=== PATIENT | male | born 1965 | race Caucasian/White ===

== ENCOUNTER 2017-03-24 08:18 | Emergency (ER) | payer OTHER ==
[~2017-03-24] VITALS: Ht 167.6 cm; Wt 76.4 kg
[2017-03-24] MEDS ORDERED: CHAN1PAK9 PO (08:40)
[2017-03-24] MEDS ORDERED: BUPR300T34 PO (08:40)
[2017-03-24] MEDS ORDERED: LORA10TA2 PO (08:40)
[2017-03-24] MEDS ORDERED: SIMV40TA2 PO (08:40)
--- NOTE | 2017-03-24 10:38 | REP ---
ABDOMINAL SERIES: Supine and erect views of the abdomen demonstrate no free air and no compelling evidence for obstruction. A couple of air-filled small bowel loops in the left mid abdomen are nonspecific. I see no abnormal calcifications. An accompanying view of the chest demonstrates no acute infiltrate. The heart is normal in size and the mediastinal silhouette is unremarkable. Please note that there are only four lumbar type vertebral bodies present indicating a transitional lumbar vertebral body. IMPRESSION: No free air obstruction. Lungs are clear. Signed by Tomy Ordonez MD 03/24/2017 04:24 P
[2017-03-24 10:42] LABS: BASO % 0.7 % (0.0-1.0); EOS # 0.2 K/mm3 (0.0-0.50); EOS % 3.2 % (0.0-3.0); LARGE UNSTAINED CELL # 0.1 K/mm3 (0.0-0.4); LARGE UNSTAINED CELL % 1.5 % (0.0-4.0); LYMPH # 1.7 K/mm3 (1.5-4.5); LYMPH % 22.3 % (24.0-44.0); MEAN CORPUSCULAR HGB CONC 33.6 g/dl (32.0-36.5); MEAN CORPUSCULAR VOLUME 92.3 fl (80.0-96.0); MONO # 0.5 K/mm3 (0.0-0.8); MONO % 7.4 % (0.0-5.0); NEUTROPHILS # 4.6 K/mm3 (1.8-7.7); NEUTROPHILS % 64.9 % (36.0-66.0); PLATELET COUNT, AUTOMATED 216 k/mm3 (150-450); RED CELL DISTRIBUTION WIDTH 13.6 % (11.5-14.5)
[2017-03-24 10:59] LABS: ANION GAP 5 MEQ/L (8-16); BLOOD UREA NITROGEN 13 MG/DL (7-18); CALCIUM LEVEL 8.9 MG/DL (8.5-10.1); CARBON DIOXIDE LEVEL 29 MEQ/L (21-32); CHLORIDE LEVEL 105 MEQ/L (98-107); CREATININE FOR GFR 0.81 MG/DL (0.70-1.30); GLOMERULAR FILTRATION RATE > 60.0 (>56); GLUCOSE, FASTING 94 MG/DL (70-105); POTASSIUM SERUM 4.2 MEQ/L (3.5-5.1); SODIUM LEVEL 139 MEQ/L (136-145)
[2017-03-24 11:33] VITALS: BP 157/93
[2017-03-24] MEDS ORDERED: COLA100C3 PO (13:38)
== END 2017-03-24 14:18 | disposition home or self-care (01) ==
LOC: M ED 09:43
DX: R10.9 Unspecified abdominal pain (principal); I10 Essential (primary) hypertension; Z87.442 Personal history of urinary calculi; F32.9 Major depressive disorder, single episode, unspecified; E78.5 Hyperlipidemia, unspecified; F17.200 Nicotine dependence, unspecified, uncomplicated; Z79.899 Other long term (current) drug therapy

== ENCOUNTER → 2017-03-30 | Outpatient (CLI) | payer OTHER ==
[~2017-03-30] MED LIST: BUPR300T34 PO; CHAN1PAK9 PO; COLA100C3 PO; LORA10TA2 PO; SIMV40TA2 PO
== END ==
LOC: M RAD 09:32
PROVIDERS: ATTEND Nurse Practitioner Adult Health
DX: M43.07 Spondylolysis, lumbosacral region (principal); M54.16 Radiculopathy, lumbar region; S33.5XXA Sprain of ligaments of lumbar spine, initial encounter; X58.XXXA Exposure to other specified factors, initial encounter; Y92.89 Other specified places as the place of occurrence of the external cause; Y93.89 Activity, other specified; Y99.8 Other external cause status

== ENCOUNTER → 2017-04-02 | Outpatient (CLI) | payer OTHER ==
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
== END ==
LOC: M RAD 08:16
PROVIDERS: ATTEND Nurse Practitioner Adult Health
DX: M54.16 Radiculopathy, lumbar region (principal); S33.5XXA Sprain of ligaments of lumbar spine, initial encounter; X58.XXXA Exposure to other specified factors, initial encounter; Y92.89 Other specified places as the place of occurrence of the external cause; Y93.89 Activity, other specified; Y99.8 Other external cause status

== ENCOUNTER → 2017-09-14 | Outpatient (REF) | payer OTHER ==
[~2017-09-14] MED LIST changes: -COLA100C3 PO; +COLA100C5 PO
[2017-09-21 06:58] LABS: SUMMARY SEE SEPARATE REPORT
== END ==
LOC: M LABDRAW1 10:33
PROVIDERS: ATTEND Physical Medicine & Rehabilitation
DX: Z01.818 Encounter for other preprocedural examination (principal); M47.896 Other spondylosis, lumbar region

== ENCOUNTER → 2018-04-26 | Outpatient (REF) | payer OTHER ==
[2018-04-26 16:05] LABS: INR 0.97
[2018-04-26 16:16] LABS: PLATELET COUNT, AUTOMATED 237 10^3/uL (150-450)
[2018-04-26 16:40] LABS: COLLAGEN EPINEPHRINE 160 SECONDS (74-162)
== END ==
LOC: M LABDRAW1 14:02
DX: Z01.812 Encounter for preprocedural laboratory examination (principal); M51.37 Other intervertebral disc degeneration, lumbosacral region
CPT/HCPCS: 85049

== ENCOUNTER → 2018-08-15 | Outpatient (REF) | LOC: M SMT 10:40 | DX: Z00.00 Encounter for general adult medical examination without abnormal findings (principal) ==

== ENCOUNTER 2018-10-23 06:06 | Inpatient (IN) | payer OTHER ==
--- NOTE | 2018-10-11 07:13 | HPE ---
DATE OF PROPOSED ADMISSION: 10/23/2018 CHIEF COMPLAINT: Bilateral leg symptoms left greater than right. Minimal back pain. HISTORY: This is a pleasant 53-year-old male patient with progressively worsening bilateral leg symptoms left greater than right as well as back pain that has been through conservative management to include epidurals and physical therapy without improvement of symptoms. He has had x-rays and MRIs of his lumbar spine consistent with a spondylolisthesis at L4-5 with transitional anatomy below the level of spondylolisthesis. There is a notable pars defect. MRI with similar findings. Continues to get leg symptoms left greater than right and he has had nerve conduction studies that were positive for radiculopathy. He has elected for surgery for his continued symptoms. He has been consented by Dr. Noel for a left unilateral laminectomy L5-S1 with posterior fusion L5-S1 with the use of pedicle screws and iliac crest and donor bone graft. CURRENT MEDICATIONS: - gabapentin 300 mg one tablet three times a day - tizanidine 4 mg up to four times a day - tramadol 50 mg as needed for pain - Claritin 10 mg as needed for seasonal allergies - propranolol 40 mg one tablet twice daily - Zocor 40 mg one tablet once per day - bupropion 300 mg one tablet once per day MEDICAL CONDITIONS INCLUDIN. Back pain. 2. Lower extremity radiculopathy, left greater than right. 3. Spondylolisthesis of the lumbar spine. 4. Seasonal allergies. 5. Elevated cholesterol. 6. Hypertension. 7. Anxiety and depression. PAST SURGICAL HISTORY: Knee scope. REVIEW OF SYSTEMS: Denies fever or chills. Denies chest pain, shortness of breath or cough. Denies difficulty breathing. Has persistent leg symptoms left greater than right as well as minimal back pain. Denies nausea or vomiting. Denies any changes bowel or bladder habits. FAMILY HISTORY: Noncontributory. SOCIAL HISTORY: He recently discontinued smoking. He uses alcohol occasionally. PHYSICAL EXAMINATION: Reveals an alert well-nourished, well-developed male patient. He ambulates with a slow gait. He does grimace getting on and off the exam table. His mood and affect appropriate for the situation. Exam of the back reveals skin to be intact. No erythema, edema or ecchymosis. There is tenderness along the lumbosacral junction without step-offs or deviations. Straight leg raise testing is irritable on the left, equivocal on the right. Deep tendon reflexes are absent in knees, absent in ankles. Clonus is negative to well-perfused bilateral lower extremities. Neck is supple without adenopathy or JVD. Lungs are clear to auscultation without rales or wheeze. Heart: Regular rate and rhythm. Abdomen: Bowel sounds are present. Blood pressure 160/80, respirations 14, pulse 68, weight 170 pounds, height 5.4, temperature 96.1. IMPRESSION: Symptomatic lumbar spondylolisthesis L5-S1 with a transitional anatomy with bilateral leg symptoms left greater than right with positive nerve conduction studies. PLAN: He has consented for a left unilateral laminectomy at L5-S1, posterior fusion L5-S1 with use pedicle screws, donor bone and iliac crest bone graft.
[2018-10-23] VITALS (7 sets, daily range): BP systolic 132–153; BP diastolic 80–95; O2SAT 93
[~2018-10-23] VITALS: Ht 167.6 cm; Wt 78.4 kg
[~2018-10-23 06:06] MED LIST changes: +CHAN1PAK13 PO; -CHAN1PAK9 PO; +GABAPENTIN 300 MG CAP PO ONE; +LORA-243 PO; -LORA10TA2 PO; +LR 1,000 ML IV ONE; +PERCOCET 5MG/325MG TAB PO ONE; +PROP40TA62 PO; +TIZA4CAP PO; +VANCOMYCIN HCL 1,000 MG, VIAL MATE ADAPTER 1 EACH in D5W 250 ML IV ONE
[2018-10-23] MEDS ORDERED: THROMBIN SOLN 5,000 UNITS VIAL As Ordered ONE (07:12)
[2018-10-23] MEDS ORDERED: BUPIVACAINE/EPIN 0.25% 30 ML VIAL As Ordered ONE (07:12)
[2018-10-23] MEDS ORDERED: EPINEPHrine INJ 1 MG/ML 1ML AMP As Ordered ONE (07:12)
[2018-10-23] MEDS ORDERED: TRANEXAMIC ACID 100 MG/ML 10ML VIAL As Ordered ONE (07:12)
[2018-10-23] MEDS ORDERED: VANCOMYCIN HCL 500 MG/10 ML VIAL (J3370) As Ordered ONE (07:12)
[2018-10-23] MEDS ORDERED: BUPIVACAINE LIPOSOME/PF 1.3% 20ML VIAL (13.3MG/ML)(EXPAREL)(C9290 PER1MG) As Ordered ONE (07:13)
[2018-10-23] MEDS ORDERED: BACITRACIN PWD 50,000 UNITS VIAL As Ordered ONE (07:13)
[2018-10-23] MEDS ORDERED: BUPIVACAINE HCL 0.5% 30 ML VIAL As Ordered ONE (07:13)
[2018-10-23] MEDS ORDERED: THROMBIN SOLN 20,000 UNITS KIT As Ordered ONE (07:16)
[2018-10-23] MEDS ORDERED: PROPOFOL 200 MG/20 ML VIAL As Ordered ONE (07:20)
[2018-10-23] MEDS ORDERED: ROCURONIUM BROMIDE 50 MG/5 ML VIAL As Ordered ONE ×2 (07:20→08:44)
[2018-10-23] MEDS ORDERED: LIDOCAINE 2% INJ 100 MG/5 ML SDV (FOR ANES.) As Ordered ONE (07:20)
[2018-10-23] MEDS ORDERED: MIDAZOLAM INJ 2 MG/2 ML VIAL (J2250) As Ordered ONE (07:21)
[2018-10-23] MEDS ORDERED: fentaNYL 100 MCG/2 ML INJECTION (J3010) As Ordered ONE ×3 (07:21→09:53)
[2018-10-23] MEDS ORDERED: dexameTHASONE 4 MG/ML 1ML VIAL (J1100) As Ordered ONE (07:52)
[2018-10-23] MEDS ORDERED: PHENYLEPHRINE INJ 10MG/ML VIAL (J2370) As Ordered ONE ×2 (08:34→08:42)
[2018-10-23] MEDS ORDERED: VASOPRESSIN INJ 20 UNITS/ML VIAL As Ordered ONE (08:37)
[2018-10-23] MEDS ORDERED: CALCIUM CHLORIDE 10% 1 GM/10 ML SYR As Ordered ONE (08:45)
[2018-10-23] MEDS ORDERED: EPINEPHrine 1MG/10ML SYRINGE 1.5IN As Ordered ONE (09:33)
[2018-10-23] MEDS ORDERED: GLYCOPYRROLATE INJ 0.2 MG/ML 2 ML VIAL As Ordered ONE (09:37)
[2018-10-23] MEDS ORDERED: ONDANSETRON 4MG/2ML VIAL (J2405) As Ordered ONE (11:18)
[2018-10-23] MEDS ORDERED: HYDROmorphone HCL 2 MG/ML 1ML VIAL (J1170) As Ordered ONE (11:43)
[2018-10-23] MEDS ORDERED: LR 1,000 ML IV SCH (13:45)
[2018-10-23] MEDS ORDERED: tiZANidine 4 MG TAB PO PRN (13:45)
[2018-10-23] MEDS ORDERED: ACETAMINOPHEN TAB 650MG DOSE (2X325MG) PO PRN (13:45)
[2018-10-23] MEDS ORDERED: ONDANSETRON 4MG/2ML VIAL (J2405) IV PRN (13:45)
[2018-10-23] MEDS ORDERED: HYDROMORPHONE HCL 0.5 MG/ 0.5 ML SYRINGE (J1170 PER 1) IV PRN ×2 (13:45)
[2018-10-23] MEDS ORDERED: PROMETHAZINE INJ 25 MG/ML VIAL (J2550) IV PRN (13:45)
[2018-10-23] MEDS ORDERED: PERCOCET 5MG/325MG TAB PO PRN (13:45)
[2018-10-23] MEDS ORDERED: NORTRIPTYLINE 10 MG CAP PO PRN (13:45)
[2018-10-23] MEDS: fentaNYL 100 MCG/2 ML INJECTION (J3010) IV PRN ×4 (14:00→14:15)
--- NOTE | 2018-10-23 14:06 | REP ---
PARTIAL LUMBAR SPINE, FOUR VIEWS: HISTORY: Spondylolisthesis. COMPARISON: 08/15/2018 Four portable radiographs were obtained. The first radiograph demonstrates metal probes overlying the neural arch at the L5-S1 level. The third and fourth radiographs demonstrate the patient to be status-post L5-S1 posterior spinal fusion. Metal hardware is present. Fluoroscopy time 2 minutes and 10 seconds. IMPRESSION:The patient is status-post L5-S1 posterior spinal fusion. Electronically Signed by Gerry Lyle MD 10/23/2018 02:10 P
[2018-10-23] MEDS: PERCOCET 5MG/325MG TAB PO PRN ×3 (14:08→18:39)
[2018-10-23] MEDS: GABAPENTIN 300 MG CAP PO SCH ×2 (16:12→20:35)
[2018-10-23] MEDS: VANCOMYCIN HCL 1,000 MG, VIAL MATE ADAPTER 1 EACH in D5W 250 ML IV SCH (18:28)
[2018-10-24] MEDS: PERCOCET 5MG/325MG TAB PO PRN ×3 (00:13→08:55)
[2018-10-24 02:00] VITALS: BP 141/76
[2018-10-24 06:00] VITALS: BP 158/88
[2018-10-24] MEDS ORDERED: ONDANSETRON 4MG/2ML VIAL (J2405) IV PRN (06:00)
[2018-10-24] MEDS ORDERED: ONDANSETRON 4 MG TAB (S0181) PO PRN (06:00)
[2018-10-24] MEDS: VANCOMYCIN HCL 1,000 MG, VIAL MATE ADAPTER 1 EACH in D5W 250 ML IV SCH (06:42)
[2018-10-24] MEDS ORDERED: ZOFR4TAB16 PO (08:28)
[2018-10-24] MEDS ORDERED: PERC5TAB12 PO (08:28)
[2018-10-24] MEDS ORDERED: CALCIUM CARBONATE 500 MG CHEW U/D PO PRN (08:45)
[2018-10-24 08:54] VITALS: BP 158/88
[2018-10-24] MEDS: GABAPENTIN 300 MG CAP PO SCH (08:54)
[2018-10-24 09:00] VITALS: O2SAT 95
[2018-10-24] MEDS ORDERED: ASPIRIN 81 MG ENTERIC TAB PO SCH (09:00)
[2018-10-24] MEDS ORDERED: LORATADINE 10 MG TAB PO SCH (09:00)
[2018-10-24] MEDS ORDERED: SIMVASTATIN 40 MG TAB PO SCH (09:00)
[2018-10-24] MEDS ORDERED: PROPRANOLOL 20 MG TAB PO SCH (09:00)
[2018-10-24] MEDS ORDERED: buPROPion **XL** TABLET 150MG (WELLBUTRIN XL) PO SCH (09:00)
[2018-10-24 10:00] VITALS: BP 111/67
[2018-10-25] MEDS ORDERED: FLUBLOK(EGG FREE)(QUAD)INFLUENZA VACC 0.5ML SYRINGE (90682)18YRS&OLDER IM ONE (09:00)
--- NOTE | 2018-10-25 09:57 | RO ---
DATE OF PROCEDURE: 10/23/2018 PREOPERATIVE DIAGNOSIS: Lumbosacral spondylolisthesis at L5-S1 with left lower extremity radiculopathy. POSTOPERATIVE DIAGNOSIS: Lumbosacral spondylolisthesis at L5-S1 with left lower extremity radiculopathy. PROCEDURE PERFORMED: Left unilateral laminectomy at L5 for decompression of the thecal sac and exiting nerve root. Left unilateral laminectomy S1 for decompression of the thecal sac and traversing nerve root. Posterior intertransverse arthrodesis L5-S1. Posterior non-segmental instrumentation L5-S1. Weldon and placement of morselized right iliac crest autograft for spine surgery also utilized crushed allograft, also utilized local bone. SURGEON: Dr. Messi Noel. ENTERPRISE APPLICATIONS MANAGER: Mr. Emory Lambert PA-C. ANESTHESIA: General. ESTIMATED BLOOD LOSS: Less than 200 mL replaced with crystalloid. COMPLICATIONS: No complications. INDICATIONS: Left lower extremity radicular pain/neurogenic claudication secondary to dynamic listhesis at L5-S1. Transitional anatomy also appreciated at L5-S1. COMPONENTS USED: Include paymio 6.35 system, 7 mm screws times four of the appropriate length, end caps, appropriate connecting rods. Consent reviewed in detail including a tony discussion of the pathology involved, the procedure proposed, alternatives including doing nothing and risks including not limited to pain, failure, infection, bleeding blood loss, incomplete relief pseudoarthrosis or failure to heal, paralysis, infection, and other issues. Specifically talked about the risk of nicotine as the patient has recently been quit smoking. Relapsing to nicotine use could compromise outcome and the patient understands. DESCRIPTION OF PROCEDURE: Identified holding area, site side verified, brought to the operating room, positioned on the Ramez frame for exposure of the lumbar spine. Once I and the flight communications operator were comfortable with the patient's positioning, we then began the surgical procedure. He was sterilely prepped, draped in the usual fashion for exposure of the lumbar spine. Mr. Lambert initiated the patient's right side. I was initially on the patient's left side. I utilized 3.5 loop magnification initially as well as a headlamp. The incision outlined with marking pen, infiltrated with 0.25% Marcaine with epinephrine, made with a 10 blade, developed down through skin, subcuticular tissues to the posterior lumbar fascia. Good step-off was appreciated at the spondylolisthetic level/slipped level. Sharp knife was utilized to incise the posterior lumbar fascia parallel to the spinous processes on the patient's left. Dissection continued exposing the interspace at L5-S1. Once this was done, a divot was drilled in the posterior lamina of S1 and a cross-table lateral x-ray was taken to verify our level. Once this was accomplished with Mr. Lambert and I switched sides. The contralateral release of the posterior lumbar fascia and muscle tissue was accomplished on the patient's right side and Mr. Lambert utilized to his retractors to assist me in exposing the transverse processes on the patient's right side. Next, we then switched sides again and Mr. Lambert utilized Kip retractors to help me expose the transverse processes using Bovie cautery on the patient's right side. Next, once this was accomplished, irrigation was accomplished, retractors were placed, the operating microscope was draped and brought in for additional portions of the procedure. I did utilized a Leksell to remove posterior lamina structure and hypertrophied facette structure and this was retained for local graft. Next, through the operating microscope, I utilized the high-speed bur to implement the left unilateral laminectomy of L5 level extending through the pars defect laterally and into the S1 lamina through the bare area of S1 undercutting the spinous processes. Then I elevated the ligamentum flavum and removed it using #2 Kerrison. The dissection here was found tedious especially as we entered the pars defect because of adhesions and this was carefully done using curved curettes and Kerrison and Crow. Next, I was able to identified the exiting nerve root and this was appreciated be significantly decompressed. We also were able to palpate along the course of the pedicles and the traversing nerve root. Next, irrigation was accomplished. At this stage the microscope was moved back and we entered the next phase of the procedure. My loops were we re-installed as well as the headlamp and we donned lead and then sterilely gowned again. next, Mr. Lambert utilized Kip retractors to expose the right posterior-superior iliac spine. I opened a separate fascial incision, removed the iliac crest bone graft using Leksell as well as large Pack curettes. This was retained. I irrigated the site anesthetized, using Exparel solution and then closed over dry Gelfoam with interrupted stitch. Next, once this was accomplished we turned our attention to placement of the pedicle screws. The C-arm was draped, brought in. We placed probes at the pedicle of 5 and S1 and felt a mediolateral orientation on the right facets was appropriate. Next, in the lateral field, we obtained good visualization and I advanced the pedicle finder through the pedicle of 5 into the L5 vertebral bone body. Propped with a ball-tip probe to ensure that we would in the pedicle track. Then utilized the 6-0 tap. Then again utilized the ball-tipped probe to verify pedicle tract and not breach anteriorly. We then selected, on the right, and L5 50 mm screw, which was placed based on measurement off of the ball-tip wire as well as the tap. Once this was accomplished the S1 pedicle was cannulated and a similar fashion, although at S1 we utilized a 45 screw. Next the once this was accomplished. Mr. Lambert utilized Kip retractors to expose the transverse processes, which were decorticated and I placed morselized iliac crest bone graft and some allograft over the transverse processes and over the pars defect. Next, I did obtain the 30 mm connecting tarsha. It was placed between the two of the screw heads. It was secured to the S1 screw, locked into place for a reduction. I then utilized a persuader to pull the L5 vertebral posteriorly and put the end cap at L5 into place. Next, I then distracted to reduce the angular deformity and then I locked the L5 screw head using the torque/counter torque device. Radiographically there was significant improvement in the listhesis as well as the angular deformity. Next turned attention to the contralateral side. Pedicles were cannulated and pedicle screws placed in a similar fashion including use of the ball-tipped guide to verify that we were not breaching anteriorly into the pedicle pack. We placed the appropriate length screw at L5 as well as S1 based on measurement off of the ball-tip wire as well as the pedicle finder and fat. Next, these were all 7 mm screws. Hands on the contralateral side, we placed the connecting tarsha, locked the S1 level and pulled the L5 level posteriorly and then distracted. We again appreciated an improvement in the overall listhesis as well as the annular deformity. Next, Mr. Lambert then utilized the retractors and we decorticated the transverse processes of L5 and S1 and placed the remaining iliac crest bone graft between the transverse processes. We had also irrigated on both sides prior to placement of bone graft. On the contralateral side, I utilized Kip retractors and Mr. Lambert placed the remaining iliac crest and the local graft and crushed cancellus graft over the interlaminar space, the pars defect and between the transverse processes. Next, vancomycin crystals approximately 500 mg were placed over the screw heads and caps. Final fluoroscopic images were obtained and found to be adequate. All retractors were removed. We inspected the thecal sac. We appreciated no cerebrospinal fluid (CSF) leak. No active bleeding. We did utilize approximately 60 mL TXA solution prior to placement of the bone graft. This had been allowed to stand bilaterally in the wound for about 1 minute. We also used Exparel solution. This was injected into the soft tissues and muscle fascial tissues and subcuticular tissues prior to closure. Next, posterior lumbar fascia was reapproximated with interrupted stitch deep, the dermis with interrupted stitch. Pernio dressing was utilized on skin. The patient was log-rolled to his hospital bed and extubated, moved to the recovery room in good condition moving all four extremities. Please note that Shiloh and Petra were present participating in for the entirety of this case.
[2018-10-25] MEDS ORDERED: ZOFR4TAB16 PO (16:39)
[2018-10-25] MEDS ORDERED: PERC5TAB12 PO (16:39)
[2018-10-25] MEDS ORDERED: LORA-243 PO (16:50)
[2018-10-25] MEDS ORDERED: GABA-843 PO (16:50)
[2018-10-25] MEDS ORDERED: MONT10TA2 PO (16:50)
== END 2018-10-24 11:00 | disposition home or self-care (01) | DRG 304 ==
LOC: M OR 06:06 → EDSTATUS 12:45 → M MS5PR 15:00
PROVIDERS: ADMIT Orthopaedic Surgery; ATTEND Orthopaedic Surgery
PROC: 0QB30ZZ Excision of Left Pelvic Bone, Open Approach (ICD-10-PCS; 2018-10-23)
PROC: 0SG00AJ Fusion of Lumbar Vertebral Joint with Interbody Fusion Device, Posterior Approach, Anterior Column, Open Approach (ICD-10-PCS; 2018-10-23)
PROC: 0SG3071 Fusion of Lumbosacral Joint with Autologous Tissue Substitute, Posterior Approach, Posterior Column, Open Approach (ICD-10-PCS; principal; 2018-10-23 07:30)
DX: M43.16 Spondylolisthesis, lumbar region (principal); I10 Essential (primary) hypertension; Z79.899 Other long term (current) drug therapy; F41.9 Anxiety disorder, unspecified; F32.9 Major depressive disorder, single episode, unspecified

== ENCOUNTER 2018-10-25 13:10 | Observation (INO) | payer OTHER ==
[~2018-10-25] VITALS: Ht 167.6 cm; Wt 78.7 kg
[~2018-10-25 13:10] MED LIST changes: -GABAPENTIN 300 MG CAP PO ONE; -LR 1,000 ML IV ONE; +PERC5TAB12 PO; -PERCOCET 5MG/325MG TAB PO ONE; -VANCOMYCIN HCL 1,000 MG, VIAL MATE ADAPTER 1 EACH in D5W 250 ML IV ONE; +ZOFR4TAB16 PO
[2018-10-25 13:52] LABS: BASO % 0.2 % (0.0-1.0); EOS % 0.1 % (0.0-3.0); HEMATOCRIT 37.7 % (42.0-52.0); HEMOGLOBIN 12.6 g/dl (13.5-17.5); LYMPH % 8.6 % (24.0-44.0); MEAN CORPUSCULAR HEMOGLOBIN 30.8 pg (27.0-33.0); MEAN CORPUSCULAR HGB CONC 33.4 g/dl (32.0-36.5); MEAN CORPUSCULAR VOLUME 92.2 fl (80.0-96.0); MONO # 1.2 10^3/uL (0.0-0.8); MONO % 10.1 % (0.0-5.0); NEUTROPHILS # 9.7 10^3/uL (1.8-7.7); NEUTROPHILS % 80.6 % (36.0-66.0); PLATELET COUNT, AUTOMATED 214 10^3/uL (150-450); RED BLOOD COUNT 4.09 10^6/uL (4.30-6.10)
[2018-10-25 14:28] LABS: ALT/SGPT 53 U/L (12-78); BILIRUBIN,TOTAL 0.5 MG/DL (0.2-1.0); BLOOD UREA NITROGEN 19 MG/DL (7-18); CALCIUM LEVEL 8.9 MG/DL (8.5-10.1); CARBON DIOXIDE LEVEL 28 MEQ/L (21-32); CHLORIDE LEVEL 98 MEQ/L (98-107); CREATININE FOR GFR 0.82 MG/DL (0.70-1.30); GLOMERULAR FILTRATION RATE > 60.0 (>56); GLUCOSE, FASTING 103 MG/DL (70-100); POTASSIUM SERUM 3.9 MEQ/L (3.5-5.1); SODIUM LEVEL 134 MEQ/L (136-145); TOTAL PROTEIN 5.9 GM/DL (6.4-8.2)
[2018-10-25] MEDS ORDERED: ACETAMINOPHEN 325 MG TAB PO ONE (14:30)
[2018-10-25] MEDS ORDERED: ONDANSETRON 4MG/2ML VIAL (J2405) IV ONE (14:30)
[2018-10-25 15:03] LABS: ERYTHROCYTE SEDIMENTATION RATE 46 mm/hr (0-20)
--- NOTE | 2018-10-25 15:06 | REP ---
Chest one-view HISTORY: Cough Comparison: 03/24/2017 Linear density is present in the right lower lobe consistent with atelectasis or scar. The left lung is clear. The heart is normal in size. The pulmonary vasculature is normal in appearance. Impression: Right lower lobe atelectasis or scar. Electronically Signed by Gerry Lyle MD 10/25/2018 02:57 P
[2018-10-25] MEDS ORDERED: NS 1,000 ML IV ONE (15:15)
[2018-10-25 15:51] LABS: INFLUENZA A AMPLIFICATION NEGATIVE (NEGATIVE); INFLUENZA B AMPLIFICATION NEGATIVE (NEGATIVE)
[2018-10-25] MEDS ORDERED: ISOVUE-370 76% 100ML VIAL (Q9967) As Ordered ONE (16:19)
[2018-10-25] MEDS ORDERED: ZOFR4TAB16 PO (16:39)
[2018-10-25] MEDS ORDERED: PERC5TAB12 PO (16:39)
[2018-10-25] MEDS ORDERED: GABA-843 PO (16:50)
[2018-10-25] MEDS ORDERED: MONT10TA2 PO (16:50)
[2018-10-25] MEDS ORDERED: LORA-243 PO (16:50)
--- NOTE | 2018-10-25 16:53 | REP ---
CT pulmonary angiogram: With IV contrast. History: Postop. Question pulmonary embolus. Recent lumbar surgery. Comparison studies: No comparison CT study. Contrast dose: 100 mL of Isovue [address] technique: Helical scanning is acquired and overlapping 1.5 mm and contiguous 3 mm axial images are reformatted. In addition, maximum intensity projection and multiplanar re-formation images are generated in sagittal and coronal imaging projections. CT pulmonary angiographic findings: There is good opacification of the pulmonary arterial tree. There is no CT evidence of pulmonary embolism. Thoracic aorta is without evidence of aneurysm or dissection. No pleural or pericardial effusion is seen. No hilar or mediastinal mass or adenopathy is observed. There is some fissural thickening in the major fissure on the right mild in degree. Mild bibasilar plate-like atelectasis is seen. No infiltrate is noted. There is a left adrenal nodule measuring 2.8 x 2.0 x 2.4 cm in diameter. No right adrenal abnormality is seen. Impression: No CT evidence of pulmonary embolus. Mild bibasilar discoid atelectasis. There is a small left adrenal nodule. Possible adrenal adenoma. Noncontrast CT versus MRI scanning recommended. Electronically Signed by Jose Daniel Smith MD 10/25/2018 07:42 P
--- NOTE | 2018-10-25 17:30 | REP ---
CT abdomen and pelvis with IV but without oral contrast: History: Postop. Post lumbar surgery. CT contrast dose: 100 ml of intravenous Isovue 370. CT findings: Preliminary digital water plant pump operator radiograph shows transpedicular screws at L5 and S1 bilaterally with interconnecting fusion rods. There is a left adrenal nodule measuring 2.9 cm in greatest diameter. This appears to be heterogeneously enhancing on this contrast-enhanced exam. The right adrenal is normal. No focal liver or spleen lesion is seen. No pancreatic abnormality is noted. There are tiny nodular foci of increased attenuation on the gallbladder wall of uncertain significance. Possible polyp versus a tiny stone. The kidneys enhance symmetrically and are morphologically intact. No retroperitoneal mass is seen. No hematoma is appreciated. No retroperitoneal tibial soft tissues. Vascular calcification is seen in the distal aorta which is small in caliber. Vascular calcifications noted in the common iliac arteries bilaterally. These are also small in caliber. There is some edematous fat or fluid in the pericolic gutter on the right extending down to the inguinal canal. A donor site is seen in the bone of the right posterior iliac crest for posterior element fusion. No bony destructive lesion is seen. Prostate contains calcifications. Urinary bladder is unremarkable. No abdominal wall defect is seen. Normal appendix is seen. Impression: 1. 2.9 cm left adrenal nodule, possibly adenoma. Noncontrast CT study versus adrenal MRI protocol imaging suggested. 2. Postoperative changes status post fusion in the lumbar spine with a right iliac crest harvest site for bone effusion elements. 3. Infiltration of the pericolic gutter fat and iliopsoas fat on the right consistent with postoperative edema. No abnormal fluid collection is seen. Otherwise negative. Electronically Signed by Jose Daniel Smith MD 10/25/2018 07:43 P
[2018-10-25] MEDS ORDERED: PERCOCET 5MG/325MG TAB PO ONE (18:45)
[2018-10-25] MEDS ORDERED: NS 1,000 ML IV SCH (21:30)
[2018-10-25] MEDS: NS 1,000 ML IV SCH (22:10)
[2018-10-25] MEDS: ONDANSETRON 4MG/2ML VIAL (J2405) IV PRN (22:10)
[2018-10-25] MEDS ORDERED: LORATADINE 10 MG TAB PO PRN (22:15)
[2018-10-25] MEDS ORDERED: ONDANSETRON 4 MG TAB (S0181) PO PRN (22:15)
[2018-10-25] MEDS: ACETAMINOPHEN TAB 650MG DOSE (2X325MG) PO PRN (23:05)
[2018-10-25 23:40] VITALS: BP 160/70
[2018-10-26 01:30] VITALS: BP 138/72
[2018-10-26] MEDS: ONDANSETRON 4MG/2ML VIAL (J2405) IV PRN (03:03)
[2018-10-26] MEDS ORDERED: SENOKOT S TAB PO PRN (05:00)
[2018-10-26 06:00] VITALS: BP 140/85
--- NOTE | 2018-10-26 06:19 | HPE ---
DATE OF ADMISSION: 10/25/2018 HISTORY OF PRESENT ILLNESS (HPI): This is a 53-year-old male with a past medical history of hypertension, hyperlipidemia, history of chronic low back pain, status post left unilateral laminectomy of L5-S1 with posterior fusion of L5-S1 three days ago who was discharged yesterday from the hospital. He did receive the flu shot before he was discharged and was noted to have a temperature of 101 on the discharge date with subsequent relief of the pyrexia after Tylenol was given. The patient said when he went home he was not feeling well. He was nauseous and vomited once and did have high fevers, though he did not measure his temperature. In the emergency room (ER) he was found to have a temperature of 102 and he had a 12,000 white count. He had a CT of the chest, abdomen and pelvis all of which were negative. His urinalysis was negative. When I went to interview the patient he is currently eating his food though he still feels nauseous so he will be admitted for further management. PAST MEDICAL HISTORY: 1. Chronic low back pain status post left unilateral laminectomy of L5-S1 with posterior fusion of L5-S1. 2. History of seasonal allergies. 3. Hyperlipidemia. 4. Hypertension. 5. Anxiety. 6. Depression. ALLERGIES: PENICILLIN. FAMILY HISTORY: Noncontributory. SOCIAL HISTORY: The patient denies tobacco, alcohol or illicit drugs. MEDICATIONS: He takes as follows: - bupropion 300 mg by mouth daily - gabapentin 300 mg orally two times a day - loratadine 10 mg orally daily as needed - montelukast 10 mg orally daily - Zofran 4 mg orally every six hours as needed - oxycodone/acetaminophen 5/325 one tab orally every six hours as needed - propranolol 40 mg orally daily - simvastatin 40 mg orally daily - tizanidine 4 mg orally two times a day - Chantix 1 mg by mouth twice a day REVIEW OF SYSTEMS: Negative for all 10 major systems except what has been mentioned in the HPI. PHYSICAL EXAMINATION VITAL SIGNS: Blood pressure 155/78, heart rate 103 regular, respirations 18, temperature 99.9 orally, Oxygen saturation 97% on room air. HEAD: Normocephalic atraumatic. NECK: Supple, no jugular venous distention (JVD). LUNGS: Clear to auscultation. S1, S2 audible. No murmurs appreciated. ABDOMEN: Soft. Positive bowel sounds. There is no pedal edema. SKIN: Clean surgical wound noted, no loculation. NEUROLOGIC: Patient awake, alert, oriented times three. LABORATORY DATA: Urinalysis (UA) is negative for urinary tract infection (UTI). Chemistries: Sodium 134, potassium 3.4, chloride 98, CO2 28, anion gap 8. BUN 19, creatinine 0.82, glucose 103. WBC12, hemoglobin 12.6, hematocrit 37.7, platelets 214,000. IMPRESSION: Systemic inflammatory response syndrome. PLAN: The patient is to be admitted to the med-surg floor on an observation status. I do not believe there is any specific pathology that is causing this pyrexia and leukocytosis. I feel that the patient's fever and leukocytosis is secondary to postoperative normal reactions and/or the addition of receiving the flu vaccine while having a high fever. There is also the possibility that he may have a viral gastroenteritis. In any case, this is all supportive care. I will start the patient on intravenous fluids, normal saline at 125 mL per hour and give him Zofran for his nausea and vomiting. Will hold off on any antibiotics at this time. There is no indication and will continue following his care on the med-surg floor.
[2018-10-26] MEDS: HEPARIN SOD (PORCINE) 5000 UNITS/ML VIAL SC SCH ×3 (06:23→22:00)
[2018-10-26] MEDS: NS 1,000 ML IV SCH ×3 (06:24→22:09)
[2018-10-26 06:30] LABS: BASO % 0.2 % (0.0-1.0); EOS % 0.2 % (0.0-3.0); HEMATOCRIT 33.4 % (42.0-52.0); HEMOGLOBIN 11.3 g/dl (13.5-17.5); LYMPH # 0.8 10^3/uL (1.5-4.5); LYMPH % 8.1 % (24.0-44.0); MEAN CORPUSCULAR HGB CONC 33.8 g/dl (32.0-36.5); MEAN CORPUSCULAR VOLUME 91.5 fl (80.0-96.0); MONO % 9.9 % (0.0-5.0); NEUTROPHILS # 8.1 10^3/uL (1.8-7.7); NEUTROPHILS % 80.8 % (36.0-66.0); PLATELET COUNT, AUTOMATED 193 10^3/uL (150-450); RED BLOOD COUNT 3.65 10^6/uL (4.30-6.10)
[2018-10-26] MEDS: PERCOCET 5MG/325MG TAB PO PRN ×2 (06:35→13:34)
[2018-10-26 06:59] LABS: BLOOD UREA NITROGEN 17 MG/DL (7-18); CALCIUM LEVEL 8.1 MG/DL (8.5-10.1); CARBON DIOXIDE LEVEL 26 MEQ/L (21-32); CHLORIDE LEVEL 102 MEQ/L (98-107); CREATININE FOR GFR 0.74 MG/DL (0.70-1.30); GLOMERULAR FILTRATION RATE > 60.0 (>56); GLUCOSE, FASTING 106 MG/DL (70-100); POTASSIUM SERUM 3.5 MEQ/L (3.5-5.1); SODIUM LEVEL 137 MEQ/L (136-145)
[2018-10-26] MEDS ORDERED: MAGNESIUM CITRATE 300 ML BTL PO ONE (08:00)
[2018-10-26] MEDS: tiZANidine 4 MG TAB PO SCH ×3 (08:38→20:37)
[2018-10-26] MEDS: SIMVASTATIN 40 MG TAB PO SCH (08:38)
[2018-10-26] MEDS: VARENICLINE 1 MG TABLET PO SCH ×2 (08:38→20:37)
[2018-10-26] MEDS: buPROPion **XL** TABLET 150MG (WELLBUTRIN XL) PO SCH (08:38)
[2018-10-26] MEDS: PROPRANOLOL 20 MG TAB PO SCH (08:39)
[2018-10-26] MEDS: GABAPENTIN 300 MG CAP PO SCH ×3 (08:39→20:37)
[2018-10-26] MEDS: MONTELUKAST 10 MG TAB PO SCH (08:39)
[2018-10-26 14:00] VITALS: BP 116/56
--- NOTE | 2018-10-26 14:23 | CR ---
DATE: 10/26/2018 CHIEF COMPLAINT: Malaise and nausea. HISTORY: 53-year-old gentleman. He did have a spinal fusion this past Tuesday without complication. Was discharged to home. Came back to the emergency room (ER) yesterday, Tuesday with tachycardia, a fever of 102, as well as reported nauseousness and hiccups. He indicated that his back was not usually painful but his leg symptoms were still improved, and that he is not having numbness and tingling. The patient has not had a bowel movement since Tuesday, today is . Because of his tachycardia and history of recent surgery, he did have CT angiogram to make sure that he was not having a pulmonary embolism. That was negative. He also had a CT of the abdomen to make sure there was no abdominal pathology, and I did review that as well for pedicle screw placement, which appeared to be adequate. He did have a white count of 12. He also had lab that is positive this morning for respiratory syncytial virus. MEDICAL HISTORY: Chronic low back pain and radicular symptoms, seasonal allergies, hyperlipidemia, hypertension, anxiety, depression. ALLERGY to PENICILLIN. FAMILY HISTORY: Noncontributory. SOCIAL HISTORY: Noncontributory. Quit smoking recently prior to his back surgery about 30 days ago. MEDICATIONS: - bupropion - gabapentin - loratadine - montelukast - Zofran - oxycodone - propranolol - simvastatin - tizanidine - Chantix REVIEW OF SYSTEMS: As per history of present illness (HPI), otherwise negative. CLINICAL EXAMINATION: He is alert, oriented and cooperative. He seems to be more comfortable than he had been in the ER. His abdomen is not distended. He is able talk in complete sentences. The wound is clean, dry. No erythema. Neurologically intact lower extremities. LABORATORY DATA: Positive respiratory syncytial virus. White count down to 10 from 12 yesterday. IMPRESSION: Suspect the patient may have a combination of postoperative discomfort, respiratory syncytial virus, and potential postoperative ileus or constipation. RECOMMENDATIONS: At this point, the patient does not seem to be obstructed. His abdomen is not distended, and he is not nauseous this morning. In my opinion, it seems reasonable to proceed with bowel medication such as magnesium citrate to try to get that moving. Symptomatic management of the respiratory syncytial virus. Observation in terms of his low back recent surgery.
[2018-10-26] MEDS ORDERED: FLEET ENEMA PR PRN (19:15)
[2018-10-26] MEDS ORDERED: MIRALAX *UNIT DOSE* 17GM PACKET PO PRN (19:15)
[2018-10-26] MEDS: ACETAMINOPHEN TAB 650MG DOSE (2X325MG) PO PRN (20:37)
--- NOTE | 2018-10-26 21:00 | IPN ---
DATE: 10/26/2018 SUBJECTIVE: Patient is seen and examined in the room today. During encounter patient stated his fever has been improving since admission. His nausea has been improving. Patient had no bowel movement since his procedure. OBJECTIVE: VITAL SIGNS: Temperature is 98.8, pulse 107, respirations 19, blood pressure 140/85, pulse oximetry 98% on room air. GENERAL: Patient is alert, awake. Patient is oriented. HEENT: Normocephalic, atraumatic. Extraocular motors grossly intact. CARDIOVASCULAR: Positive S1, S2. Mild tachycardic. LUNGS: Clear to auscultation bilaterally. ABDOMEN: Soft, nontender, nondistended. Bowel sounds present. EXTREMITIES: There is a bandage on the lower mid lumbar region. No tenderness to palpation in the surrounding area. No significant erythema noted. No active discharge noted. No peripheral edema. LABORATORY DATA: WBC 10, hemoglobin 11.3, hematocrit 32.4, platelet count is 193. Sodium is 137, potassium 3.6. Chloride 102. Carbon dioxide 26, BUN 17, creatinine 0.74. GFR greater than 60, fasting glucose is 106. Calcium 8.1. ASSESSMENT AND PLAN: 1. Postoperative fever. Patient had lumbar surgery performed 10/23/2018. Patient presented in the emergency room with fever close to 102. Diagnostic workup performed. Blood culture remain negative. So far urine culture is negative. Patient is positive for respiratory syncytial virus (RSV). Chest x-ray is negative. CT abdomen and pelvis negative. Will consult orthopedic team for wound evaluation. Fever is improving since admission. Source is systemic inflammatory response syndrome (SIRS). Patient just had a recent procedure done. Patient does have a positive RSV. Temperature has been improving since admission with antibiotics and no evidence suggests bacterial infection at this moment. Initially, patient started on fluid support. Patient vitals have remained stable. Patient tolerated good oral intake. IV fluid will be discontinued. Continue monitoring patient closely. 2. Hypertension. Blood pressure in the satisfactory range. Patient is on propranolol. 3. Anxiety/depression. On Wellbutrin. 4. Postoperative ileus. Bowel regimen initially. Continue to monitor the patient. 5. Deep venous thrombosis (DVT) prophylaxis. heparin.
[2018-10-26 22:00] VITALS: BP 134/78
[2018-10-27] MEDS: HEPARIN SOD (PORCINE) 5000 UNITS/ML VIAL SC SCH (05:01)
[2018-10-27] MEDS: PERCOCET 5MG/325MG TAB PO PRN (05:05)
[2018-10-27] MEDS: NS 1,000 ML IV SCH (05:34)
[2018-10-27 06:00] VITALS: BP 152/80
[2018-10-27 08:13] VITALS: BP 152/80
[2018-10-27] MEDS: GABAPENTIN 300 MG CAP PO SCH (08:13)
[2018-10-27] MEDS: PROPRANOLOL 20 MG TAB PO SCH (08:13)
[2018-10-27] MEDS: SIMVASTATIN 40 MG TAB PO SCH (08:14)
[2018-10-27] MEDS: buPROPion **XL** TABLET 150MG (WELLBUTRIN XL) PO SCH (08:14)
[2018-10-27] MEDS: tiZANidine 4 MG TAB PO SCH (08:14)
[2018-10-27] MEDS: ACETAMINOPHEN TAB 650MG DOSE (2X325MG) PO PRN (08:14)
[2018-10-27] MEDS: MONTELUKAST 10 MG TAB PO SCH (08:14)
[2018-10-27] MEDS: VARENICLINE 1 MG TABLET PO SCH (08:15)
[2018-10-27] MEDS ORDERED: MIRALAX *UNIT DOSE* 17GM PACKET PO SCH (09:00)
[2018-10-27] MEDS ORDERED: SENOKOT S TAB PO SCH (09:00)
--- NOTE | 2018-10-27 22:27 | DSES ---
DATE OF ADMISSION: 10/25/2018 DATE OF DISCHARGE: 10/27/2018 PRIMARY CARE PROVIDER: Sarina Hernandez CONSULTING PHYSICIAN: Orthopedic team. DISCHARGE DIAGNOSES: 1. Postoperative fever. 2. Hypertension. 3. Anxiety/depression. 4. Postoperative ileus. HOSPITALIZATION COURSE: The patient is a 53-year-old gentleman with a recent admission for lumbar surgery on 10/23/2018. Patient was discharged from [facility] on 10/24/2018; however, the patient continued to have a persistent fever and nausea and vomiting, so the patient came back to [facility] on 10/25/2018 with a fever and nausea, vomiting and mild elevation of the white count. Initially the patient was treated for systemic inflammatory response syndrome (SIRS). Diagnostic workup initiated. Patient started on IV support. Shortly after, the respiratory panel came back positive for respiratory syncytial virus (RSV). Orthopedic team was also consulted for postoperative wound care and evaluation. With conservative medical management, the patient's fever resolved, nausea and vomiting also resolved. Patient's clinical picture continued to improve, and the patient returned to his functional baseline. During this hospitalization, patient also being treated for postoperative ileus with a bowel movement regimen. Patient finally had several bowel movements. On 10/27/2018, patient evaluated by physical therapy and determined patient has returned to his functional baseline and patient was determined medically stable for discharge with the recommendation to followup with primary care provider in 1-2 weeks. Patient also should followup with orthopedic team at the scheduled time. OBJECTIVE: Vital Signs: Temperature is 97.1, pulse is 100, respirations of 19, blood pressure 152/80, pulse oximetry is 95% in room air. LABORATORY DATA: WBC is 10, hemoglobin is 11.3, hematocrit is 33.4, platelet count is 293. Sodium is 137, potassium 3.5, chloride 102, carbon dioxide 26, BUN 17, creatinine 0.74, GFR greater than 60, fasting glucose 106, calcium 8.1. Urinalysis is negative. Influenza is negative. Blood culture preliminary showed no growth after 48 hours times two sets. Urine culture showed no growth. Respiratory panel is positive for RSV. IMAGING STUDIES: Chest x-ray showed right lower lobe atelectasis or scar. CT angiogram of the chest demonstrated no CT evidence of pulmonary embolism (PE). Mild bilateral discoid atelectasis. Small left adrenal nodule. Possible adrenal adenoma. CT of the abdomen and pelvis with IV contrast showed a 2.9 cm left adrenal nodule, possibly adenoma. Postoperative changes status post fusion in the lumbar spine with the right iliac crest harvested site with bone effusion elements. Infiltration along pericolonic gutter, fat and iliopsoas fat on the right consistent with postoperative edema. No abnormal fluid collection seen. DISCHARGE MEDICATIONS: - bupropion 300 mg by mouth daily - gabapentin 300 mg by mouth three times a day - loratadine 10 mg by mouth daily as needed for allergy - montelukast 10 mg by mouth daily - Zofran 4 mg by mouth every 6 hours as needed for nausea, vomiting. - Percocet 5/325 one tablet by mouth every 6 hours as needed - propranolol 40 mg by mouth daily - simvastatin 40 mg by mouth daily - tizanidine 4 mg by mouth three times a day - Chantix 1 mg by mouth twice a day DISCHARGE INSTRUCTIONS: Discontinue line. Discharge home. Activity as tolerated. Diet as tolerated. Patient should followup with his primary care provider, Sarina Hernandez, in 1-2 weeks. Patient should followup with orthopedic team at the scheduled time. Patient also should followup with primary care provider regarding his left adrenal nodule. DISCHARGE TIME: Greater than 30 minutes. DISCHARGE CONDITION: Fair.
== END 2018-10-27 10:50 | disposition home or self-care (01) ==
LOC: M ED 13:10 → M ED INP 22:02 → M MSPAV 23:40
PROVIDERS: ADMIT Internal Medicine; ATTEND Internal Medicine
DX: R50.82 Postprocedural fever (principal); I10 Essential (primary) hypertension; D72.829 Elevated white blood cell count, unspecified; J12.1 Respiratory syncytial virus pneumonia; F41.9 Anxiety disorder, unspecified; F32.9 Major depressive disorder, single episode, unspecified; K91.30 Postprocedural intestinal obstruction, unspecified as to partial versus complete; Z79.899 Other long term (current) drug therapy; E78.5 Hyperlipidemia, unspecified; Z88.0 Allergy status to penicillin
CPT/HCPCS: 36415; 71045; 71275; 74177; 80048; 80053; 81001; 83605; 85025; 85652; 86140; 87040; 87086; 87486; 87502; 87581; 87633; 87798; 96361; 96374; 96376; 97161; 99285; J2405; Q9967

== ENCOUNTER → 2018-12-07 | Outpatient (CLI) | payer OTHER ==
[~2018-12-07] MED LIST changes: +GABA-843 PO; +ISOVUE-370 76% 100ML VIAL (Q9967) As Ordered ONE; +MONT10TA2 PO
--- NOTE | 2018-12-07 11:42 | REP ---
Clinical: Adrenal mass. Technique: Axial precontrast and contrast enhanced images of the abdomen with coronal and sagittal re-formations. 100 ml Isovue 370 intravenous contrast material administered without complication. Findings: A 2.4 cm left adrenal lesion is identified which based on noncontrast Hounsfield density less than 10 units is diagnostic for benign adenoma. Liver, spleen, pancreas, gallbladder, right adrenal gland and bilateral kidneys are normal. Visualized enteric system is without obstruction or acute inflammatory process. No ascites. No free air. No adenopathy. Atherosclerotic changes to the visualized aorta and vasculature without aneurysm or dissection. Musculoskeletal structures are intact. Lung bases are clear. Impression: 2.4 cm left adrenal lesion consistent with benign adenoma. Electronically Signed by Reggie Reynolds MD 12/07/2018 11:34 A
== END ==
LOC: M RAD 10:34
PROVIDERS: ATTEND Nurse Practitioner Adult Health
DX: E27.8 Other specified disorders of adrenal gland (principal)
CPT/HCPCS: 74170; Q9967

== ENCOUNTER → 2019-02-23 | Outpatient (CLI) | payer OTHER, SELFPAY ==
[~2019-02-23] MED LIST changes: -ISOVUE-370 76% 100ML VIAL (Q9967) As Ordered ONE
[2019-02-23 11:25] LABS: BASO % 0.4 % (0.0-1.0); EOS # 0.2 10^3/uL (0.0-0.50); EOS % 2.5 % (0.0-3.0); HEMATOCRIT 42.5 % (42.0-52.0); HEMOGLOBIN 13.6 g/dl (13.5-17.5); LYMPH # 1.3 10^3/uL (1.5-4.5); LYMPH % 16.5 % (24.0-44.0); MEAN CORPUSCULAR HEMOGLOBIN 28.7 pg (27.0-33.0); MEAN CORPUSCULAR VOLUME 89.7 fl (80.0-96.0); MONO # 0.7 10^3/uL (0.0-0.8); MONO % 9.2 % (0.0-5.0); NEUTROPHILS # 5.5 10^3/uL (1.8-7.7); NEUTROPHILS % 71.1 % (36.0-66.0); PLATELET COUNT, AUTOMATED 253 10^3/uL (150-450); RED BLOOD COUNT 4.74 10^6/uL (4.30-6.10); WHITE BLOOD COUNT 7.7 10^3/uL (4.0-10.0)
[2019-02-23 11:42] LABS: HEMOGLOBIN A1c 5.3 %
[2019-02-23 11:55] LABS: ALBUMIN 3.2 GM/DL (3.2-5.2); ALT/SGPT 24 U/L (12-78); BILIRUBIN,TOTAL 0.3 MG/DL (0.2-1.0); BLOOD UREA NITROGEN 18 MG/DL (7-18); CALCIUM LEVEL 8.3 MG/DL (8.5-10.1); CARBON DIOXIDE LEVEL 30 MEQ/L (21-32); CHLORIDE LEVEL 106 MEQ/L (98-107); CHOLESTEROL LEVEL 221 MG/DL (<200); CHOLESTEROL RISK RATIO 7.366 (<5); CREATININE FOR GFR 1.02 MG/DL (0.70-1.30); FREE T4 1.14 NG/DL (0.76-1.46); GLOMERULAR FILTRATION RATE > 60.0 (>56); GLUCOSE, FASTING 146 MG/DL (70-100); HDL CHOLESTEROL 30 MG/DL (>40); MAGNESIUM LEVEL 2.2 MG/DL (1.8-2.4); NON-HDL-C 191 MG/DL; POTASSIUM SERUM 4.2 MEQ/L (3.5-5.1); SODIUM LEVEL 140 MEQ/L (136-145); TOTAL PROTEIN 6.7 GM/DL (6.4-8.2); TRIGLYCERIDES LEVEL 407 MG/DL (<150)
== END ==
LOC: M LAB 10:40
PROVIDERS: ATTEND Nurse Practitioner Adult Health
DX: E78.00 Pure hypercholesterolemia, unspecified (principal); E27.8 Other specified disorders of adrenal gland; Z79.899 Other long term (current) drug therapy; E83.42 Hypomagnesemia

== ENCOUNTER → 2020-05-19 | Outpatient (CLI) | payer OTHER ==
[~2020-05-19] MED LIST changes: -BUPR300T34 PO; +BUPR300T92 PO; -MONT10TA2 PO; +MONT10TA4 PO; -SIMV40TA2 PO; +SIMV40TA20 PO
--- NOTE | 2020-07-02 10:34 | REP ---
TRIPLE PHASE BONE SCAN OF THE LUMBOSACRAL SPINE: HISTORY: Spondylolisthesis lumbosacral junction. TECHNIQUE: Following the intravenous administration of 21.8 mCi technetium-99m MDP, patient's lumbosacral region is imaged in the anterior and posterior projections in the flow phase. Immediate blood pool and 2.5 hour delayed images are performed in multiple projections. FINDINGS: There is no abnormal blood flow or blood pooling. Delayed images show very mild increased delayed uptake in the pedicles of L5 at the site of pedicle screws status post surgical fusion posteriorly at L5 and S1. No other abnormal uptake is seen. IMPRESSION: Very mild increased uptake in the pedicles of L5 bilaterally symmetrically at the site of bilateral L5 pedicle screws status post posterior fusion at L5-S1. No other significant findings. MTDD
== END ==
LOC: M RAD 10:30
PROVIDERS: ATTEND Orthopaedic Surgery
DX: M43.17 Spondylolisthesis, lumbosacral region (principal); M43.27 Fusion of spine, lumbosacral region

== ENCOUNTER → 2020-07-09 | Outpatient (CLI) | payer OTHER ==
[~2020-07-09] MED LIST changes: +GASTROGRAFIN SOLUTION 30ML (Q9963) As Ordered ONE; +ISOVUE-370 76% 100ML VIAL As Ordered ONE
--- NOTE | 2020-07-15 14:11 | REP ---
CT ABDOMEN WITHOUT AND WITH INTRAVENOUS (IV) CONTRAST: WITH ORAL CONTRAST HISTORY: Other specified disorder of adrenal gland. Neoplasm of uncertain behavior of the left adrenal gland. Hypoglycemia. CT CONTRAST DOSE: 100 mL of intravenous Isovue-370. COMPARISON: CT studies are reviewed the most recent of which is from 12/07/2018. CT FINDINGS: Precontrast imaging shows a low density oval-shaped 2.7 cm left adrenal nodule. Mean Hounsfield unit on the noncontrast study is -2.52. This is consistent with intralesional fat and a benign adrenal adenoma. It measured 2.4 cm previously. The right adrenal gland is normal. Postcontrast images show enhancement predominantly peripheral to the nodule. No upper abdominal adenopathy is appreciated. The liver and spleen are normal in size and homogeneous in texture. No abnormalities noted in the gallbladder or the pancreas. The kidneys enhance symmetrically and are morphologically intact. Small and large intestinal bowel loops are normal as visualized. The patient is status post lumbosacral spine fusion and there is a spondylolisthesis at L5-S1. There is heavy vascular calcification in the aorta. 75% stenosis left common iliac artery origin is seen. This is unchanged in appearance. There is considerable narrowing in the proximal celiac axis as well. Vascular calcification is seen in the proximal renal arteries bilaterally and some narrowing is suspected on the right. IMPRESSION: Findings consistent with benign left adrenal adenoma. 2.7 cm in greatest diameter. Status post L5-S1 fusion with spondylolisthesis. Extensive atherosclerotic vascular calcification. Question substantial stenosis left common iliac artery. MTDD
== END ==
LOC: M RAD 09:29
PROVIDERS: ATTEND Nurse Practitioner Adult Health
DX: E27.8 Other specified disorders of adrenal gland (principal); D44.12 Neoplasm of uncertain behavior of left adrenal gland; E16.1 Other hypoglycemia; Z98.1 Arthrodesis status
CPT/HCPCS: 74170; Q9963; Q9967

== ENCOUNTER → 2020-08-14 | Outpatient (CLI) | payer OTHER ==
[~2020-08-14] MED LIST changes: -GASTROGRAFIN SOLUTION 30ML (Q9963) As Ordered ONE; -ISOVUE-370 76% 100ML VIAL As Ordered ONE
--- NOTE | 2020-08-14 11:11 | REP ---
INDICATION: PAIN IN LEG/ATHERO OF RENAL ARTERY/FILE ROOM; EVAL FOR ELVA. COMPARISON: None. TECHNIQUE: Real-time sonographic evaluation of the kidneys is performed. Duplex Doppler interrogation of the renal arteries is performed bilaterally. FINDINGS: Renal cortical echogenicity pattern is normal bilaterally and contours are smooth. There is no evidence of hydronephrosis, cyst, mass, or calculus in either kidney. The right kidney measures 11.2 x 5.2 x 4.9 cm. Left renal dimensions are 11.5 x 6.0 x 5.2 cm. The urinary bladder is unremarkable. The peak systolic velocity of the abdominal aorta at the level of the renal arteries is 106 centimeters/second. Peak systolic velocity at the origin of the main right renal artery is elevated at 332 centimeters/second, with turbulent flow distal to that, and tardus parvus waveforms of the intrarenal arterial structures. Renal to aortic ratio is 3.1. Resistive indices right kidney range between 0.53 and 0.61. Acceleration times range between 0.072 and 0.074. On the left peak systolic velocity of the main left renal artery is 129 centimeters/second, renal to aortic ratio 1.21. Resistive indices left kidney range between 0.59 and 0.65. Acceleration times range between 0.038 and 0.042. IMPRESSION: There is significant stenosis at the origin of the main right renal artery. <Electronically signed by Tomy Ordonez > 08/14/20 [id number]
--- NOTE | 2020-08-14 11:17 | REP ---
INDICATION: PAIN IN LEG/ATHERO OF RENAL ARTERY/FILE ROOM COMPARISON: None. TECHNIQUE: Real time ordonez scale and Duplex Doppler evaluation of the bilateral lower extremity arterial vasculature using linear high frequency transducer. FINDINGS: Ordonez scale and duplex doppler images demonstrate diffuse triphasic waveforms bilaterally. Very minimal plaque is scattered throughout the arterial structures of the bilateral lower extremities. MARITZA on the right is 1.0 and left 0.94. No hemodynamically significant stenosis is seen bilaterally. Peak systolic velocities (cm/sec) Common femoral artery: Right 154; Left 138 Profunda femoris: Right 90; Left 100 SFA (proximal): Right 122; Left 114 SFA (mid): Right 125; Left 138 SFA (distal): Right 83; Left 100 Popliteal artery: Right 49; Left 51 RAFAELA (prox.): Right 69; Left 62 Tibioperoneal trunk: Right 56; Left 60 ELECTRIC SIGN ASSEMBLER (prox.): Right 46; Left 45 ELECTRIC SIGN ASSEMBLER (distal): Right through 59; Left 67 RAFAELA (distal): Right 74; Left 62 IMPRESSION: Minimal scattered plaque the bilaterally, no focal occlusion or stenosis. <Electronically signed by Tomy Ordonez > 08/14/20 [id number]
== END ==
LOC: M RAD 08:59
PROVIDERS: ATTEND Physician Assistant
DX: I70.1 Atherosclerosis of renal artery (principal)

== ENCOUNTER → 2020-11-25 | Outpatient (CLI) | payer OTHER ==
[~2020-11-25] MED LIST changes: +CLEO150C PO; +CLOP75TA2 PO; +CLOPIDOGREL 75 MG TAB As Ordered ONE; +CLOPIDOGREL 75 MG TAB PO ONE; +GABA-282 PO; -GABA-843 PO; +ISOVUE-300 61% 50ML VIAL As Ordered ONE; +LIDOCAINE 1% MDV 20ML VIAL As Ordered ONE; +MIDAZOLAM INJ 2MG/2ML VIAL (J2250 PER 1MG) As Ordered ONE; +MONT10TA10 PO; -MONT10TA4 PO; +fentaNYL 100 MCG/2 ML INJECTION (J3010) As Ordered ONE
[2020-11-25 09:46] LABS: HEMATOCRIT 43.2 % (42.0-52.0); HEMOGLOBIN 14.1 g/dl (13.5-17.5); MEAN CORPUSCULAR HEMOGLOBIN 30.3 pg (27.0-33.0); MEAN CORPUSCULAR HGB CONC 32.6 g/dl (32.0-36.5); MEAN CORPUSCULAR VOLUME 92.7 fl (80.0-96.0); PLATELET COUNT, AUTOMATED 216 10^3/uL (150-450); RED BLOOD COUNT 4.66 10^6/uL (4.30-6.10); WHITE BLOOD COUNT 6.1 10^3/uL (4.0-10.0)
[2020-11-25 10:07] LABS: BLOOD UREA NITROGEN 23 MG/DL (7-18); CALCIUM LEVEL 9.1 MG/DL (8.5-10.1); CARBON DIOXIDE LEVEL 28 MEQ/L (21-32); CHLORIDE LEVEL 105 MEQ/L (98-107); CREATININE FOR GFR 1.05 MG/DL (0.70-1.30); GLOMERULAR FILTRATION RATE > 60.0 (>56); GLUCOSE, FASTING 86 MG/DL (70-100); POTASSIUM SERUM 3.7 MEQ/L (3.5-5.1); SODIUM LEVEL 140 MEQ/L (136-145)
--- NOTE | 2020-11-25 11:08 | ROOPDOC ---
[facility] Report Of Operation Report of Operation DATE OF PROCEDURE: 11/25/20 PREPROCEDURE DIAGNOSES: Hypertension; Renal artery stenosis POSTPROCEDURE DIAGNOSES: Same PROCEDURE: 1. Ultrasound guided access right femoral artery 2. Aortorenal arteriogram 3. Selection right renal artery with right renal arteriogram 4. Balloon expandable stent placement origin right renal artery, 6 x 18 Express SD renal stent 5. Completion arteriogram 6. Mynx closure right common femoral artery SURGEON: Abeba Zamarripa MD ANESTHESIA: Local anesthesia 8 mL lidocaine. Moderate intravenous conscious sedation was supervised by Dr. Zamarripa. The patient was independently monitored by registered nurse assigned to the Department of radiology using automated blood pressure, EKG, and pulse oximetry. The detailed sedation record is permanently stored in the hospital information system. The following is a brief sedation record: Start time 10:09, stop time 10:44, Versed 1 mg IV, fentanyl 50 g IV, heparin 3000 units IV. INDICATION FOR PROCEDURE: This is a very pleasant 55-year-old gentleman with significant poorly controlled hypertension despite being on large quantities of antihypertensives, elevated renal artery velocities and elevated renal aortic r atio on duplex ultrasound suggesting greater than 60% stenosis, and CTA findings of significant right renal artery origin stenosis. The patient has normal creatinine and kidney size at this time. Risks benefits and alternatives to an aortorenal arteriogram and potential intervention were explained to the patient. Informed consent was obtained. INTERPRETATION: 1. The aorta is widely patent at the origin of both renal arteries. Distal to this, there is some plaque and ectasia, but no significant stenosis noted. 2. Left renal artery has some mild calcification at the origin but is widely patent with no significant stenosis noted. 3. Right renal artery has significant plaque and calcification at the origin with greater than 60% stenosis, mild poststenotic dilatation, with widely patent mid distal renal artery. No significant mid or distal renal artery stenosis was noted on selected arteriogram. 4. After stent placement, no residual stenosis is noted in the right renal artery and there is widely patent flow. No extravasation, embolization, or dissection are noted post stenting. REPORT OF OPERATION: The patient was brought to the angiographic suite in stable condition. His bilateral groins were prepped and draped in sterile fashion. A timeout was performed. Sedation was administered without consultation. Local anesthesia was a oven stripper to skin and subcutaneous tissue over the right femoral artery. A microneedle was used to access the artery under ultrasound guidance. A wire was passed through this access and the needle was removed. A 4 Macedonian sheath was placed and flushed with saline. A Glidewire and flushing catheter were advanced into the aorta. An aortorenal arteriogram was performed. Please see interpretation above. We then utilized a Glidewire and the catheter to access the right renal artery. A right renal selected arteriogram was performed. Please see interpretation above. We then removed the catheter, the sheath, and placed a 6 Macedonian 45 cm angled destination sheath into the right renal artery. We then removed the wire and the inner cannula and flushed the sheath carefully. We then advanced an O18 Glidewire advantage into the right renal artery and advanced a 6 x 18 express renal stent over the wire. We retracted the sheath into the aorta and confirmed placement of the stent with several quick contrast injections through the sheath at the origin of the renal artery to make sure that the stent was slightly into the aorta to allow maximal expansion of the origin of the right renal artery. The stent was deployed under fluoroscopic guidance. We retracted the balloon slightly into the aorta and it is secondary inflation to flare out the stent at the aorta. We then removed the balloon and completion arteriogram showed widely patent flow through the right renal artery with no residual stenosis, no dissection, no extravasation, no embolization. Was excellent flow through the right kidney. We flushed with heparinized saline. The sheath was exchanged over an O35 wire for a short 6 Macedonian sheath and a Mynx closure device was deployed with good hemostasis. Pressure was held for 10 minutes and the patient was taken to recovery in stable condition. He tolerated the procedure and the sedation well. ESTIMATED BLOOD LOSS: Approximately 5 mL. COMPLICATIONS: None. PLAN: We will see the patient back in 1 week to check his groin access site. He should see his primary care doctor this week or next week to evaluate his blood pressure and see if any improvements are noted, and if any changes need to be made to his antihypertensive regimen. I did explain to the patient that there are many reasons he could be experiencing increased hypertension, not all related to his renal artery. He understands this. We would like him to be on Plavix for 60 days post stent placement. He can resume his home diet and medications. We appreciate the opportunity to participate in the care of this patient. ABEBA ZAMARRIPA MD Nov 25, 2020 11:08
[2020-11-25 15:00] VITALS: BP 123/68
== END ==
LOC: M IRPRO 09:01
PROVIDERS: ATTEND Surgery Vascular Surgery
DX: I70.1 Atherosclerosis of renal artery (principal); I10 Essential (primary) hypertension
CPT/HCPCS: 36245; 37246; 80048; 85027; 99152; 99153; C1729; C1760; C1769; C1876; C1894; J1644; J2250; J3010; Q9967

== ENCOUNTER 2020-11-28 23:54 | Emergency (ER) | payer OTHER ==
[~2020-11-28] VITALS: Ht 167.6 cm; Wt 79.9 kg
[~2020-11-28 23:54] MED LIST changes: -CLEO150C PO; -CLOPIDOGREL 75 MG TAB As Ordered ONE; -CLOPIDOGREL 75 MG TAB PO ONE; -ISOVUE-300 61% 50ML VIAL As Ordered ONE; -LIDOCAINE 1% MDV 20ML VIAL As Ordered ONE; -MIDAZOLAM INJ 2MG/2ML VIAL (J2250 PER 1MG) As Ordered ONE; -fentaNYL 100 MCG/2 ML INJECTION (J3010) As Ordered ONE
--- OUTSIDE RECORDS SUMMARY | 2020-11-28 23:59 | CCD | Continuity of Care Document ---
Author Author Mack HERNANDEZ Organization Unknown Address [address] [place] [address] Phone [phone] Care Team Providers Care Bale Sewer Name Role Phone Sarina Hernandez AUTM [phone] Problems Active Problems Provider Date Disorder of magnesium metabolism [facility] O nset: 04/22/2020 Pure hypercholesterolemia [facility] Onset: 0 04/22/2020 Taking medication [facility] Onset: 020 Renal function tests abnormal [facility] Onse t: 04/22/2020 Screening for malignant neoplasm of colon REUBEN Lang , PNP Onset: 04/22/2020 Degeneration of lumbar intervertebral disc JESS Lang C, PNP Onset: 04/22/2020 Spondylolisthesis L5/S1 level REUBEN Lang, PNP Onset: 04/22/2020 Lumbar radiculopathy REUBEN Lang, PNP Onset: 04/22/20 20 Disorder of adrenal gland REUBEN Lang, PNP Onset: Ex-smoker REUBEN Lang, PNP Onset: 0 Other allergy, subsequent encounter REUBEN Lang, PNP Onset: 04/22/2020 Essential hypertension Onset: 08/04/2020 Social History Type Date Description Comments Sex Unknown Tobacco Use Start: Unknown Current Cigarette Smoker 1/2 Pac k Daily Tobacco Use Start: Unknown Never Smoked Cigars Tobacco Use Start: Unknown Never Smoked A Pipe Tobacco Use Start: Unknown Never Used Smokeless Tobacco ETOH Use Rarely consumes alcohol Recreational Drug Use Denies Drug Use Tobacco Use Start: Unknown Patient is a current smoker, smo kes every day Allergies, Adverse Reactions, Alerts Active Allergies Reaction Severity Comments Date Penicillin 08/07/2018 Wasp Venoms Difficulty breathing, Difficulty swallowing, Hives 07/21/2020 Medications Active Medications SIG Qnty Indications Ordering Provide r Date Amlodipine Besylate 5mg Tablets 1 by mouth every night 30tabs REUBEN Lang, PNP 09/12/20 20 Epinephrine 0.3mg/0. 3ML Solution Auto-Inject inject 1 injection as needed for bee sting 1units REUBEN Lang, PNP 07/21/2020 Losartan Potassium 50mg Tablets 1 by mouth every day 30tabs REUBEN Lang, PNP 06/19/20 20 [facility] Blood Glucose Meter W/Device K it please provide glucometer that will be covered by insurance for twice a day blood sugar test dx: E16.2 1units REUBEN Lang, P LEAD MATERIAL HANDLER 06/19/2020 Blood Glucose Test Strips Premium Strips glucose test strips compatible w/ meter, covered by insurance for twice day bs test dx: e16.2 60units REUBEN Lang, PREM 06/19/20 20 Lancets Micro Thin 33G Thin 33G Mi sc lancets that will be covered by insurance and compatible with meter for bs test 2 x day dx: e16.2 60units REUBEN Lang, PNP 2019 Bupropion Hydrochloride ER (XL) 300mg Tablets ER 24HR Take One Tablet By Mouth Every Morning 30tabs REUBEN Lang, PNP 01/15/2019 Tizanidine HCL 4mg Tablets 1 tab by mouth three times a day 30tabs Unknown Simvastatin 40mg Tablets Take One Tablet By Mouth Every Day 30tabs REUBEN Lang, PNP Meloxicam 15mg Tablets Take One Tablet By Mouth Once Daily With Food Or Milk 30tabs Caitlin Lang, PNP Propranolol HCL 40mg Tablets Take One And One-Half Tablets By Mouth Every Day 45tabs REUBEN Lang, PNP Gabapentin 300mg Capsules 1 tab by mouth three times a day as needed 90caps REUBEN Lang, PNP Immunizations CPT Code Status Date Vaccine Lot # [id number] Given 10/16/2019 Influenza (>= 6 Months) P.F. Vaccine [id number] Vital Signs Date Vital Result Comment 10/21/2020 12:59pm BP Systolic 124 mmHg BP Diastolic 72 mmHg Heart Rate 78 /min Body Temperature 97.2 F Respiratory Rate 18 /min O2 % BldC Oximetry 97 % Weight 174.12 lb Weight 78.983 kg Height 66 inches 5'6" BMI (Body Mass Index) 28.1 kg/m2 BSA (Body Surface Area) 1.89 m2 07/21/2020 12:58pm BP Systolic 126 mmHg BP Diastolic 80 mmHg Heart Rate 84 /min Body Temperature 98.2 F Respiratory Rate 18 /min O2 % BldC Oximetry 98 % Weight 169.38 lb Weight 76.829 kg Height 66 inches 5'6" BMI (Body Mass Index) 27.3 kg/m2 BSA (Body Surface Area) 1.86 m2 Results Test Acquired Date Facility Test Result H/L Range Note CBC W/Automated Diff 10/14/2020 [facility] CBC W/Automated Diff (SEE NOTE) 1, 2 WBC 6.4 10^3/uL 4.2 - 11.0 RBC 4.40 10^6/uL Low 4.50 - 6.30 Hemoglobin 13.5 g/dL Low 14.0 - 16.0 Hematocrit 42.1 % 41.0 - 51.0 MCV 95.7 fL High 80.0 - 94.0 MCH 30.7 pg 27.0 - 34.0 MCHC 32.1 g/dL 31.0 - 36.0 RDW 13.2 % 11.5 - 14.8 Platelets 243 10^3/uL 150 - 450 MPV 11.0 fL High 7.4 - 10.4 Neut 60.6 % 37.0 - 80.0 Lymph 23.1 % Low 25.0 - 40.0 [place] 13.0 % High 3.0 - 8.0 Eos 2.2 % 0.0 - 7.0 Baso 0.6 % 0.0 - 2.0 %Ig 0.5 % High 0.0 - 0.0 %NRBC 0.0 % 0.0 - 0.0 #Neut 3.88 10^3/uL 2.00 - 6.90 #Lymph 1.48 10^3/uL 0.60 - 3.40 #[place] 0.83 10^3/uL 0.00 - 0.90 #Eos 0.14 10^3/uL 0.00 - 0.70 #Baso 0.04 10^3/uL 0.00 - 0.20 #Ig 0.03 10^3/uL 0.00 - 0.10 #NRBC 0.00 10^3/uL 0.00 - 0.00 Manual Diff NOT INDICATED RBC Morph NOT INDICATED Comprehensive Metabolic Panel 10/14/2020 [facility] Metabo (SEE NOTE) 3 Sodium 139 mEq/L 134 - 153 Potassium 4.1 mEq/L 3.6 - 5.0 Chloride 103 mEq/L 98 - 107 Co2 27 mEq/L 22 - 30 Glucose 94 mg/dL 65 - 110 BUN 21 mg/dL 7 - 21 Creatinine 0.9 mg/dL 0.7 - 1.5 BUN/Creat 23 8 - 27 Total Protein 5.9 g/dL Low 6.3 - 8.2 Albumin 4.2 g/dL 3.9 - 5.0 Globulin 1.7 GM/DL Low 2.4 - 3.2 A/G Ratio 2.5 High 0.8 - 2.0 Calcium 9.0 mg/dL 8.4 - 10.2 Total Bili <0.7 mg/dL 0.2 - 1.3 Alkaline Phos 104 U/L 38 - 126 Sgot/Ast 23 U/L 5 - 40 SGPT/Alt 22 U/L 7 - 56 Anion Gap 9.0 mmol/L 8.0 - 16.0 Age 55 yrs Non-Aa GFR >60 mL/min Afr Amer GFR >60 mL/min 4 Laboratory test finding 10/14/2020 [facility] Hgba1c 5.3 % 4.4 - 6.1 5 Cve Panel 10/14/2020 [facility] Cve Panel (SEE NOTE) 6 Cholesterol 201 mg/dL High 131 - 200 Triglycerides 180 mg/dL High 35 - 160 HDL 39 mg/dL 29 - 86 LDL 123 mg/dL 65 - 175 Risk Factor 5.2 High 3.4 - 4.9 LDL/HDL 3.15 1.00 - 3.55 7 Laboratory test finding 10/14/2020 [facility] TSH Highly Sensitive 2.86 uIU/mL 0.47 - 5.01 Lyme Disease Antibodies 10/14/2020 [facility] Lyme IgG/IgM Ab <0.91 ISR 0.00-0.90 8 Lyme Disease Ab, Quant,IgM <0.80 index 0.00-0.79 9 Laboratory test finding 10/14/2020 [facility] PSA - Diagnostic 0.58 ng/mL 0.00 - 4.00 10 Laboratory test finding 06/19/2020 In Office Inhouse Fingerstick Glucose 100 1 Is patient fasting? N 2 COMPLETE BLOOD COUNT 3 COMPREHENSIVE METABOLIC PANE L 4 Male GFR Interprentation 20-49 yrs >60 mL/min Normal 50-59 yrs >56 mL/min Normal 60-69 yrs >49 mL/min Normal 70-79yrs >42 mL/min Normal 80 and above >35 mL/min Normal Female GFR Interpretation 20-39 yrs >60 mL/min Normal 40-49 yrs >58 mL/min Normal 50-59 yrs >51 mL/min Normal 60-69 yrs >45 mL/min Normal 70-79 yrs >39 mL/min Normal 80 and above >32 mL/min Normal 5 {A1] {HB] 6 LIPID PANEL 7 CVE RISK CHOL/HDL LDL/HDL MEN: 1/2 AVERAGE 3.43 1.00 AVERAGE 4.97 3.55 2X AVERAGE 9.55 6.25 3X AVERAGE 23.99 7.99 WOMEN: 1/2 AVERAGE 3.27 1.47 AVERAGE 4.44 3.22 2X AVERAGE 7.05 5.03 3X AVERAGE 11.04 6.14 8 Negative <0.91 Equivocal 0.91 - 1.09 Positive >1.09 9 Negative <0.80 Equivocal 0.80 - 1.19 Positive >1.19 IgM levels may peak at 3-6 weeks post infection, then gradually decline. 10 \\BLDo\\PSA INTERPRETATION\\BLD x\\ The PSA assay should not be used alone for a screening test or diagnosis for presence or absence of malignant disease. Predictions of disease recurrence should not be based solely on values obtained from serial patient serum values. The PSA result was determined by "[employer]", on the Cathryn ERIC 6000. Values obtained with different assay methods or kits cannot be used interchangeably. Procedures Date Code Description Status 04/22/2020 14803 Admin Patient Focused Health Ris k Assessment Instrument Completed Medical Devices Description No Information Available Encounters Description No Information Available Assessments Date Code Description Provider 10/21/2020 E78.00 Pure hypercholesterolemia, unspe cified Sarina Hernandez, SANTOS-BC, PNP 10/21/2020 I10 Essential (primary) hypertension RADU LangBC, PNP 10/21/2020 Z79.899 Other halfway (current) drug t herapy REUBEN Lang, PNP 10/14/[address] [facility] 10/14/2020 E78.00 Pure hypercholesterolemia, unspe cified [facility] 10/14/2020 Z79.899 Other halfway (current) drug t herapy [facility] 10/14/2020 R94.4 Abnormal results of kidney funct ion studies [facility] 10/14/2020 W57.xxxA Bitten or stung by n onvenomous insect and other nonvenomous arthropods, initial encounter [facility] 07/21/2020 I10 Essential (primary) hypertension RADU LangBC, PNP 07/21/2020 E16.2 Hypoglycemia, unspecified RADU CastorenaBC, PNP 07/21/2020 E27.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 REUBEN Lang, PNP 07/21/2020 E78.00 Pure hypercholesterolemia, unspe cified REUBEN Lang, PNP 07/21/2020 E83.42 Hypomagnesemia RADU Lang, PNP 07/21/2020 R94.4 Abnormal results of kidney funct ion studies REUBEN Lang, PNP 07/21/2020 Z79.899 Other intermission coordinator (current) drug t herapy REUBEN Lang, PNP 07/21/2020 I70.0 Atherosclerosis of aorta RADU LiangBC, PNP 06/19/2020 I10 Essential (primary) hypertension RADU LangBC, PNP 06/19/2020 E16.2 Hypoglycemia, unspecified RADU CastorenaBC, PNP 06/19/2020 E78.00 Pure hypercholesterolemia, unspe cified RADU LangBC, PNP 06/19/2020 Z79.899 Other halfway (current) drug t herapy REUBEN Lang, PNP 04/22/2020 E78.00 Pure hypercholesterolemia, unspe cified REUBEN Lang, PNP 04/22/2020 I10 Essential (primary) hypertension REUBEN Lang, PNP 04/22/2020 Z79.899 Other halfway (current) drug t herapy REUBEN Lang, PREM 04/22/2020 R94.4 Abnormal results of kidney funct ion studies REUBEN Lang, PREM 04/22/2020 E83.42 Hypomagnesemia RADU Lang, PNP Plan of Treatment Future Appointment(s):* 12/11/2020 9:30 am - [facility] at [facility] * 12/17/2020 1:00 pm - REUBEN Lang, PNP at [facility] 10/21/2020 - REUBEN Lang, PREM* E78.00 Pure hypercholesterolemia, unspecified* Comments:* Labs reviewed with the patient in detail.Lipid panel showed:CHOL high at 201.TRG high at 180.HDL at 39.LDL at 123.He will continue with his current regimen.He was encouraged to maintain a low cholesterol diet and a regular exercise regimen.We will continue to monitor. * I10 Essential (primary) hypertension* Comments:* JNC8 Guidelines - Pt white Male < 60 To continue on the prescribed CCB, Beta Jd and ARB. BP is at goal, 124/72. Continue current treatment and monitor. He will benefit from maintaining a low sodium diet. CT Abd " substantial stenosis left common iliac artery."To continue to follow up with Dr. Coronado (Vascular) * Z79.899 Other intermission coordinator (current) drug therapy* Comments:* Patient to continue to follow the current plan of care and to look for any new or worsening symptoms. We will continue to monitor through periodic blood work. * Follow up:* FU in 3 months, fasting labs first. Functional Status Description No Information Available Mental Status Description No Information Available Referrals Refer to Reason for Referral Status Appt Date Dr Zamarripa, Please see t his 54 yo man who recently had a CT Abd w/o followed by w/ con for update on his Left adrenal nodule. He was incidentally found to have, "There is heavy vascular calcification in the aorta. 75% stenosis left common iliac artery origin is seen. This is unchanged in appearance. There is considerable narrowing in the proximal celiac axis as well. Vascular calcification is seen in the proximal renal arteries bilaterally and some narrowing is suspected on the right." Requesting referral to your office for further evaluation and treatment as needed. Closed 020
--- OUTSIDE RECORDS SUMMARY | 2020-11-28 23:59 | CCD | Continuity of Care Document ---
Author Author [facility] Organization Unknown Address [facility] [address] [place] [address] Phone [phone] Care Team Providers Care Maintenance And Repair Worker Name Role Phone Sarina Hernandez AUTM [phone] Problems Active Problems Provider Date Disorder of magnesium metabolism [facility] O nset: 04/22/2020 Pure hypercholesterolemia [facility] Onset: 0 04/22/2020 Taking medication [facility] Onset: 020 [facility] 04/[facility]/2020 Screening for malignant neoplasm of colon REUBEN Lang , PNP Onset: 04/22/2020 Degeneration of lumbar intervertebral disc JESS Lang C, PNP Onset: 04/22/2020 Spondylolisthesis L5/S1 level REUBEN Lang PNP Onset: 04/22/2020 Lumbar radiculopathy REUBEN Lang, PREM Onset: 04/22/20 20 Disorder of adrenal gland REUBEN Lang PNP Onset: Ex-smoker REUBEN Lang, PREM Onset: 0 Other allergy, subsequent encounter REUBEN Lang PNP Onset: 04/22/2020 Essential hypertension Onset: 08/04/2020 [...] test dx: E16.2 1units REUBEN Lang, P SINGING WAITER OR WAITRESS 06/19/2020 Blood Glucose Test Strips Premium Strips [...] CPT Code Status Date Vaccine Lot # [id number] Given 10/16/2019 Influenza (>= 6 Months) P.F. [...] H/L Range Note CBC W/Automated Diff 10/14/2020 [facility] CBC W/Automated Diff (SEE NOTE) 1, 2 [...] Lymph 23.1 % Low 25.0 - 40.0 [place] 13.0 % High 3.0 - 8.0 Eos 2.2 % 0.0 - 7.0 Baso 0.6 % 0.0 - 2.0 %Ig 0.5 % High 0.0 - 0.0 %NRBC 0.0 % 0.0 - 0.0 #Neut 3.88 10^3/uL 2.00 - 6.90 #Lymph 1.48 10^3/uL 0.60 - 3.40 #[place] 0.83 10^3/uL 0.00 - 0.90 #Eos 0.14 10^3/uL 0.00 - 0.70 #Baso 0.04 10^3/uL 0.00 - 0.20 #Ig 0.03 10^3/uL 0.00 - 0.10 #NRBC 0.00 10^3/uL 0.00 - 0.00 Manual Diff NOT INDICATED RBC Morph NOT INDICATED Comprehensive Metabolic Panel 10/14/2020 [facility] Comprehensive Metabo (SEE NOTE) 3 Sodium 139 [...] >60 mL/min 4 Laboratory test finding 10/14/2020 [facility] Hgba1c 5.3 % 4.4 - 6.1 5 Cve Panel 10/14/2020 [facility] Cve Panel (SEE NOTE) 6 Cholesterol 201 mg/dL High 131 - 200 Triglycerides 180 mg/dL High 35 - 160 HDL 39 mg/dL 29 - 86 LDL 123 mg/dL 65 - 175 Risk Factor 5.2 High 3.4 - 4.9 LDL/HDL 3.15 1.00 - 3.55 7 Laboratory test finding 10/14/2020 [facility] TSH Highly Sensitive 2.86 uIU/mL 0.47 - 5.01 Lyme Disease Antibodies 10/14/2020 [facility] Lyme IgG/IgM Ab <0.91 ISR 0.00-0.90 8 Lyme Disease Ab, Quant,IgM <0.80 index 0.00-0.79 9 Laboratory test finding 10/14/2020 [facility] l PSA - Diagnostic 0.58 ng/mL 0.00 - [...] interchangeably. Procedures Date Code Description Status 04/22/2020 10503 Admin Patient Focused Health Ris k Assessment Instrument Completed Medical Devices Description No Information Available Encounters Description No Information Available Assessments Date Code Description Provider 10/21/2020 E78.00 Pure hypercholesterolemia, unspe cified Sarina Hernandez, ANP-BC, PNP 10/21/2020 I10 Essential (primary) hypertension REUBEN Lang, PNP 10/21/2020 Z79.899 Other long term care phlebotomist (current) drug t herapy REUBEN Lang, PNP 10/14/2020 E83.42 Hypomagnesemia [facility] 10/14/2020 E78.00 Pure hypercholesterolemia, unspe cified [facility] 10/14/2020 Z79.899 Other long term care phlebotomist (current) drug t herapy [facility] 10/14/2020 R94.4 Abnormal results of kidney funct ion studies [facility] 10/14/2020 W57.xxxA Bitten or stung by n onvenomous insect and other nonvenomous arthropods, initial encounter [facility] 07/21/2020 I10 Essential (primary) hypertension RADU LangBC, PNP 07/21/2020 E16.2 Hypoglycemia, unspecified RADU CastorenaBC, PNP 07/21/2020 E27.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 REUBEN Lang, PNP 07/21/2020 E78.00 Pure hypercholesterolemia, unspe cified REUBEN Lang, PNP 07/21/2020 E83.42 Hypomagnesemia RADU Lang, PNP 07/21/2020 R94.4 Abnormal results of kidney funct ion studies REUBEN Lang, PNP 07/21/2020 Z79.899 Other long term care phlebotomist (current) drug t herapy REUBEN Lang, PNP 07/21/2020 I70.0 Atherosclerosis of aorta RADU LiangBC, PNP 06/19/2020 I10 Essential (primary) hypertension RADU LangBC, PNP 06/19/2020 E16.2 Hypoglycemia, unspecified RADU CastorenaBC, PNP 06/19/2020 E78.00 Pure hypercholesterolemia, unspe cified RADU LangBC, PNP 06/19/2020 Z79.899 Other long term care phlebotomist (current) drug t herapy REUBEN Lang, PNP 04/22/2020 E78.00 Pure hypercholesterolemia, unspe cified REUBEN Lang, PNP 04/22/2020 I10 Essential (primary) hypertension REUBEN Lang, PNP 04/22/2020 Z79.899 Other long term care phlebotomist (current) drug t herapy REUBEN Lang, PREM 04/22/2020 R94.4 Abnormal results of kidney funct ion studies REUBEN Lang, PNP 04/22/2020 E83.42 Hypomagnesemia RADU Lang, PNP Plan of Treatment Future Appointment(s):* 12/11/2020 9:30 am - [facility] at [facility] * 12/17/2020 1:00 pm - REUBEN Lang, PNP at [facility] 10/21/2020 - REUBEN Lang, PREM* E78.00 Pure [...] with Dr. Coronado (Vascular) * Z79.899 Other long term care phlebotomist (current) drug therapy* Comments:* Patient to continue [...]
--- OUTSIDE RECORDS SUMMARY | 2020-11-28 23:59 | CCD | Continuity of Care Document ---
Author Author Mack HENSLEY Organization Unknown Address [address], [address] [place] [address] Phone [phone] Care Team Providers Care Cost Accounting Analyst Name Role Phone Sarina Hernandez AUTM [phone] Problems Active Problems Provider Date Essential hypertension MARÍA Ward Onset: 08/04/2020 Social History Type Date Description Comments Sex Unknown ETOH Use Occasionally consumes alcohol Tobacco Use Start: Unknown Smokes 1 Pack A Day X35 YRS Recreational Drug Use Denies Drug Use Smoking Status Reviewed: 09/25/20 Smokes 1 Pack A Day X35 YRS Allergies, Adverse Reactions, Alerts Active Allergies Reaction Severity Comments Date Penicillin V Hives 08/04/2020 Medications Active Medications SIG Qnty Indications Ordering Provide r Date Meloxicam 15mg Tablets Take One Tablet By Mouth Once Daily With Food Or Milk Unknown Gabapentin 300mg Capsules Take One Capsule By Mouth Three Times A Day as Needed Unknown Bupropion Hydrochloride ER (XL) 300mg Tablets ER 24HR Take One Tablet By Mouth Every Morning Un known Propranolol HCL 40mg Tablets Take One And One Half Tablets By Mouth Every Day Unknown Simvastatin 40mg Tablets Take One Tablet By Mouth Every Day Unknown Losartan Potassium 50mg Tablets Take One Tablet By Mouth Every Day Unknown Tizanidine HCL 4mg Tablets Take One Tablet By Mouth Three Times A Day as Needed Maximum Daily Dose 3 Unknown Aspirin [address] one tab by mouth once a day Unknown Amlodipine Besylate 5mg Tablets Take One Tablet By Mouth Every Night Unknown Immunizations Description No Information Available Vital Signs Date Vital Result Comment 09/25/2020 11:16am BP Systolic 130 mmHg BP Diastolic 70 mmHg Height 66 inches 5'6" Weight 170.00 lb BMI (Body Mass Index) 27.4 kg/m2 [place] Body Weight 142 lb Weight 77.112 kg BSA (Body Surface Area) 1.87 m2 09/02/2020 9:55am BP Systolic 153 mmHg BP Diastolic 99 mmHg Height 66 inches 5'6" Weight 175.50 lb BMI (Body Mass Index) 28.3 kg/m2 [place] Body Weight 142 lb Weight 79.607 kg BSA (Body Surface Area) 1.89 m2 Results Test Acquired Date Facility Test Result H/L Range Note Complete Blood Count 11/25/2020 [facility] [address] [place] [address] [id number] [phone] White Blood Count 6.1 10 Normal 4.0-10.0 Red Blood Count 4.66 10 Normal 4.30-6.10 Hemoglobin 14.1 g/dL Normal 13.5-17.5 Hematocrit 43.2 % Normal 42.0-52.0 Mean Corpuscular Volume 92.7 fl Normal 80.0-96.0 Mean Corpuscular Hemoglobin 30.3 pg Normal 27.0-33.0 Mean Corpuscular HGB Conc 32.6 g/dL Normal 32.0-36.5 Red Cell Distribution Width 13.4 % Normal 11.5-14.5 Platelet Count, Automated 216 10 Normal 150-450 Nucleated Red Blood Cell % 0.0 % Normal 0-0 Basic Metabolic Profile 11/25/2020 [facility] Lab [address] [place], [place] [id number] [phone] Glucose, Fasting 86 mg/dL Normal 70-100 Blood Urea Nitrogen 23 mg/dL High 7-18 Creatinine For GFR 1.05 mg/dL Normal 0.70-1.30 Glomerular Filtration Rate > 60.0 Normal >56 1 Sodium Level 140 mEq/L Normal 136-145 Potassium Serum 3.7 mEq/L Normal 3.5-5.1 Chloride Level 105 mEq/L Normal 98-107 Carbon Dioxide Level 28 mEq/L Normal 21-32 Anion Gap 7 mEq/L Low 8-16 Calcium Level 9.1 mg/dL Normal 8.5-10.1 1 Units are mL/min/1.73 m2 Chronic Kidney Disease Staging per NKF: Stage I & II GFR >=60 Normal to Mildly Decreased Stage III GFR 30-59 Moderately Decreased Stage IV GFR 15-29 Severely Decreased Stage V GFR <15 Very Little GFR Left ESRD GFR <15 on CUTTING DEPARTMENT SUPERVISOR Procedures Description No Information Available Medical Devices Description No Information Available Encounters Type Date Location Provider Dx Diagnosis Office Visit 09/25/2020 11:00a [facility] MARÍA Hollins I70.1 Atherosclerosis of renal artery I70.203 Unsp athscl [place] arteries of extremities, bilateral legs F17.210 Nicotine dependence, cigaret quentin, uncomplicated Office Visit 09/02/2020 9:45a [facility] MARÍA Hollins I70.203 Unsp athscl [place] arteries of extremiti es, bilateral legs I70.1 Atherosclerosis of renal art rajni F17.210 Nicotine dependence, cigaret quentin, uncomplicated Office Visit 08/04/2020 1:00p [facility] MARÍA Hollins I70.203 Unsp athscl [place] arteries of extremiti es, bilateral legs I70.1 Atherosclerosis of renal art rajni F17.210 Nicotine dependence, cigaret quentin, uncomplicated Assessments Date Code Description Provider 09/25/2020 I70.1 Atherosclerosis of renal artery MARÍA Ward 09/25/2020 I70.203 Unspecified atherosc lerosis of [place] arteries of extremities, bilateral legs MARÍA Ward 09/25/2020 F17.210 Nicotine dependence, cigarettes, uncomplicated MARÍA Ward 09/02/2020 I70.203 Unspecified atherosc lerosis of [place] arteries of extremities, bilateral legs MARÍA Ward 09/02/2020 I70.1 Atherosclerosis of renal artery MARÍA Ward 09/02/2020 F17.210 Nicotine dependence, cigarettes, uncomplicated MARÍA Ward 08/04/2020 I70.203 Unspecified atherosc lerosis of [place] arteries of extremities, bilateral legs MARÍA Ward 08/04/2020 I70.1 Atherosclerosis of renal artery MARÍA Ward 08/04/2020 F17.210 Nicotine dependence, cigarettes, uncomplicated MARÍA Ward Plan of Treatment Future Appointment(s):* 12/02/2020 9:15 am - MARÍA Ward at [facility] 09/25/2020 - MARÍA Ward* I70.1 Atherosclerosis of renal artery * I70.203 Unspecified atherosclerosis of [place] arteries of extremities, bilateral legs * F17.210 Nicotine dependence, cigarettes, uncomplicated Functional Status Description No Information Available Mental Status Description No Information Available Referrals Refer to Dr Reason for Referral Status Appt Date Emily Hensley P.A. CALCIFICATION, STENOSIS Closed 08/04/2020 [address], [address] [place] [address] [place] [address] [phone]
--- OUTSIDE RECORDS SUMMARY | 2020-11-28 23:59 | CCD | Continuity of Care Document ---
Author Author [facility] Organization Unknown Address [facility] [address] [place] [address] Phone [phone] Care Team Providers Care Professor Of Marketing Name Role Phone Sarina Hernandez AUTM [phone] Problems Active Problems Provider Date Disorder of magnesium metabolism [facility] O nset: 04/22/2020 Pure hypercholesterolemia [facility] Onset: 0 04/22/2020 Taking medication [facility] Onset: 020 [facility]2020 Screening for malignant neoplasm [...] test dx: E16.2 1units REUBEN Lang, P LICENSED TAX CONSULTANT 06/19/2020 Blood Glucose Test Strips Premium Strips [...] CPT Code Status Date Vaccine Lot # [id number] Given 10/16/2019 Influenza (>= 6 Months) P.F. Vaccine [id number] Vital Signs Date Vital Result Comment 07/21/2020 12:58pm BP Systolic 126 mmHg BP Diastolic 80 mmHg Heart Rate 84 /min Body Temperature 98.2 F Respiratory Rate 18 /min O2 % BldC Oximetry 98 % Weight 169.38 lb Weight 76.829 kg Height 66 inches 5'6" BMI (Body Mass Index) 27.3 kg/m2 BSA (Body Surface Area) 1.86 m2 06/19/2020 8:53am BP Systolic 152 mmHg BP Diastolic 88 mmHg BP Systolic Sitting 144 mmHg BP Diastolic Sitting 88 mmHg Heart Rate 86 /min Body Temperature 97.6 F Respiratory Rate 18 /min O2 % BldC Oximetry 98 % Weight 167.25 lb Weight 75.865 kg Height 66 inches 5'6" BMI (Body Mass Index) 27.0 kg/m2 BSA (Body Surface Area) 1.85 m2 Results Test Acquired Date Facility Test Result H/L Range Note Laboratory test finding 10/14/2020 [facility] l Hgba1c <pending> Laboratory test finding 10/14/2020 [facility] l TSH Highly Sensitive <pending> Laboratory test finding 06/19/2020 In Office Inhouse Fingerstick Glucose 100 CBC W/Automated Diff 04/15/2020 [facility] CBC W/Automated Diff (SEE NOTE) 1, 2 WBC 7.2 10^3/uL 4.2 - 11.0 RBC 4.56 10^6/uL 4.50 - 6.30 Hemoglobin 14.0 g/dL 14.0 - 16.0 Hematocrit 43.5 % 41.0 - 51.0 MCV 95.4 fL High 80.0 - 94.0 MCH 30.7 pg 27.0 - 34.0 MCHC 32.2 g/dL 31.0 - 36.0 RDW 13.8 % 11.5 - 14.8 Platelets 197 10^3/uL 150 - 450 MPV 11.3 fL High 7.4 - 10.4 Neut 62.5 % 37.0 - 80.0 Lymph 23.6 % Low 25.0 - 40.0 Finney 10.8 % High 3.0 - 8.0 Eos 2.2 % 0.0 - 7.0 Baso 0.6 % 0.0 - 2.0 %Ig 0.3 % High 0.0 - 0.0 %NRBC 0.0 % 0.0 - 0.0 #Neut 4.51 10^3/uL 2.00 - 6.90 #Lymph 1.70 10^3/uL 0.60 - 3.40 #Finney 0.78 10^3/uL 0.00 - 0.90 #Eos 0.16 10^3/uL 0.00 - 0.70 #Baso 0.04 10^3/uL 0.00 - 0.20 #Ig 0.02 10^3/uL 0.00 - 0.10 #NRBC 0.00 10^3/uL 0.00 - 0.00 Manual Diff NOT INDICATED RBC Morph NOT INDICATED Comprehensive Metabolic [facility] 04/15/2020 [facility] Metabo (SEE NOTE) 3 Sodium 140 mEq/L 134 - 153 Potassium 4.6 mEq/L 3.6 - 5.0 Chloride 105 mEq/L 98 - 107 Co2 27 mEq/L 22 - 30 Glucose 97 mg/dL 65 - 110 BUN 18 mg/dL 7 - 21 Creatinine 1.0 mg/dL 0.7 - 1.5 BUN/Creat 18 8 - 27 Total Protein 6.3 g/dL 6.3 - 8.2 Albumin 4.2 g/dL 3.9 - 5.0 Globulin 2.1 GM/DL Low 2.4 - 3.2 A/G Ratio 2.0 0.8 - 2.0 Calcium 9.1 mg/dL 8.4 - 10.2 Total Bili <0.7 mg/dL 0.2 - 1.3 Alkaline Phos 99 U/L 38 - 126 Sgot/Ast 21 U/L 5 - 40 SGPT/Alt 19 U/L 7 - 56 Anion Gap 8.0 mmol/L 8.0 - 16.0 Age 54 yrs Non-Aa GFR >60 mL/min Afr Amer GFR >60 mL/min 4 Laboratory test finding 04/15/2020 [facility] l Hgba1c 5.2 % 4.4 - 6.1 5 Cve Panel 04/15/2020 [facility] Cve Panel (SEE NOTE) 6 Cholesterol 238 mg/dL High 131 - 200 Triglycerides 280 mg/dL High 35 - 160 HDL 34 mg/dL 29 - 86 LDL 141 mg/dL 65 - 175 Risk Factor 7.0 High 3.4 - 4.9 LDL/HDL 4.15 High 1.00 - 3.55 7 Laboratory test finding 04/15/2020 [facility] TSH Highly Sensitive 2.38 uIU/mL 0.47 - 5.01 PSA Free & Total 04/15/2020 [facility] Prostate Specific Ag,Serum 0.5 ng/mL 0.0-4.0 8 Reflex Criteria COMMENT 9 1 Is patient fasting? Y 2 COMPLETE BLOOD COUNT 3 COMPREHENSIVE METABOLIC [...] 7.05 5.03 3X AVERAGE 11.04 6.14 8 Cathryn ECLIA methodology. According to the [employer] [employer], Serum PSA should decrease and remain at undetectable levels after radical prostatectomy. The AUA defines biochemical recurrence as an initial PSA value 0.2 ng/mL or greater followed by a subsequent confirmatory PSA value 0.2 ng/mL or greater. Values obtained with different assay methods or kits cannot be used interchangeably. Results cannot be interpreted as absolute evidence of the presence or absence of malignant disease. 9 The percent free PSA is perf ormed on a reflex basis only when the total PSA is between 4.0 and 10.0 ng/mL. Procedures Date Code Description Status 04/22/2020 09780 Admin Patient Focused Health Ris k Assessment Instrument Completed Medical Devices Description No Information Available Encounters Description No Information Available Assessments Date Code Description Provider 10/14/2020 E83.42 Hypomagnesemia [facility] 10/14/2020 E78.00 Pure hypercholesterolemia, unspe cified [facility] 10/14/2020 Z79.899 Other superintendent container terminal (current) drug t herapy [facility] 10/14/2020 R94.4 Abnormal results of kidney funct ion studies [facility] 07/21/2020 I10 Essential (primary) hypertension SANTOS Lang-BC, PNP 07/21/2020 E16.2 Hypoglycemia, unspecified Sarina S jessa ANP-BC, PNP 07/21/2020 E27.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 RADU LangBC, PNP 07/21/2020 E78.00 Pure hypercholesterolemia, unspe cified Sarina Hernandez ANPAjayBC, PNP 07/21/2020 E83.42 Hypomagnesemia [facility] Lang BC, PNP 07/21/2020 R94.4 Abnormal results of kidney funct ion studies REUBEN Lang, PNP 07/21/2020 Z79.899 Other assisted (current) drug t herapy Sarina Hernandez SANTOSAjayBC, PNP 07/21/2020 I70.0 Atherosclerosis of aorta Sarina worley ANP-BC, PNP 06/19/2020 I10 Essential (primary) hypertension SANTOS Lang-BC, PNP 06/19/2020 E16.2 Hypoglycemia, unspecified Sarina Alton jessa ANP-BC, PNP 06/19/2020 E78.00 Pure hypercholesterolemia, unspe cified Sarina Hernandez SANTOS-BC, PNP 06/19/2020 Z79.899 Other superintendent container terminal (current) drug t herapy Sarina Hernandez SANTOSAjayBC, PNP 04/22/2020 E78.00 Pure hypercholesterolemia, unspe cified Sarina Hernandez SANTOSAjayBC, PNP 04/22/2020 I10 Essential (primary) hypertension RADU LangBC, PNP 04/22/2020 Z79.899 Other assisted (current) drug t herapy Sarina Hernandez ANPAjayBC, PNP 04/22/2020 R94.4 Abnormal results of kidney funct ion studies RADU LangBC, PNP 04/22/2020 E83.42 Hypomagnesemia Sarina Hernandez ANP- BC, PNP 04/15/2020 E83.42 Hypomagnesemia [facility] 04/15/2020 E78.00 Pure hypercholesterolemia, unspe cified [facility] 04/15/2020 Z79.899 Other assisted (current) drug t herapy [facility] 04/15/2020 R94.4 Abnormal results of kidney funct ion studies [facility] Plan of Treatment Future Appointment(s):* 10/21/2020 1:00 pm - REUBEN Lang, PNP at [facility] * 12/11/2020 9:30 am - [facility] at [facility] * 12/17/2020 1:00 pm - REUBEN Lang, PNP at [facility] 07/21/2020 - REUBEN Lang, PNP* I10 Essential (primary) hypertension* Comments:* JNC8 Guidelines - Pt white Male < 60 To continue on the prescribed Beta Jd and ARB. BP is at goal, 126/80. Continue current treatment and monitor. He will benefit from maintaining a low sodium diet. CT Abd " substantial stenosis left common iliac artery."Refer to Dr Coronado (Vascular) * Follow up:* FU 3 months for reassessment and fasting labs first * E16.2 Hypoglycemia, unspecified* Comments:* His blood sugar when checked at home were in the 80s to 105 mg/dL range.To have regular meals at regular interval of time.We will continue to monitor. CT Abdomen with and w/o contrast showed 2.7 cm adenoma on his left adrenal gland which could be affecting hypoglycemia. 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 * E78.00 Pure hypercholesterolemia, unspecified* Comments:* He is due for his labs.He will continue with his current regimen. Discussed dietary changes to improve, avoiding meat and dairy products, avoiding processed foodsDecrease saturated Fats (meat, dairy products and processed foods)Increase Unsaturated fats (fish, plants, nuts, seeds, beans and vegetable oils)Increase aerobic exerciseIncrease water intake Read Labels * E83.42 Hypomagnesemia* Comments:* Patient to have the routine lab work done for further evaluation and management. We will continue to monitor. * R94.4 Abnormal results of kidney function studies* Comments:* He will have the new set of routine labs (PSA) done before his next visit.We will continue to monitor. * Z79.899 Other assisted (current) drug therapy* Comments:* Patient to continue to follow the current plan of care and to look for any new or worsening symptoms. We will continue to monitor through periodic blood work. * Follow up:* FU in 3 months, fasting labs first. * I70.0 Atherosclerosis of aorta Functional Status Description No Information Available Mental Status Description No Information Available Referrals Refer to Dr Reason for Referral Status Appt Date Dr [...]
--- OUTSIDE RECORDS SUMMARY | 2020-11-28 23:59 | CCD | Continuity of Care Document ---
Author Mack Hobson Organization Unknown Address Unknown Phone [phone] Care Team Providers Care Grinder Set Up Operator External Name Role Phone Sarina Hernandez AUTM [phone] Problems Active Problems Provider Date Disorder of magnesium metabolism [facility] O nset: 04/22/2020 Pure hypercholesterolemia [facility] Onset: 0 04/22/2020 Taking medication [facility] Onset: 020 Renal function tests abnormal [facility] Onse t: 04/22/2020 Screening for malignant neoplasm of colon REUBEN Lang , PREM Onset: 04/22/2020 Degeneration of lumbar intervertebral disc [...] SIG Qnty Indications Ordering Provide r Date Onetouch Verio Strips Use To Test BS Twice A Day 50units REUBEN Lang, PNP 11/05/19 21 Amlodipine Besylate 5mg Tablets 1 by mouth [...] test dx: E16.2 1units REUBEN Lang, P SLEEPING ROOM CLEANER 06/19/2020 Blood Glucose Test Strips Premium Strips glucose test strips compatible w/ meter, covered by insurance for twice day bs test dx: e16.2 60units REUBEN Lang, PNP 06/19/20 20 Lancets Micro Thin 33G Thin 33G Mi sc lancets that will be covered by insurance and compatible with meter for bs test 2 x day dx: e16.2 60units REUBEN Lang, PNP 2019 Bupropion Hydrochloride ER (XL) 300mg Tablets ER 24HR Take One Tablet By Mouth Every Morning 30tabs REUBNE Lang, PNP 01/15/2019 Tizanidine HCL 4mg Tablets [...] CPT Code Status Date Vaccine Lot # [id number] Given 10/16/2019 Influenza (>= 6 Months) P.F. [...] H/L Range Note Complete Blood Count 11/25/2020 [facility] White Blood Count 6.1 10 Normal 4.0-10.0 [...] % Normal 0-0 Basic Metabolic Profile 11/25/2020 [facility] Glucose, Fasting 86 mg/dL Normal 70-100 Blood [...] 8-16 Calcium Level 9.1 mg/dL Normal 8.5-10.1 CBC W/Automated Diff 10/14/2020 [facility] CBC W/Automated Diff (SEE NOTE) 2, 3 WBC 6.4 10^3/uL 4.2 - 11.0 RBC [...] Lymph 23.1 % Low 25.0 - 40.0 [place]ven 13.0 % High 3.0 - 8.0 Eos 2.2 % 0.0 - 7.0 Baso 0.6 % 0.0 - 2.0 %Ig 0.5 % High 0.0 - 0.0 %NRBC 0.0 % 0.0 - 0.0 #Neut 3.88 10^3/uL 2.00 - 6.90 #Lymph 1.48 10^3/uL 0.60 - 3.40 #[place]ven 0.83 10^3/uL 0.00 - 0.90 #Eos 0.14 10^3/uL 0.00 - 0.70 #Baso 0.04 10^3/uL 0.00 - 0.20 #Ig 0.03 10^3/uL 0.00 - 0.10 #NRBC 0.00 10^3/uL 0.00 - 0.00 Manual Diff NOT INDICATED RBC Morph NOT INDICATED Comprehensive Metabolic Panel 10/14/2020 [facility] Comprehensive Metabo (SEE NOTE) 4 Sodium 139 mEq/L 134 - 153 Potassium [...] >60 mL/min Afr Amer GFR >60 mL/min 5 Laboratory test finding 10/14/2020 [facility] Hgba1c 5.3 % 4.4 - 6.1 6 Cve Panel 10/14/2020 [facility] Cve Panel (SEE NOTE) 7 Cholesterol 201 mg/dL High 131 - 200 Triglycerides 180 mg/dL High 35 - 160 HDL 39 mg/dL 29 - 86 LDL 123 mg/dL 65 - 175 Risk Factor 5.2 High 3.4 - 4.9 LDL/HDL 3.15 1.00 - 3.55 8 Laboratory test finding 10/14/2020 [facility] TSH Highly Sensitive 2.86 uIU/mL 0.47 - 5.01 Lyme Disease Antibodies 10/14/2020 [facility] Lyme IgG/IgM Ab <0.91 ISR 0.00-0.90 9 Lyme Disease Ab, Quant,IgM <0.80 index 0.00-0.79 1 0 Laboratory test finding 10/14/2020 [facility] PSA - Diagnostic 0.58 ng/mL 0.00 - 4.00 11 Laboratory test finding 06/19/2020 In Office Inhouse Fingerstick Glucose 100 1 Units are mL/min/1.73 m2 Chronic Kidney Disease Staging per NKF: Stage I & II GFR >=60 Normal to Mildly Decreased Stage III GFR 30-59 Moderately Decreased Stage IV GFR 15-29 Severely Decreased Stage V GFR <15 Very Little GFR Left ESRD GFR <15 on DIRECTOR SECURITY MANAGEMENT 2 Is patient fasting? N 3 COMPLETE BLOOD COUNT 4 COMPREHENSIVE METABOLIC PANE L 5 Male GFR Interprentation 20-49 yrs >60 mL/min Normal 50-59 yrs >56 mL/min Normal 60-69 yrs >49 mL/min Normal 70-79yrs >42 mL/min Normal 80 and above >35 mL/min Normal Female GFR Interpretation 20-39 yrs >60 mL/min Normal 40-49 yrs >58 mL/min Normal 50-59 yrs >51 mL/min Normal 60-69 yrs >45 mL/min Normal 70-79 yrs >39 mL/min Normal 80 and above >32 mL/min Normal 6 {A1] {HB] 7 LIPID PANEL 8 CVE RISK CHOL/HDL LDL/HDL MEN: 1/2 AVERAGE 3.43 1.00 AVERAGE 4.97 3.55 2X AVERAGE 9.55 6.25 3X AVERAGE 23.99 7.99 WOMEN: 1/2 AVERAGE 3.27 1.47 AVERAGE 4.44 3.22 2X AVERAGE 7.05 5.03 3X AVERAGE 11.04 6.14 9 Negative <0.91 Equivocal 0.91 - 1.09 Positive >1.09 10 Negative <0.80 Equivocal 0.80 - 1.19 Positive >1.19 IgM levels may peak at 3-6 weeks post infection, then gradually decline. 11 \\BLDo\\PSA INTERPRETATION\\BLD x\\ The PSA assay should [...] or kits cannot be used interchangeably. Procedures Description No Information Available Medical Devices Description No Information Available Encounters Description No Information Available Assessments Date Code Description Provider 10/21/2020 E78.00 Pure hypercholesterolemia, unspe cified REUBEN Lang, PNP 10/21/2020 I10 Essential (primary) hypertension REUBEN Lang, PNP 10/21/2020 Z79.899 Other terminal make up operator (current) drug t herapy REUBEN Lang, PNP 10/14/2020 E83.42 Hypomagnesemia [facility] 10/14/2020 E78.00 [facility]mia, [facility] Z79.899 Other terminal make up operator (current) drug t herapy [facility] 10/14/2020 R94.4 Abnormal results of kidney funct ion studies [facility] 10/14/2020 W57.xxxA Bitten or stung by n onvenomous insect and other nonvenomous arthropods, initial encounter [facility] 07/21/2020 I10 Essential (primary) hypertension REUBEN Lang, PNP 07/21/2020 E16.2 Hypoglycemia, unspecified REUBEN Castorena, PNP 07/21/2020 E27.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 REUBEN Lang, PNP 07/21/2020 E78.00 Pure hypercholesterolemia, unspe cified REUBEN Lang, PNP 07/21/2020 E83.42 Hypomagnesemia RADU Lang, PNP 07/21/2020 R94.4 Abnormal results of kidney funct ion studies REUBEN Lang, PNP 07/21/2020 Z79.899 Other care home (current) drug t herapy REUBEN Lang, PNP 07/21/2020 I70.0 Atherosclerosis of aorta REUBEN Liang, PNP 06/19/2020 I10 Essential (primary) hypertension REUBEN Lang, PNP 06/19/2020 E16.2 Hypoglycemia, unspecified REUBEN Castorena, PNP 06/19/2020 E78.00 Pure hypercholesterolemia, unspe cified REUBEN Lang, PNP 06/19/2020 Z79.899 Other terminal make up operator (current) drug t herapy REUBEN Lang PNP Plan of Treatment Future Appointment(s):* 12/11/2020 9:30 am - [facility] at [facility] * 12/17/2020 1:00 pm - REUBEN Lang PNP at [facility] Functional Status Description No Information Available Mental [...]
--- OUTSIDE RECORDS SUMMARY | 2020-11-28 23:59 | CCD | Continuity of Care Document ---
Author Author Mack HENSLEY Organization Unknown Address [address], [address] [place] [address] Phone [phone] Care Team Providers Care Ice Guard Inspector Name Role Phone Sarina Hernandez AUTM [phone] Problems Active Problems Provider Date Essential hypertension [...] lb BMI (Body Mass Index) 27.4 kg/m2 [place] Body Weight 142 lb Weight 77.112 kg BSA (Body Surface Area) 1.87 m2 09/02/2020 9:55am BP Systolic 153 mmHg BP Diastolic 99 mmHg Height 66 inches 5'6" Weight 175.50 lb BMI (Body Mass Index) 28.3 kg/m2 [place] Body Weight 142 lb Weight 79.607 kg BSA (Body Surface Area) 1.89 m2 Results Test Acquired Date Facility Test Result H/L Range Note Complete Blood Count 11/25/2020 [facility] enter Main Lab [address] [place] [address] [phone] White Blood Count 6.1 10 Normal 4.0-10.0 [...] Blood Cell % 0.0 % Normal 0-0 Procedures Description No Information Available Medical Devices Description No Information Available Encounters Type Date Location Provider Dx Diagnosis Office Visit 09/25/2020 11:00a [facility] Practice MARÍA Hollins I70.1 Atherosclerosis of renal artery I70.203 Unsp athscl [place] arteries of extremities, bilateral legs F17.210 Nicotine dependence, cigaret quentin, uncomplicated Office Visit 09/02/2020 9:45a [facility] Practice MARÍA Hollins I70.203 Unsp athscl [place] arteries of extremiti es, bilateral legs I70.1 Atherosclerosis of renal art rajni F17.210 Nicotine dependence, cigaret quentin, uncomplicated Office Visit 08/04/2020 1:00p [facility] Practice MARÍA Hollins I70.203 Unsp athscl [place] arteries of extremiti es, bilateral legs I70.1 Atherosclerosis of renal art rajni F17.210 Nicotine dependence, cigaret quentin, uncomplicated Assessments Date Code Description Provider 09/25/2020 I70.1 Atherosclerosis of renal artery MARÍA Ward 09/25/2020 I70.203 Unspecified atherosc lerosis of [place] arteries of extremities, bilateral legs MARÍA Ward 09/25/2020 F17.210 Nicotine dependence, cigarettes, uncomplicated MARÍA Ward 09/02/2020 I70.203 Unspecified atherosc lerosis of [place] arteries of extremities, bilateral legs MARÍA Ward 09/02/2020 I70.1 Atherosclerosis of renal artery MARÍA Ward 09/02/2020 F17.210 Nicotine dependence, cigarettes, uncomplicated MARÍA Ward 08/04/2020 I70.203 Unspecified atherosc lerosis of [place] arteries of extremities, bilateral legs MARÍA Ward 08/04/2020 I70.1 Atherosclerosis of renal artery MARÍA Ward 08/04/2020 F17.210 Nicotine dependence, cigarettes, uncomplicated MARÍA Ward Plan of Treatment Future Appointment(s):* 12/02/2020 9:15 am - MARÍA Ward at [facility] Practice 09/25/2020 - MARÍA Ward* I70.1 Atherosclerosis of renal artery * I70.203 Unspecified atherosclerosis of [place] arteries of extremities, bilateral legs * F17.210 Nicotine dependence, cigarettes, uncomplicated Functional Status Description No Information Available Mental Status Description No Information Available Referrals Refer to Dr Reason for Referral Status Appt Date Emily Hensley P.A. CALCIFICATION, STENOSIS Closed 08/04/2020 [address], [address] [place] [address] [place] [address] [phone]
--- OUTSIDE RECORDS SUMMARY | 2020-11-29 | CCD | Continuity of Care Document ---
Author Author Mack HENSLEY Organization Unknown Address [address], [address] [place] [address] Phone [phone] Care Team Providers Care Channel Rebuilder Name Role Phone Sarina Hernandez AUTM [phone] Problems Active Problems Provider Date Essential hypertension [...] lb BMI (Body Mass Index) 27.4 kg/m2 [place] Body Weight 142 lb Weight 77.112 kg BSA (Body Surface Area) 1.87 m2 09/02/2020 9:55am BP Systolic 153 mmHg BP Diastolic 99 mmHg Height 66 inches 5'6" Weight 175.50 lb BMI (Body Mass Index) 28.3 kg/m2 [place] Body Weight 142 lb Weight 79.607 kg BSA (Body Surface Area) 1.89 m2 Results Description No Information Available Procedures Description No Information Available Medical Devices Description No Information Available Encounters Type Date Location Provider Dx Diagnosis Office Visit 08/04/2020 1:00p [facility] MARÍA Hollins I70.203 Unsp athscl [place] arteries of extremiti es, bilateral legs I70.1 Atherosclerosis of renal art rajni F17.210 Nicotine dependence, cigaret quentin, uncomplicated Assessments Date Code Description Provider 09/02/2020 I70.203 Unspecified atherosc lerosis of [place] arteries of extremities, bilateral legs MARÍA Ward 09/02/2020 I70.1 Atherosclerosis of renal artery MARÍA Ward 09/02/2020 F17.210 Nicotine dependence, cigarettes, uncomplicated MARÍA Ward 08/04/2020 I70.203 Unspecified atherosc lerosis of [place] arteries of extremities, bilateral legs MARÍA Ward 08/04/2020 I70.1 Atherosclerosis of renal artery MARÍA Ward 08/04/2020 F17.210 Nicotine dependence, cigarettes, uncomplicated MARÍA Ward Plan of Treatment No Information Available Functional Status Description No Information Available Mental Status Description No Information Available Referrals Refer to Reason for Referral Status Appt Date Emily Hensley P.A. CALCIFICATION, STENOSIS Scheduled 08/04/2020 [address], [facility] [address] [place] [address] [place] [id number] [phone]
--- OUTSIDE RECORDS SUMMARY | 2020-11-29 | CCD | Continuity of Care Document ---
Author Author Mack PRATT MD Organization Unknown Address [address] [place] [address] Phone [phone] Care Team Providers Care French Drawer Name Role Phone David Sarina Danielle SCHOOL SPEECH THERAPIST AUTM [phone] Problems Active Problems Provider Date Open wound of elbow Onset: 07/31/1999 Social History Type Date Description Comments Sex Unknown ETOH Use Denies alcohol use Tobacco Use Start: Unknown Patient is a current smoker, smo kes every day Allergies, Adverse Reactions, Alerts Active Allergies Reaction Severity Comments Date Penicillin 07/26/2017 Medications Active Medications SIG Qnty Indications Ordering Provide r Date Gabapentin 300mg Capsules Take One Capsule By Mouth Three Times A Day as Directed 90caps M43.17 Messi Pratt MD 07/14/2018 Meloxicam 15mg Tablets Take One Tablet By Mouth Every Day With Food Or Milk Maximum Daily Dose = 1 60tabs M43 .17 Benton Gilliland MD 06/14/2018 Tizanidine HCL 4mg Tablets Take 1 Tablet By Mouth 3 Times A Day as Needed Max Daily Dose = 3Tabs 90tabs M43. 17 Benton Gilliland MD 06/14/2018 Zanaflex 4mg Tablets 1 by mouth three times a day 60tabs M48.07 Benton Gilliland MD 07/26/2017 Tramadol HCL 50mg Tablets 1 every 4-6 hours as needed pain 60tabs M48.07 Romario Dewey MD 07/26/20 17 Claritin 10mg Capsules 1 by mouth every day as needed for allergy symptoms Unknown Propranolol HCL 40mg Tablets 1 by mouth every day Unknown Simvastatin 40mg Tablets 1 by mouth every day Unknown Bupropion HCL ER (Smoking Det) 150mg Tablets ER 12HR Unknown Immunizations Description No Information Available Vital Signs Date Vital Result Comment 09/28/2018 11:21am Body Temperature 96.1 F Height 64 inches 5'4" Weight 170.00 lb BMI (Body Mass Index) 29.2 kg/m2 09/08/2018 9:25am Height 66 inches 5'6" Weight 171.50 lb BMI (Body Mass Index) 27.7 kg/m2 Results Description No Information Available Procedures Date Code Description Status 08/29/2020 59385 X-Ray Spine Lumbosacral Ap & Lat eral 2-3 Views Completed Medical Devices Description No Information Available Encounters Type Date Location Provider Dx Diagnosis Office Visit 08/29/2020 2:15p [place] Messi Pratt MD M43.17 Spondylolisthesis, lumbosacral region Z98.1 Arthrodesis status F17.210 Nicotine dependence, cigaret quentin, uncomplicated Office Visit 05/23/2020 3:30p [place] Pratt MD M48.061 Spinal stenosis, lumbar region without neurogenic dona Office Visit 04/08/2020 10:45a [place] Messi Pratt MD M43.17 Spondylolisthesis, lumbosacral region M96.0 Pseudarthrosis after fusion or arthrodesis F17.210 Nicotine dependence, cigaret quentin, uncomplicated Assessments Date Code Description Provider 08/29/2020 M43.17 Spondylolisthesis, lumbosacral r egion Messi Pratt MD 08/29/2020 Z98.1 Arthrodesis status Messi vernon MD 08/29/2020 F17.210 Nicotine dependence, cigarettes, uncomplicated Messi Pratt MD 05/23/2020 M48.061 Spinal stenosis, lum bar region without neurogenic claudication Messi Pratt MD 04/08/2020 M43.17 Spondylolisthesis, lumbosacral r egion Messi Pratt MD 04/08/2020 M96.0 Pseudarthrosis after fusion or a rthrodesis Messi Pratt MD 04/08/2020 F17.210 Nicotine dependence, cigarettes, uncomplicated Messi Pratt MD Plan of Treatment 08/29/2020 - Messi Pratt MD* M43.17 Spondylolisthesis, lumbosacral region * Z98.1 Arthrodesis status* Follow up:* in 2 months for back recheck * F17.210 Nicotine dependence, cigarettes, uncomplicated Functional Status Description No Information Available Mental Status Description No Information Available Referrals Refer to Reason for Referral Status Appt Date Messi Pratt MD physical therapy evaluation approved for lumbar 09/11/20- 12/10/20 nlg Created [address] [place] [address] [phone] Messi Pratt MD continuation of care physical therapy lumbar nlg Created [address] [place] [address] [phone] Messi Pratt MD THREE PHASE BONE SCAN AUTH PER WEB, PASS ING TO FERNANDO. LM Created [address] [place] [address] [phone]
--- OUTSIDE RECORDS SUMMARY | 2020-11-29 | CCD | Continuity of Care Document ---
Author Author Mack GARCIA P.T. Organization Unknown Address [address] [place] [address] Phone [phone] Care Team Providers Care Oral Hygienist Name Role Phone David Sarina Danielle SAP PORTAL CONSULTANT AUTM [phone] Problems Active Problems Provider Date Open wound [...] A Day as Directed 90caps M43.17 Messi Noel MD 07/14/2018 Meloxicam 15mg Tablets Take One [...] Information Available Procedures Date Code Description Status 09/19/2020 70720 Physical Therapy Eval - Low Comp lexity Completed 08/29/2020 85000 X-Ray Spine Lumbosacral Ap & Lat eral 2-3 Views Completed Medical Devices Description No Information Available Encounters Type Date Location Provider Dx Diagnosis Office Visit 08/29/2020 2:15p [facility] [place] Messi Noel MD M43.17 Spondylolisthesis, lumbosacral region Z98.1 Arthrodesis status F17.210 Nicotine dependence, cigaret quentin, uncomplicated Office Visit 05/23/2020 [facility] [place] M48.061 Spinal stenosis, lumbar region without neurogenic dona Office Visit 04/08/2020 10:[facility] M43.17 Spondylolisthesis, lumbosacral region M96.0 Pseudarthrosis after fusion or arthrodesis F17.210 Nicotine dependence, cigaret quentin, uncomplicated Assessments Date Code Description Provider 09/19/2020 M43.17 Spondylolisthesis, lumbosacral r egion Ramón Garcia P.T. 09/19/2020 Z98.1 Arthrodesis status Ramón maya P.T. 08/29/2020 M43.17 Spondylolisthesis, lumbosacral r egion Messi Noel MD 08/29/2020 Z98.1 Arthrodesis status Messi vernon MD 08/29/2020 F17.210 Nicotine dependence, cigarettes, uncomplicated Messi Noel MD 05/23/2020 M48.061 Spinal stenosis, lum bar region without neurogenic claudication Messi Noel MD 04/08/2020 M43.17 Spondylolisthesis, lumbosacral r egion Messi Noel MD 04/08/2020 M96.0 Pseudarthrosis after fusion or a rthrodesis Messi Noel MD 04/08/2020 F17.210 Nicotine dependence, cigarettes, uncomplicated Messi Noel MD Plan of Treatment Future Appointment(s):* 09/30/2020 10:30 am - Ramón Garcia P.T. at Physical Therapy Functional Status Description No Information Available Mental Status Description No Information Available Referrals Refer to Dr Reason for Referral Status Appt Date Messi Noel MD physical therapy evaluation approved for lumbar 09/11/20- 12/10/20 nlg Created [address] [place] [address] [phone] Messi Noel MD continuation of care physical therapy lumbar nlg Created [address] [place] [address] [phone] Messi Noel MD THREE PHASE BONE SCAN AUTH PER WEB, PASS ING TO FERNANDO. LM Created [address] [place] [address] [phone]
--- OUTSIDE RECORDS SUMMARY | 2020-11-29 | CCD | Continuity of Care Document ---
Author Author Mack HENSLEY Organization Unknown Address [address] [facility], [address] [place] [address] Phone [phone] Care Team Providers Care Voicer Name Role Phone Sarina Hernandez AUTM [phone] Problems Active Problems Provider Date Essential hypertension MARÍA Ward Onset: 08/04/2020 Social History Type Date Description Comments Sex Unknown ETOH Use Occasionally consumes alcohol Tobacco Use Start: Unknown Smokes 1 Pack A Day X35 YRS Recreational Drug Use Denies Drug Use Smoking Status Reviewed: 09/02/20 Smokes 1 Pack A Day X35 YRS [...] tab by mouth once a day Unknown Immunizations Description No Information Available Vital Signs Date Vital Result Comment 09/02/2020 9:55am BP Systolic 153 mmHg BP Diastolic 99 mmHg Height 66 inches 5'6" Weight 175.50 lb BMI (Body Mass Index) 28.3 kg/m2 [place] Body Weight 142 lb Weight 79.607 kg BSA (Body Surface Area) 1.89 m2 08/04/2020 1:18pm BP Systolic 152 mmHg BP Diastolic 96 mmHg Height 66 inches 5'6" Weight 168.00 lb BMI (Body Mass Index) 27.1 kg/m2 [place] Body Weight 142 lb Weight 76.205 kg BSA (Body Surface Area) 1.86 m2 Results Description No Information Available Procedures Description No Information Available Medical Devices Description No Information Available Encounters Type Date Location Provider Dx Diagnosis Office Visit 08/04/2020 1:00p [facility] MARÍA Hollins I70.[address] [place] arteries of extremiti es, bilateral legs I70.1 Atherosclerosis of renal art rajni F17.210 Nicotine dependence, cigaret quentin, uncomplicated Assessments Date Code Description Provider 08/04/2020 I70.[address] of [place] arteries of extremities, bilateral legs MARÍA Ward 08/04/2020 I70.1 Atherosclerosis of renal artery MARÍA Ward 08/04/2020 F17.210 Nicotine dependence, cigarettes, uncomplicated MARÍA Ward Plan of Treatment No Information Available Functional Status Description No Information Available Mental Status Description No Information Available Referrals Refer to Dr Reason for Referral Status Appt Date Emily Hensley PLili CALCIFICATION, STENOSIS Scheduled 08/04/2020 [address] [facility] [address] [place] [address] [place] [address] [phone]
--- OUTSIDE RECORDS SUMMARY | 2020-11-29 | CCD | Continuity of Care Document ---
Author Author Mack GUAMAN P.T. Organization Unknown Address [address] [place] [address] Phone [phone] Care Team Providers Care Floor Attendant Name Role Phone David Sarina Danielle FLOATMAN AUTM [phone] Problems Active Problems Provider Date Open wound [...] Available Procedures Date Code Description Status 08/29/2020 01508 X-Ray Spine Lumbosacral Ap & Lat eral 2-3 Views Completed Medical Devices Description No Information Available Encounters Type Date Location Provider Dx Diagnosis Office Visit 08/29/2020 2:15p [place] Messi Noel MD M43.17 Spondylolisthesis, lumbosacral region Z98.1 Arthrodesis status F17.210 Nicotine dependence, cigaret quentin, uncomplicated Office Visit 05/23/2020 3:[place]p [place] M48.061 Spinal stenosis, lumbar region without neurogenic dona Office Visit 04/08/2020 10:45a [place] Messi Noel MD M43.17 Spondylolisthesis, lumbosacral region M96.0 [...] Noel MD Plan of Treatment Future Appointment(s):* 09/25/2020 11:00 am - Melly Abbott P.T.A. at Physical Therapy * 09/23/2020 11:30 am - Jackelyn Villarreal PTA at Physical Therapy Functional Status Description No Information Available Mental Status Description No Information Available Referrals Refer to Reason for Referral Status Appt Date Messi Noel MD physical therapy evaluation approved for lumbar 09/11/20- 12/10/20 nlg Created [address] [place] [address] [phone] Messi Noel MD continuation of care physical therapy lumbar nlg Created [address] [place] [address] [phone] Messi Noel MD THREE PHASE BONE SCAN AUTH PER WEB, PASS ING TO FERNANDO. LM Created [address] [place] [address] [phone]
--- OUTSIDE RECORDS SUMMARY | 2020-11-29 | CCD | Continuity of Care Document ---
Author Author [facility] Organization Unknown Address [facility] [address] [place] [address] Phone [phone] Care Team Providers Care Steward/Stewardess Bath Name Role Phone Sarina Hernandez AUTM [phone] Problems Active Problems Provider Date Disorder of magnesium metabolism [facility] O nset: 04/22/2020 Pure hypercholesterolemia [facility] Onset: 0 04/22/2020 Taking medication [facility] Onset: 020 [facility]2020 Screening for malignant neoplasm [...] test dx: E16.2 1units REUBEN Lang, P STRAIGHTENING MACHINE OPERATOR 06/19/2020 Blood Glucose Test Strips Premium Strips [...] CPT Code Status Date Vaccine Lot # [id number] Given 10/16/2019 Influenza (>= 6 Months) P.F. [...] Result H/L Range Note Laboratory test finding 06/19/2020 In Office Inhouse Fingerstick Glucose 100 CBC W/Automated Diff 04/15/2020 [facility] CBC W/Automated Diff (SEE NOTE) 1, 2 [...] Lymph 23.6 % Low 25.0 - 40.0 [place] 10.8 % High 3.0 - 8.0 Eos 2.2 % 0.0 - 7.0 Baso 0.6 % 0.0 - 2.0 %Ig 0.3 % High 0.0 - 0.0 %NRBC 0.0 % 0.0 - 0.0 #Neut 4.51 10^3/uL 2.00 - 6.90 #Lymph 1.70 10^3/uL 0.60 - 3.40 #[place] 0.78 10^3/uL 0.00 - 0.90 #Eos 0.16 10^3/uL 0.00 - 0.70 #Baso 0.04 10^3/uL 0.00 - 0.20 #Ig 0.02 10^3/uL 0.00 - 0.10 #NRBC 0.00 10^3/uL 0.00 - 0.00 Manual Diff NOT INDICATED RBC Morph NOT INDICATED Comprehensive Metabolic Panel 04/15/2020 [facility] ospital Comprehensive Metabo (SEE NOTE) 3 Sodium 140 [...] >60 mL/min 4 Laboratory test finding 04/15/2020 [facility] Hgba1c 5.2 % 4.4 - 6.1 5 Cve Panel 04/15/2020 [facility] Cve Panel (SEE NOTE) 6 Cholesterol 238 mg/dL High 131 - 200 Triglycerides 280 mg/dL High 35 - 160 HDL 34 mg/dL 29 - 86 LDL 141 mg/dL 65 - 175 Risk Factor 7.0 High 3.4 - 4.9 LDL/HDL 4.15 High 1.00 - 3.55 7 Laboratory test finding 04/15/2020 [facility] TSH Highly Sensitive 2.38 uIU/mL 0.47 - 5.01 PSA Free & Total 04/15/2020 [facility] Prostate Specific Ag,Serum 0.5 ng/mL 0.0-4.0 8 [...] 8 Cathryn ECLIA methodology. According to the [place] [employer], Serum PSA should decrease and [...] ng/mL. Procedures Date Code Description Status 04/22/2020 35763 Admin Patient Focused Health Ris k Assessment Instrument Completed Medical Devices Description No Information Available Encounters Description No Information Available Assessments Date Code Description Provider 07/21/2020 I10 Essential (primary) hypertension REUBEN Lang, PNP 07/21/2020 E16.2 Hypoglycemia, unspecified REUBEN Castorena, PNP 07/21/2020 E27.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 REUBEN Lang, PNP 07/21/2020 E78.00 Pure hypercholesterolemia, unspe cified REUBEN Lang, PNP 07/21/2020 E83.42 Hypomagnesemia RADU Lang BC, PNP 07/21/2020 R94.4 Abnormal results of kidney funct ion studies REUBEN Lang, PNP 07/21/2020 Z79.899 Other residential (current) drug t herapy REUBEN Lang, PNP 07/21/2020 I70.0 Atherosclerosis of aorta SNATOS Liang-BC, PNP 06/19/2020 I10 Essential (primary) hypertension RADU LangBC, PNP 06/19/2020 E16.2 Hypoglycemia, unspecified Sarina germain ANP-BC, PNP 06/19/2020 E78.00 Pure hypercholesterolemia, unspe cified REUBEN Lang, PNP 06/19/2020 Z79.899 Other residential (current) drug t herapy REUBEN Lang, PNP 04/22/2020 E78.00 Pure hypercholesterolemia, unspe cified REUBEN Lang, PNP 04/22/2020 I10 Essential (primary) hypertension REUBEN Lang, PNP 04/22/2020 Z79.899 Other residential (current) drug t herapy REUBEN Lang, PNP 04/22/2020 R94.4 Abnormal results of kidney funct ion studies REUBEN Lang, PNP 04/22/2020 E83.42 Hypomagnesemia RADU Lang, PNP 04/15/2020 E83.42 [facility] 04/15/2020 E78.00 Pure hypercholesterolemia, unspe cified [facility] 04/15/2020 Z79.899 Other filler leaf cutter long (current) drug t herapy [facility] 04/15/2020 R94.4 Abnormal results of kidney funct ion studies [facility] Plan of Treatment Future Appointment(s):* 10/14/2020 9:00 am - [facility] * 10/21/2020 1:00 pm - REUBEN Lang PNP at [facility] * 12/11/2020 9:30 am - [facility] at [facility] * 12/17/2020 1:00 pm - REUBEN Lang PNP at [facility] 07/21/2020 - Sarina Hernandez, ANP-BC, PNP* I10 Essential (primary) hypertension* Comments:* JNC8 [...] will continue to monitor. * Z79.899 Other filler leaf cutter long (current) drug therapy* Comments:* Patient to continue [...]
--- OUTSIDE RECORDS SUMMARY | 2020-11-29 00:01 | CCD ---
Author Author [facility] Organization [facility] Address Unknown Phone Unavailable Care Team Providers Care Sort Manager Name Role Phone Hensley, L Emily RPA Unavailable Unavailable Hensley, L Emily RPA Unavailable Unavailable Hensley, L Emily RPA Unavailable Unavailable Hensley, L Emily RPA Unavailable Unavailable Hensley, L Emily RPA Unavailable Unavailable Hensley, L Emily RPA Unavailable Unavailable Hensley, L Emily RPA Unavailable Unavailable Hensley, L Emily RPA Unavailable Unavailable Hensley, L Emily RPA Unavailable Unavailable Hensley, L Emily RPA Unavailable Unavailable Hensley, L Emily RPA Unavailable Unavailable Hensley, L Emily RPA Unavailable Unavailable Hensley, L Emily RPA Unavailable Unavailable Hensley, L Emily RPA Unavailable Unavailable Hensley, L Emily RPA Unavailable Unavailable Hensley, L Emily RPA Unavailable Unavailable Hensley, L Emily RPA Unavailable Unavailable Hensley, L Emily RPA Unavailable Unavailable Hensley, L Emily RPA Unavailable Unavailable Hensley, L Emily RPA Unavailable Unavailable Hensley, L Emily RPA Unavailable Unavailable Hensley, L Emily RPA Unavailable Unavailable Hensley, L Emily RPA Unavailable Unavailable Hensley, L Emily RPA Unavailable Unavailable Hensley, L Emily RPA Unavailable Unavailable Hensley, L Emily RPA Unavailable Unavailable Hensley, L Emily RPA Unavailable Unavailable Hensley, L Emily RPA Unavailable Unavailable Hensley, L Emily RPA Unavailable Unavailable Hensley, L Emily RPA Unavailable Unavailable Hensley, L Emily RPA Unavailable Unavailable Hensley, L Emily RPA Unavailable Unavailable David, Zainab Kyara ANP-BC Unavailable Unavailable David, Zainab Kyara ANP-BC Unavailable Unavailable David, Zainab Kyara ANP-BC Unavailable Unavailable David, Zainab Kyara ANP-BC Unavailable Unavailable David, Zainab Kyara ANP-BC Unavailable Unavailable David, Zainab Kyara ANP-BC Unavailable Unavailable David, Zainab Kyara ANP-BC Unavailable Unavailable Dvaid, Zainab Kyara ANP-BC Unavailable Unavailable David, Zainab Kyara ANP-BC Unavailable Unavailable David, Zainab Kyara ANP-BC Unavailable Unavailable David, Zainab Kyara ANP-BC Unavailable Unavailable David, Zainab Kyara ANP-BC Unavailable Unavailable David, Zainab Kyara ANP-BC Unavailable Unavailable David, Zainab Kyara ANP-BC Unavailable Unavailable David, Zainab Kyara ANP-BC Unavailable Unavailable David, Zainab Kyara ANP-BC Unavailable Unavailable David, Zainab Kyara ANP-BC Unavailable Unavailable David, Zainab Kyara ANP-BC Unavailable Unavailable David, Zainab Kyara ANP-BC Unavailable Unavailable David, Zainab Kyara ANP-BC Unavailable Unavailable David, Zainab Kyara ANP-BC Unavailable Unavailable David, Zainab Kyara ANP-BC Unavailable Unavailable David, Zainab Kyara ANP-BC Unavailable Unavailable David, Zainab Kyara ANP-BC Unavailable Unavailable David, Zainab Kyraa ANP-BC Unavailable Unavailable David, Zainab Kyara ANP-BC Unavailable Unavailable David, Zainab Kyara ANP-BC Unavailable Unavailable David, Zainab Kyara ANP-BC Unavailable Unavailable David, Zainab Kyara ANP-BC Unavailable Unavailable David, Zainab Kyara ANP-BC Unavailable Unavailable David, Zainab Kyara ANP-BC Unavailable Unavailable David, Zainab Kyara ANP-BC Unavailable Unavailable David, Zainab Kyara ANP-BC Unavailable Unavailable David, Zainab Kyara ANP-BC Unavailable Unavailable David, Zainab Kyara ANP-BC Unavailable Unavailable David, Zainab Kyara ANP-BC Unavailable Unavailable David, Zainab Kyara ANP-BC Unavailable Unavailable David, Zainab Kyara ANP-BC Unavailable Unavailable David, Zainab Kyara ANP-BC Unavailable Unavailable David, Zainab Kyara ANP-BC Unavailable Unavailable David, Zainab Kyara ANP-BC Unavailable Unavailable David, Zainab Kyara ANP-BC Unavailable Unavailable David, Zainab Kyara ANP-BC Unavailable Unavailable David, Zainab Kyara ANP-BC Unavailable Unavailable David, Zainab Kyara ANP-BC Unavailable Unavailable David, Zainab Kyara ANP-BC Unavailable Unavailable David, Zainab Kyara ANP-BC Unavailable Unavailable David, Zainab Kyara ANP-BC Unavailable Unavailable David, Zainab Kyara ANP-BC Unavailable Unavailable David, Zainab Kyara ANP-BC Unavailable Unavailable David, Zainab Kyara ANP-BC Unavailable Unavailable David, Zainab Kyara ANP-BC Unavailable Unavailable David, Zainab Kyara ANP-BC Unavailable Unavailable David, Zainab Kyara ANP-BC Unavailable Unavailable David, Zainab Kyara ANP-BC Unavailable Unavailable David, Zainab Kyara ANP-BC Unavailable Unavailable David, Zainab Kyara ANP-BC Unavailable Unavailable David, Zainab Kyara ANP-BC Unavailable Unavailable David, Zainab Kyara ANP-BC Unavailable Unavailable David, Zainab Kyara ANP-BC Unavailable Unavailable David, Zainab Kyara ANP-BC Unavailable Unavailable David, Zainab Kyara ANP-BC Unavailable Unavailable David, Zainab Kyara ANP-BC Unavailable Unavailable David, Zainab Kyara ANP-BC Unavailable Unavailable Harris, Yodit ETHYLENE PLANT OPERATOR Unavailable Unavailable Harris, Yodit ETHYLENE PLANT OPERATOR Unavailable Unavailable Harris, Yodit ETHYLENE PLANT OPERATOR Unavailable Unavailable Harris, Yodit ETHYLENE PLANT OPERATOR Unavailable Unavailable Harris, Yodit ETHYLENE PLANT OPERATOR Unavailable Unavailable Harris, Yodit ETHYLENE PLANT OPERATOR Unavailable Unavailable Harris, Yodit ETHYLENE PLANT OPERATOR Unavailable Unavailable Harris, Yodit ETHYLENE PLANT OPERATOR Unavailable Unavailable Harris, Yodit ETHYLENE PLANT OPERATOR Unavailable Unavailable Harris, Yodit ETHYLENE PLANT OPERATOR Unavailable Unavailable Harris, Yodit ETHYLENE PLANT OPERATOR Unavailable Unavailable Harris, Yodit ETHYLENE PLANT OPERATOR Unavailable Unavailable Harris, Yodit ETHYLENE PLANT OPERATOR Unavailable Unavailable Harris, Yodit ETHYLENE PLANT OPERATOR Unavailable Unavailable Harris, Yodit ETHYLENE PLANT OPERATOR Unavailable Unavailable Harris, Yodit ETHYLENE PLANT OPERATOR Unavailable Unavailable Harris, Yodit ETHYLENE PLANT OPERATOR Unavailable Unavailable Harris, Yodit ETHYLENE PLANT OPERATOR Unavailable Unavailable Harris, Yodit ETHYLENE PLANT OPERATOR Unavailable Unavailable Harris, Yodit ETHYLENE PLANT OPERATOR Unavailable Unavailable Harris, Yodit ETHYLENE PLANT OPERATOR Unavailable Unavailable Harris, Yodit ETHYLENE PLANT OPERATOR Unavailable Unavailable Harris, Yodit ETHYLENE PLANT OPERATOR Unavailable Unavailable Harris, Yodit ETHYLENE PLANT OPERATOR Unavailable Unavailable Harris, Yodit ETHYLENE PLANT OPERATOR Unavailable Unavailable Harris, Yodit ETHYLENE PLANT OPERATOR Unavailable Unavailable Harris, Yodit ETHYLENE PLANT OPERATOR Unavailable Unavailable Harris, Yodit ETHYLENE PLANT OPERATOR Unavailable Unavailable Harris, Yodit ETHYLENE PLANT OPERATOR Unavailable Unavailable Harris, Yodit ETHYLENE PLANT OPERATOR Unavailable Unavailable Harris, Yodit ETHYLENE PLANT OPERATOR Unavailable Unavailable Harris, Yodit ETHYLENE PLANT OPERATOR Unavailable Unavailable Harris, Yodit ETHYLENE PLANT OPERATOR Unavailable Unavailable Harris, Yodit ETHYLENE PLANT OPERATOR Unavailable Unavailable Harris, Yodit ETHYLENE PLANT OPERATOR Unavailable Unavailable Harris, Yodit ETHYLENE PLANT OPERATOR Unavailable Unavailable Harris, Yodit ETHYLENE PLANT OPERATOR Unavailable Unavailable Harris, Yodit ETHYLENE PLANT OPERATOR Unavailable Unavailable Harris, Yodit ETHYLENE PLANT OPERATOR Unavailable Unavailable Harris, Yodit ETHYLENE PLANT OPERATOR Unavailable Unavailable Harris, Yodit ETHYLENE PLANT OPERATOR Unavailable Unavailable Harris, Yodit ETHYLENE PLANT OPERATOR Unavailable Unavailable Harris, Yodit ETHYLENE PLANT OPERATOR Unavailable Unavailable Harris, Yodit ETHYLENE PLANT OPERATOR Unavailable Unavailable Harris, Yodit ETHYLENE PLANT OPERATOR Unavailable Unavailable Harris, Yodit ETHYLENE PLANT OPERATOR Unavailable Unavailable Harris, Yodit ETHYLENE PLANT OPERATOR Unavailable Unavailable Harris, Yodit ETHYLENE PLANT OPERATOR Unavailable Unavailable Harris, Yodit ETHYLENE PLANT OPERATOR Unavailable Unavailable Harris, Yodit ETHYLENE PLANT OPERATOR Unavailable Unavailable Harris, Yodit ETHYLENE PLANT OPERATOR Unavailable Unavailable Harris, Yodit ETHYLENE PLANT OPERATOR Unavailable Unavailable Harris, Yodit ETHYLENE PLANT OPERATOR Unavailable Unavailable Harris, Yodit ETHYLENE PLANT OPERATOR Unavailable Unavailable Harris, Yodit ETHYLENE PLANT OPERATOR Unavailable Unavailable Harris, Yodit ETHYLENE PLANT OPERATOR Unavailable Unavailable Harris, Yodit ETHYLENE PLANT OPERATOR Unavailable Unavailable Harris, Yodit ETHYLENE PLANT OPERATOR Unavailable Unavailable Harris, Yodit ETHYLENE PLANT OPERATOR Unavailable Unavailable Harris, Yodit ETHYLENE PLANT OPERATOR Unavailable Unavailable Harris, Yodit ETHYLENE PLANT OPERATOR Unavailable Unavailable Harris, Yodit ETHYLENE PLANT OPERATOR Unavailable Unavailable Harris, Yodit ETHYLENE PLANT OPERATOR Unavailable Unavailable Harris, Yodit ETHYLENE PLANT OPERATOR Unavailable Unavailable Harris, Yodit ETHYLENE PLANT OPERATOR Unavailable Unavailable Harris, Yodit ETHYLENE PLANT OPERATOR Unavailable Unavailable Harris, Yodit ETHYLENE PLANT OPERATOR Unavailable Unavailable Harris, Yodit ETHYLENE PLANT OPERATOR Unavailable Unavailable David, Zainab Kyara ANP-BC Unavailable Unavailable David, Zainab Kyara ANP-BC Unavailable Unavailable David, Zainab Kyara ANP-BC Unavailable Unavailable David, Zainab Kyara ANP-BC Unavailable Unavailable David, Zainab Kyara ANP-BC Unavailable Unavailable David, Zainab Kyara ANP-BC Unavailable Unavailable David, Zainab Kyara ANP-BC Unavailable Unavailable David, Zainab Kyara ANP-BC Unavailable Unavailable David, Zainab Kyara ANP-BC Unavailable Unavailable David, Zainab Kyara ANP-BC Unavailable Unavailable David, Zainab Kyara ANP-BC Unavailable Unavailable David, Zainab Kyara ANP-BC Unavailable Unavailable David, Zainab Kyara ANP-BC Unavailable Unavailable David, Zainab Kyara ANP-BC Unavailable Unavailable David, Zainab Kyara ANP-BC Unavailable Unavailable David, Zainab Kyara ANP-BC Unavailable Unavailable David, Zainab Kyara ANP-BC Unavailable Unavailable David, Zainab Kyara ANP-BC Unavailable Unavailable David, Zainab Kyara ANP-BC Unavailable Unavailable David, Zainab Kyara ANP-BC Unavailable Unavailable David, Zainab Kyara ANP-BC Unavailable Unavailable David, Zainab Kyara ANP-BC Unavailable Unavailable David, Zainab Kyara ANP-BC Unavailable Unavailable David, Zainab Kyara ANP-BC Unavailable Unavailable David, Zainab Kyara ANP-BC Unavailable Unavailable David, Zainab Kyara ANP-BC Unavailable Unavailable David, Zainab Kyara ANP-BC Unavailable Unavailable David, Zainab Kyara ANP-BC Unavailable Unavailable David, Zainab Kyara ANP-BC Unavailable Unavailable David, Zainab Kyara ANP-BC Unavailable Unavailable David, Zainab Kyara ANP-BC Unavailable Unavailable David, Zainab Kyara ANP-BC Unavailable Unavailable David, Zainab Kyara ANP-BC Unavailable Unavailable David, Zainab Kyara ANP-BC Unavailable Unavailable David, Zainab Kyara ANP-BC Unavailable Unavailable David, Zainab Kyara ANP-BC Unavailable Unavailable David, Zainab Kyara ANP-BC Unavailable Unavailable David, Zainab Kyara ANP-BC Unavailable Unavailable David, Zainab Kyara ANP-BC Unavailable Unavailable David, Zainab Kyara ANP-BC Unavailable Unavailable David, Zainab Kyara ANP-BC Unavailable Unavailable David, Zainab Kyara ANP-BC Unavailable Unavailable David, Zainab Kyara ANP-BC Unavailable Unavailable David, Zainab Kyara ANP-BC Unavailable Unavailable David, Zainab Kyara ANP-BC Unavailable Unavailable David, Zainab Kyara ANP-BC Unavailable Unavailable David, Zainab Kyara ANP-BC Unavailable Unavailable David, Zainab Kyara ANP-BC Unavailable Unavailable David, Zainab Kyara ANP-BC Unavailable Unavailable David, Zainab Kyara ANP-BC Unavailable Unavailable David, Zainab Kyara ANP-BC Unavailable Unavailable David, Zainab Kyara ANP-BC Unavailable Unavailable Davdi, Zainab Kyara ANP-BC Unavailable Unavailable David, Zainab Kyara ANP-BC Unavailable Unavailable David, Zainab Kyara ANP-BC Unavailable Unavailable David, Zainab Kyara ANP-BC Unavailable Unavailable David, Zainab Kyara ANP-BC Unavailable Unavailable David, Zainab Kyara ANP-BC Unavailable Unavailable David, Zainab Kyara ANP-BC Unavailable Unavailable David, Zainab Kyara ANP-BC Unavailable Unavailable David, Zainab Kyara ANP-BC Unavailable Unavailable David, Zainab Kyara ANP-BC Unavailable Unavailable David, Zainab Kyara ANP-BC Unavailable Unavailable David, Zainba Kyara ANP-BC Unavailable Unavailable Noel, L Messi CRAWFORD Unavailable Unavailable Noel, Lolis Swenson MD Unavailable Unavailable Noel, Lolis Swenson MD Unavailable Unavailable Noel, Lolis Swenson MD Unavailable Unavailable Noel, Lolis Swenson MD Unavailable Unavailable Noel, Lolis Swenson MD Unavailable Unavailable Noel, Lolis Swenson MD Unavailable Unavailable Noel, Lolis Swenson MD Unavailable Unavailable Noel, Lolis Swenson MD Unavailable Unavailable Noel, Lolis Swenson MD Unavailable Unavailable Noel, Lolis Swenson MD Unavailable Unavailable Noel, Lolis Swenson MD Unavailable Unavailable Noel, Lolis Swenson MD Unavailable Unavailable Noel, Lolis Swenson MD Unavailable Unavailable Noel, Lolis Swenson MD Unavailable Unavailable Noel, Lolis Swenson MD Unavailable Unavailable Noel, Lolis Swenson MD Unavailable Unavailable Noel, Lolis Swenson MD Unavailable Unavailable Noel, Lolis Swenson MD Unavailable Unavailable Noel, Lolis Swenson MD Unavailable Unavailable Noel, Lolis Swenson MD Unavailable Unavailable Noel, Lolis Swenson MD Unavailable Unavailable Noel, Lolis Swenson MD Unavailable Unavailable Noel, Lolis Swenson MD Unavailable Unavailable Noel, Lolis Swenson MD Unavailable Unavailable Noel, Lolis Swenson MD Unavailable Unavailable Noel, Lolis Swenson MD Unavailable Unavailable Noel, Lolis Swenson MD Unavailable Unavailable Noel, Lolis Swenson MD Unavailable Unavailable Noel, Lolis Swenson MD Unavailable Unavailable Noel, Lolis Swenson MD Unavailable Unavailable Noel, Lolis Swenson MD Unavailable Unavailable Noel, Lolis Swenson MD Unavailable Unavailable Noel, Lolis Swenson MD Unavailable Unavailable Noel, Lolis Swenson MD Unavailable Unavailable Noel, Lolis Swenson MD Unavailable Unavailable Noel, Lolis Swenson MD Unavailable Unavailable Noel, Lolis Swenson MD Unavailable Unavailable Noel, Lolis Swenson MD Unavailable Unavailable Noel, Lolis Swenson MD Unavailable Unavailable Noel, Lolis Swenson MD Unavailable Unavailable Noel, Lolis Swenson MD Unavailable Unavailable Noel, L Messi MD Unavailable Unavailable Noel, L Messi MD Unavailable Unavailable Noel, L Messi MD Unavailable Unavailable Noel, L Messi MD Unavailable Unavailable Noel, L Messi MD Unavailable Unavailable Noel, L Messi MD Unavailable Unavailable Noel, L Messi MD Unavailable Unavailable Noel, L Messi MD Unavailable Unavailable Noel, L Messi MD Unavailable Unavailable Noel, L Messi MD Unavailable Unavailable Noel, L Messi MD Unavailable Unavailable Noel, L Messi MD Unavailable Unavailable Noel, L Messi MD Unavailable Unavailable Noel, L Messi MD Unavailable Unavailable Noel, L Messi MD Unavailable Unavailable Noel, L Messi MD Unavailable Unavailable Noel, L Messi MD Unavailable Unavailable Nole, L Messi MD Unavailable Unavailable Noel, L Messi MD Unavailable Unavailable Noel, L Messi MD Unavailable Unavailable Noel, L Messi MD Unavailable Unavailable Noel, L Messi MD Unavailable Unavailable Noel, L Messi MD Unavailable Unavailable Noel, L Messi MD Unavailable Unavailable Noel, L Messi CRAWFORD Unavailable Unavailable Noel, L Messi CRAWFORD Unavailable Unavailable Noel, L Messi CRAWFORD Unavailable Unavailable Noel, L Messi CRAWFORD Unavailable Unavailable Noel, L Messi MD Unavailable Unavailable Noel, L Messi MD Unavailable Unavailable Noel, L Messi MD Unavailable Unavailable Noel, L Mesis MD Unavailable Unavailable Noel, L Messi MD Unavailable Unavailable Noel, L Messi MD Unavailable Unavailable Noel, L Messi MD Unavailable Unavailable Noel, L Messi CRAWFORD Unavailable Unavailable Noel, L Messi MD Unavailable Unavailable Noel, L Messi MD Unavailable Unavailable Noel, L Messi MD Unavailable Unavailable Noel, L Messi CRAWFORD Unavailable Unavailable Noel, L Messi CRAWFORD Unavailable Unavailable Noel, L Messi CRAWFORD Unavailable Unavailable Noel, L Messi CRAWFORD Unavailable Unavailable Noel, L Messi CRAWFORD Unavailable Unavailable Noel, L Messi Unavailable Unavailable Noel, L Messi CRAWFORD Unavailable Unavailable Noel, L Messi CRAWFORD Unavailable Unavailable Noel, L Messi CRAWFORD Unavailable Unavailable Noel, L Messi CRAWFORD Unavailable Unavailable Noel, L Messi CRAWFORD Unavailable Unavailable Noel, L Messi CRAWFORD Unavailable Unavailable Noel, L Messi CRAWFORD Unavailable Unavailable Noel, L Messi CRAWFORD Unavailable Unavailable Noel, L Messi Unavailable Unavailable Re-disclosure Warning The records that you are about to access may contain information from federally-assisted alcohol or drug abuse programs. If such information is present, then the following federally mandated warning applies: This information has been disclosed to you from records protected by federal confidentiality rules (42 CFR part 2). The federal rules prohibit you from making any further disclosure of this information unless further disclosure is expressly permitted by the written consent of the person to whom it pertains or as otherwise permitted by 42 CFR part 2. A general authorization for the release of medical or other information is NOT sufficient for this purpose. The Federal rules restrict any use of the information to criminally investigate or prosecute any alcohol or drug abuse patient.The records that you are about to access may contain highly sensitive health information, the redisclosure of which is protected by Article 27-F of the [facility] Public Health law. If you continue you may have access to information: Regarding HIV / AIDS; Provided by facilities licensed or operated by the [facility] Office of Mental Health; or Provided by the [facility] Office for People With Developmental Disabilities. If such information is present, then the following [facility] mandated warning applies: This information has been disclosed to you from confidential records which are protected by state law. State law prohibits you from making any further disclosure of this information without the specific written consent of the person to whom it pertains, or as otherwise permitted by law. Any unauthorized further disclosure in violation of state law may result in a fine or care home sentence or both. A general authorization for the release of medical or other information is NOT sufficient authorization for further disc losure. Family History Family Member Name Family Member Gender Family Member Status Date o f Status Description Data Source(s) Unknown Male Problem [facility] ([facility]) Unknown Male Problem [facility] ([facility] ) Encounters Encounter Providers Location Date Indications Data Source(s ) Outpatient Attender: Kyara LOVELACEBCConsultant: Kyara GRAHAM-MAKSIM 10/21/2020 12:59:00 PM EST - 10/21/2020 12:59:00 PM [facility] Outpatient Attender: Kyara CASILLASonsultant: Kyara GRAHAM-MAKSIM 10/14/2020 08:55:00 AM EST - 10/14/2020 08:55:00 AM [facility] Outpatient Attender: Emily Enriquez/Leverett/Rios/R eindl 09/25/2020 10:00:00 AM EST [facility] ([facility] Outpatient Attender: Emily Hensley RPA Zoe/Leverett/Rios/R eindl 09/02/2020 08:45:00 AM EST [facility] ([facility]) Outpatient Attender: Messi Noel MD Physical Therapy 08/29/2020 0 1:15:00 PM EST [facility] ([facility]) Outpatient Attender: Emily Hensley RPA Zoe/Leverett/Riso/R eindl 08/04/2020 01:00:00 PM EDT [facility] ([facility]) Outpatient Attender: Kyara Ortiz ANP-BCConsultant: Kyara brar ANP-BC 07/21/2020 12:51:00 PM EDT - 07/21/2020 12:51:00 PM EDT [facility] Outpatient Attender: Kyara Ortiz ANP-BCConsultant: Kyara brar ANP-BC 06/19/2020 08:53:00 AM EDT - 06/19/2020 08:53:00 AM EDT [facility] Office Visit Attender: Messi Noel MD Physical Therapy 2019 03:30:00 PM EDT [facility] ([facility]) Outpatient Attender: Kyara Ortiz ANP-BCConsultant: Kyara brar ANP-BC 04/22/2020 08:53:00 AM EDT - 04/22/2020 08:53:00 AM EDT [facility] Outpatient Attender: Kyara Ortiz ANP-BCConsultant: Kyara brar ANP-BC 04/15/2020 09:03:00 AM EDT - 04/15/2020 09:03:00 AM EDT [facility] Outpatient Attender: Messi Noel MD Physical Therapy 04/08/2020 1 0:45:00 AM EDT [facility] ([facility]) Outpatient Attender: Yodit Harris ETHYLENE PLANT OPERATOR [facility]ULT [facility] 03/03/2020 09:01:03 PM EDT [facility] Outpatient Attender: Messi Noel MD Physical Therapy 02/26/2020 1 0:00:00 AM EDT [facility] ([facility]) Outpatient Attender: Messi Noel MD 01/17/2020 12:58 :00 PM EDT SPONDYLOLISTHERSIS, LUMBAR REGION [facility] SPONDYLOLISTHERSIS, LUMBAR REGION Outpatient Attender: Messi Noel MD Physical Therapy 01/15/2020 1 1:00:00 AM EDT [facility] ([facility] ) [facility]: [facility] Kyara ALEXIS 10/16/2019 09:20:00 AM EST - 10/16/2019 09:20:00 AM EST [facility] Outpatient Attender: Kyara ALEXIS Family Practice 04/2020 08:20:00 AM EST [facility] ([facility]) Immunizations Vaccine Date Status Description Data Source(s) New in 2011. IIV4 10/16/2019 08:45:00 AM EST completed [facility] ([facility]) Medications Medication Brand Name Start Date Product Form Dose Route Admi nistrative Instructions Pharmacy Instructions Status Indications Reaction Description Data Source(s) 75 mg 11/25/2020 12:00:00 AM EST tablet 30 TAKE 1 TABLET [75MG] BY MOUTH DAILY TAKE 1 TABLET [75MG] BY MOUTH DAILY SOLD: 11/25/2020 [facility] BLOOD SUGAR DIAGNOSTIC 11/05/2020 12:00:00 AM EST strip 50 TEST BLOOD SUGAR TWO TIMES A DAY TEST BLOOD SUGAR TWO TIMES A DAY SOLD: 11/06/2020 [facility] [employer] Verio 11/05/2020 12:00:00 AM EST act jorje [facility] ([facility]) 40 mg 10/09/2020 12:00:00 AM EST tablet 45 TAKE ONE AND ONE-HALF TABLETS BY MOUTH EVERY DAY TAKE ONE AND ONE-HALF TABLETS BY MOUTH EVERY DAY SOLD: 10/11/2020 [facility] 40 mg 10/09/2020 12:00:00 AM EST tablet 45 TAKE ONE AND ONE-HALF TABLETS BY MOUTH EVERY DAY TAKE ONE AND ONE-HALF TABLETS BY MOUTH EVERY DAY SOLD: 11/09/2020 [facility] 5 mg 09/12/2020 12:00:00 AM EST tablet 30 TAKE ONE TABLET BY MOUTH EVERY NIGHT TAKE ONE TABLET BY MOUTH EVERY NIGHT SOLD: 11/09/2020 [facility] 5 mg 09/12/2020 12:00:00 AM EST tablet 30 TAKE ONE TABLET BY MOUTH EVERY NIGHT TAKE ONE TABLET BY MOUTH EVERY NIGHT SOLD: 09/14/2020 [facility] Amlodipine 5 MG Oral Tablet Amlodipine Besylate 09/12/2020 12:00:00 A M EST ORAL active [facility] ([facility]) 5 mg 09/12/2020 12:00:00 AM EST tablet 30 TAKE ONE TABLET BY MOUTH EVERY NIGHT TAKE ONE TABLET BY MOUTH EVERY NIGHT SOLD: 10/11/2020 [facility] 40 mg 08/26/2020 12:00:00 AM EST tablet 30 TAKE ONE TABLET BY MOUTH EVERY DAY TAKE ONE TABLET BY MOUTH EVERY DAY SOLD: 09/23/2020 [facility] 40 mg 08/26/2020 12:00:00 AM EST tablet 30 TAKE ONE TABLET BY MOUTH EVERY DAY TAKE ONE TABLET BY MOUTH EVERY DAY SOLD: 11/18/2020 [facility] 40 mg 08/26/2020 12:00:00 AM EST tablet 30 TAKE ONE TABLET BY MOUTH EVERY DAY TAKE ONE TABLET BY MOUTH EVERY DAY SOLD: 08/26/2020 [facility] 40 mg 08/26/2020 12:00:00 AM EST tablet 30 TAKE ONE TABLET BY MOUTH EVERY DAY TAKE ONE TABLET BY MOUTH EVERY DAY SOLD: 10/21/2020 [facility] 15 mg 07/24/2020 12:00:00 AM EDT tablet 30 TAKE ONE TABLET BY MOUTH ONCE DAILY WITH FOOD OR MILK TAKE ONE TABLET BY MOUTH ONCE DAILY WITH FOOD OR MILK SOLD: 10/18/2020 [facility] 15 mg 07/24/2020 12:00:00 AM EDT tablet 30 TAKE ONE TABLET BY MOUTH ONCE DAILY WITH FOOD OR MILK TAKE ONE TABLET BY MOUTH ONCE DAILY WITH FOOD OR MILK SOLD: 07/26/2020 [facility] 15 mg 07/24/2020 12:00:00 AM EDT tablet 30 TAKE ONE TABLET BY MOUTH ONCE DAILY WITH FOOD OR MILK TAKE ONE TABLET BY MOUTH ONCE DAILY WITH FOOD OR MILK SOLD: 09/21/2020 [facility] 15 mg 07/24/2020 12:00:00 AM EDT tablet 30 TAKE ONE TABLET BY MOUTH ONCE DAILY WITH FOOD OR MILK TAKE ONE TABLET BY MOUTH ONCE DAILY WITH FOOD OR MILK SOLD: 11/15/2020 [facility] 15 mg 07/24/2020 12:00:00 AM EDT tablet 30 TAKE ONE TABLET BY MOUTH ONCE DAILY WITH FOOD OR MILK TAKE ONE TABLET BY MOUTH ONCE DAILY WITH FOOD OR MILK SOLD: 08/23/2020 [facility] 300 mg 07/22/2020 12:00:00 AM EDT capsule 90 TAKE ONE CAPSULE BY MOUTH THREE TIMES A DAY NEEDED TAKE ONE CAPSULE BY MOUTH THREE TIMES A DAY NEEDED SOLD: 10/18/2020 [facility] 300 mg 07/22/2020 12:00:00 AM EDT capsule 90 TAKE ONE CAPSULE BY MOUTH THREE TIMES A DAY NEEDED TAKE ONE CAPSULE BY MOUTH THREE TIMES A DAY NEEDED SOLD: 08/23/2020 [facility] 300 mg 07/22/2020 12:00:00 AM EDT capsule 90 TAKE ONE CAPSULE BY MOUTH THREE TIMES A DAY NEEDED TAKE ONE CAPSULE BY MOUTH THREE TIMES A DAY NEEDED SOLD: 11/15/2020 [facility] 300 mg 07/22/2020 12:00:00 AM EDT capsule 90 TAKE ONE CAPSULE BY MOUTH THREE TIMES A DAY NEEDED TAKE ONE CAPSULE BY MOUTH THREE TIMES A DAY NEEDED SOLD: 09/21/2020 [facility] 300 mg 07/22/2020 12:00:00 AM EDT capsule 90 TAKE ONE CAPSULE BY MOUTH THREE TIMES A DAY NEEDED TAKE ONE CAPSULE BY MOUTH THREE TIMES A DAY NEEDED SOLD: 07/22/2020 [facility] 0.3 mg/0.3 mL 07/21/2020 12:00:00 AM EDT auto-injector 2 INJECT 1 INJECTION NEEDED FOR BEE STING INJECT 1 INJECTION NEEDED FOR BEE STING SOLD: 07/22/2020 [facility] Epinephrine Epinephrine 07/21/2020 12:00:00 AM EDT active [facility] ([facility]) 24 HR Bupropion Hydrochloride 300 MG Extended Release Oral T ablet BUPROPION HCL 07/09/2020 12:00:00 AM EDT tablet extended release 24 hr 30 TAKE ONE TABLET BY MOUTH EVERY MORNING TAKE ONE TABLET BY MOUTH EVERY MORNING SOLD: 07/10/2020 [facility] 24 HR Bupropion Hydrochloride 300 MG Extended Release Oral T ablet BUPROPION HCL 07/09/2020 12:00:00 AM EDT tablet extended release 24 hr 30 TAKE ONE TABLET BY MOUTH EVERY MORNING TAKE ONE TABLET BY MOUTH EVERY MORNING SOLD: 09/07/2020 [facility] 24 HR Bupropion Hydrochloride 300 MG Extended Release Oral T ablet BUPROPION HCL 07/09/2020 12:00:00 AM EDT tablet extended release 24 hr 30 TAKE ONE TABLET BY MOUTH EVERY MORNING TAKE ONE TABLET BY MOUTH EVERY MORNING SOLD: 10/05/2020 [facility] 24 HR Bupropion Hydrochloride 300 MG Extended Release Oral T ablet BUPROPION HCL 07/09/2020 12:00:00 AM EDT tablet extended release 24 hr 30 TAKE ONE TABLET BY MOUTH EVERY MORNING TAKE ONE TABLET BY MOUTH EVERY MORNING SOLD: 08/07/2020 [facility] 24 HR Bupropion Hydrochloride 300 MG Extended Release Oral T ablet BUPROPION HCL 07/09/2020 12:00:00 AM EDT tablet extended release 24 hr 30 TAKE ONE TABLET BY MOUTH EVERY MORNING TAKE ONE TABLET BY MOUTH EVERY MORNING SOLD: 11/02/2020 [facility] Losartan Potassium 50 MG Oral Tablet Losartan Potassium 07/2020 12:00:00 AM EDT ORAL active [facility] ([facility]) BLOOD-GLUCOSE METER 06/19/2020 12:00:00 AM EDT misc 1 USE TWICE A DAY FOR BLOOD SUGAR TESTING USE TWICE A DAY FOR BLOOD SUGAR TESTING SOLD: 06/19/2020 [facility] 50 mg 06/19/2020 12:00:00 AM EDT tablet 30 TAKE ONE TABLET BY MOUTH EVERY DAY TAKE ONE TABLET BY MOUTH EVERY DAY SOLD: 11/09/2020 [facility] 50 mg 06/19/2020 12:00:00 AM EDT tablet 30 TAKE ONE TABLET BY MOUTH EVERY DAY TAKE ONE TABLET BY MOUTH EVERY DAY SOLD: 09/11/2020 [facility] Blood Glucose Test Strips Premium 06/19/2020 12:00:00 AM EDT active [facility] ([facility] Blood Glucose Meter 06/19/2020 12:00:00 AM EDT active [facility] ([facility]) Lancets Micro Thin 33G 06/19/2020 12:00:00 AM EDT active [facility] ([facility]) 33 gauge 06/19/2020 12:00:00 AM EDT misc 100 USE TO TEST BLOOD SUGAR TWO TIMES A DAY USE TO TEST BLOOD SUGAR TWO TIMES A DAY SOLD: 09/25/2020 [facility] 50 mg 06/19/2020 12:00:00 AM EDT tablet 30 TAKE ONE TABLET BY MOUTH EVERY DAY TAKE ONE TABLET BY MOUTH EVERY DAY SOLD: 06/19/2020 [facility] BLOOD SUGAR DIAGNOSTIC 06/19/2020 12:00:00 AM EDT strip 50 USE TO TEST TWICE A DAY USE TO TEST TWICE A DAY SOLD: 10/14/2020 [facility] 33 gauge 06/19/2020 12:00:00 AM EDT misc 100 USE TO TEST BLOOD SUGAR TWO TIMES A DAY USE TO TEST BLOOD SUGAR TWO TIMES A DAY SOLD: 08/07/2020 [facility] 33 gauge 06/19/2020 12:00:00 AM EDT misc 100 USE TO TEST BLOOD SUGAR TWO TIMES A DAY USE TO TEST BLOOD SUGAR TWO TIMES A DAY SOLD: 11/11/2020 [facility] BLOOD SUGAR DIAGNOSTIC 06/19/2020 12:00:00 AM EDT strip 50 USE TO TEST TWICE A DAY USE TO TEST TWICE A DAY SOLD: 06/19/2020 [facility] BLOOD SUGAR DIAGNOSTIC 06/19/2020 12:00:00 AM EDT strip 50 USE TO TEST TWICE A DAY USE TO TEST TWICE A DAY SOLD: 08/05/2020 [facility] 33 gauge 06/19/2020 12:00:00 AM EDT misc 100 USE TO TEST BLOOD SUGAR TWO TIMES A DAY USE TO TEST BLOOD SUGAR TWO TIMES A DAY SOLD: 06/19/2020 [facility] 50 mg 06/19/2020 12:00:00 AM EDT tablet 30 TAKE ONE TABLET BY MOUTH EVERY DAY TAKE ONE TABLET BY MOUTH EVERY DAY SOLD: 07/17/2020 [facility] BLOOD SUGAR DIAGNOSTIC 06/19/2020 12:00:00 AM EDT strip 50 USE TO TEST TWICE A DAY USE TO TEST TWICE A DAY SOLD: 09/21/2020 [facility] BLOOD SUGAR DIAGNOSTIC 06/19/2020 12:00:00 AM EDT strip 50 USE TO TEST TWICE A DAY USE TO TEST TWICE A DAY SOLD: 08/28/2020 [facility] 50 mg 06/19/2020 12:00:00 AM EDT tablet 30 TAKE ONE TABLET BY MOUTH EVERY DAY TAKE ONE TABLET BY MOUTH EVERY DAY SOLD: 10/11/2020 [facility] BLOOD SUGAR DIAGNOSTIC 06/19/2020 12:00:00 AM EDT strip 50 USE TO TEST TWICE A DAY USE TO TEST TWICE A DAY SOLD: 07/13/2020 [facility] 40 mg 04/22/2020 12:00:00 AM EDT tablet 45 TAKE ONE AND ONE-HALF TABLETS BY MOUTH EVERY DAY TAKE ONE AND ONE-HALF TABLETS BY MOUTH EVERY DAY SOLD: 07/17/2020 [facility] 40 mg 04/22/2020 12:00:00 AM EDT tablet 45 TAKE ONE AND ONE-HALF TABLETS BY MOUTH EVERY DAY TAKE ONE AND ONE-HALF TABLETS BY MOUTH EVERY DAY SOLD: 05/22/2020 [facility] 40 mg 04/22/2020 12:00:00 AM EDT tablet 45 TAKE ONE AND ONE-HALF TABLETS BY MOUTH EVERY DAY TAKE ONE AND ONE-HALF TABLETS BY MOUTH EVERY DAY SOLD: 04/24/2020 [facility] 40 mg 04/22/2020 12:00:00 AM EDT tablet 45 TAKE ONE AND ONE-HALF TABLETS BY MOUTH EVERY DAY TAKE ONE AND ONE-HALF TABLETS BY MOUTH EVERY DAY SOLD: 06/19/2020 [facility] 40 mg 04/22/2020 12:00:00 AM EDT tablet 45 TAKE ONE AND ONE-HALF TABLETS BY MOUTH EVERY DAY TAKE ONE AND ONE-HALF TABLETS BY MOUTH EVERY DAY SOLD: 09/11/2020 [facility] 40 mg 04/08/2020 12:00:00 AM EDT tablet 30 TAKE ONE TABLET BY MOUTH EVERY DAY TAKE ONE TABLET BY MOUTH EVERY DAY SOLD: 04/08/2020 [facility] 40 mg 02/06/2020 12:00:00 AM EDT tablet 30 TAKE ONE TABLET BY MOUTH EVERY DAY TAKE ONE TABLET BY MOUTH EVERY DAY SOLD: 02/07/2020 [facility] 40 mg 02/06/2020 12:00:00 AM EDT tablet 30 TAKE ONE TABLET BY MOUTH EVERY DAY TAKE ONE TABLET BY MOUTH EVERY DAY SOLD: 04/08/2020 [facility] 40 mg 02/06/2020 12:00:00 AM EDT tablet 30 TAKE ONE TABLET BY MOUTH EVERY DAY TAKE ONE TABLET BY MOUTH EVERY DAY SOLD: 06/03/2020 [facility] 40 mg 02/06/2020 12:00:00 AM EDT tablet 30 TAKE ONE TABLET BY MOUTH EVERY DAY TAKE ONE TABLET BY MOUTH EVERY DAY SOLD: 05/05/2020 [facility] 40 mg 02/06/2020 12:00:00 AM EDT tablet 30 TAKE ONE TABLET BY MOUTH EVERY DAY TAKE ONE TABLET BY MOUTH EVERY DAY SOLD: 07/01/2020 [facility] 40 mg 02/06/2020 12:00:00 AM EDT tablet 30 TAKE ONE TABLET BY MOUTH EVERY DAY TAKE ONE TABLET BY MOUTH EVERY DAY SOLD: 07/29/2020 [facility] 15 mg 01/15/2020 12:00:00 AM EDT tablet 30 TAKE ONE TABLET BY MOUTH ONCE DAILY WITH FOOD OR MILK TAKE ONE TABLET BY MOUTH ONCE DAILY WITH FOOD OR MILK SOLD: 04/02/2020 [facility] 15 mg 01/15/2020 12:00:00 AM EDT tablet 30 TAKE ONE TABLET BY MOUTH ONCE DAILY WITH FOOD OR MILK TAKE ONE TABLET BY MOUTH ONCE DAILY WITH FOOD OR MILK SOLD: 03/06/2020 [facility] 300 mg 01/15/2020 12:00:00 AM EDT capsule 90 TAKE 1 CAPSULE BY MOUTH 3 TIMES A DAY MAX DAILY DOSE = 3 CAPSULES TAKE 1 CAPSULE BY MOUTH 3 TIMES A DAY MA X DAILY DOSE = 3 CAPSULES SOLD: 01/15/2020 [facility] 300 mg 01/15/2020 12:00:00 AM EDT tablet extended release 24 hr 30 TAKE ONE TABLET BY MOUTH EVERY MORNING TAKE ONE TABLET BY MOUTH EVERY MORNING SOLD: 05/15/2020 [facility] 15 mg 01/15/2020 12:00:00 AM EDT tablet 30 TAKE ONE TABLET BY MOUTH ONCE DAILY WITH FOOD OR MILK TAKE ONE TABLET BY MOUTH ONCE DAILY WITH FOOD OR MILK SOLD: 04/30/2020 [facility] 300 mg 01/15/2020 12:00:00 AM EDT tablet extended release 24 hr 30 TAKE ONE TABLET BY MOUTH EVERY MORNING TAKE ONE TABLET BY MOUTH EVERY MORNING SOLD: 04/16/2020 [facility] 300 mg 01/15/2020 12:00:00 AM EDT tablet extended release 24 hr 30 TAKE ONE TABLET BY MOUTH EVERY MORNING TAKE ONE TABLET BY MOUTH EVERY MORNING SOLD: 01/15/2020 [facility] 15 mg 01/15/2020 12:00:00 AM EDT tablet 30 TAKE ONE TABLET BY MOUTH ONCE DAILY WITH FOOD OR MILK TAKE ONE TABLET BY MOUTH ONCE DAILY WITH FOOD OR MILK SOLD: 06/26/2020 [facility] 300 mg 01/15/2020 12:00:00 AM EDT tablet extended release 24 hr 30 TAKE ONE TABLET BY MOUTH EVERY MORNING TAKE ONE TABLET BY MOUTH EVERY MORNING SOLD: 03/19/2020 [facility] 300 mg 01/15/2020 12:00:00 AM EDT tablet extended release 24 hr 30 TAKE ONE TABLET BY MOUTH EVERY MORNING TAKE ONE TABLET BY MOUTH EVERY MORNING SOLD: 06/12/2020 [facility] 40 mg 01/15/2020 12:00:00 AM EDT tablet 30 TAKE ONE TABLET BY MOUTH EVERY DAY TAKE ONE TABLET BY MOUTH EVERY DAY SOLD: 01/15/2020 [facility] 15 mg 01/15/2020 12:00:00 AM EDT tablet 30 TAKE ONE TABLET BY MOUTH ONCE DAILY WITH FOOD OR MILK TAKE ONE TABLET BY MOUTH ONCE DAILY WITH FOOD OR MILK SOLD: 05/28/2020 [facility] 300 mg 01/15/2020 12:00:00 AM EDT tablet extended release 24 hr 30 TAKE ONE TABLET BY MOUTH EVERY MORNING TAKE ONE TABLET BY MOUTH EVERY MORNING SOLD: 02/21/2020 [facility] 15 mg 01/15/2020 12:00:00 AM EDT tablet 30 TAKE ONE TABLET BY MOUTH ONCE DAILY WITH FOOD OR MILK TAKE ONE TABLET BY MOUTH ONCE DAILY WITH FOOD OR MILK SOLD: 01/15/2020 [facility] 4 mg 11/19/2019 12:00:00 AM EST tablet 90 TAKE ONE TABLET BY MOUTH THREE TIMES A DAY NEEDED MAXIMUM DAILY DOSE = 3 TAKE ONE TABLET BY MOUTH THREE TIMES A DAY NEEDED MAXIMUM DAILY DOSE = 3 SOLD: 11/20/2019 [facility] 15 mg 10/19/2019 12:00:00 AM EST tablet 14 TAKE 1 TABLET BY MOUTH EVERY DAY WITH FOOD OR MILK TAKE 1 TABLET BY MOUTH EVERY DAY WITH FOOD OR MILK NATHEN [facility] 12 % 10/17/2019 12:00:00 AM EST lotion 225 APPLY TO ARMS, HANDS, BACK, LEGS, AND FEET DAILY APPLY TO ARMS, HANDS, BACK, LEGS, AND FEET DAILY SOLD: 10/18/2019 [facility] Simvastatin 40 MG Oral Tablet SIMVASTATIN 10/17/2019 12:00:00 AM EST tablet 30 TAKE 1 TABLET BY MOUTH DAILY TAKE 1 TABLET BY MOUTH DAILY SOLD: 01/05 [facility] Simvastatin 40 MG Oral Tablet SIMVASTATIN 10/17/2019 12:00:00 AM EST tablet 30 TAKE 1 TABLET BY MOUTH DAILY TAKE 1 TABLET BY MOUTH DAILY SOLD: 10/18 [facility] 300 mg 10/17/2019 12:00:00 AM EST capsule 90 TAKE ONE CAPSULE BY MOUTH THREE TIMES A DAY TAKE ONE CAPSULE BY MOUTH THREE TIMES A DAY SOLD: 10/18/2019 [facility] 300 mg 10/17/2019 12:00:00 AM EST tablet extended release 24 hr 30 TAKE ONE TABLET BY MOUTH EVERY MORNING TAKE ONE TABLET BY MOUTH EVERY MORNING SOLD: 10/18/2019 [facility] 40 mg 10/17/2019 12:00:00 AM EST tablet 30 TAKE 1 TABLET BY MOUTH DAILY TAKE 1 TABLET BY MOUTH DAILY SOLD: 11/15/2019 [facility] 12 % 10/17/2019 12:00:00 AM EST lotion 225 APPLY TO ARMS, HANDS, BACK, LEGS, AND FEET DAILY APPLY TO ARMS, HANDS, BACK, LEGS, AND FEET DAILY SOLD: 12/04/2019 [facility] Simvastatin 40 MG Oral Tablet SIMVASTATIN 10/17/2019 12:00:00 AM EST tablet 30 TAKE 1 TABLET BY MOUTH DAILY TAKE 1 TABLET BY MOUTH DAILY SOLD: 11/15 [facility] 300 mg 10/17/2019 12:00:00 AM EST capsule 90 TAKE ONE CAPSULE BY MOUTH THREE TIMES A DAY TAKE ONE CAPSULE BY MOUTH THREE TIMES A DAY SOLD: 11/15/2019 [facility] 40 mg 10/17/2019 12:00:00 AM EST tablet 30 TAKE 1 TABLET BY MOUTH DAILY TAKE 1 TABLET BY MOUTH DAILY SOLD: 10/18/2019 [facility] 300 mg 10/17/2019 12:00:00 AM EST tablet extended release 24 hr 30 TAKE ONE TABLET BY MOUTH EVERY MORNING TAKE ONE TABLET BY MOUTH EVERY MORNING SOLD: 11/15/2019 [facility] ammonium lactate 120 MG/ML Topical Lotion Ammonium Lactate 10/16/2019 12:00:00 AM EST active [facility] ([facility]) 300 mg 10/05/2019 12:00:00 AM EST tablet extended release 24 hr 14 TAKE ONE TABLET BY MOUTH EVERY MORNING TAKE ONE TABLET BY MOUTH EVERY MORNING SOLD: 10/07/2019 [facility] Simvastatin 40 MG Oral Tablet SIMVASTATIN 10/05/2019 12:00:00 AM EST tablet 14 TAKE 1 TABLET BY MOUTH DAILY TAKE 1 TABLET BY MOUTH DAILY SOLD: 10/07 [facility] 300 mg 10/05/2019 12:00:00 AM EST capsule 42 TAKE ONE CAPSULE BY MOUTH THREE TIMES A DAY TAKE ONE CAPSULE BY MOUTH THREE TIMES A DAY SOLD: 10/07/2019 [facility] 10 mg 10/05/2019 12:00:00 AM EST tablet 14 TAKE 1 TABLET BY MOUTH EVERY DAY TAKE 1 TABLET BY MOUTH EVERY DAY SOLD: 10/07/2019 [facility] 40 mg 10/05/2019 12:00:00 AM EST tablet 14 TAKE 1 TABLET BY MOUTH DAILY TAKE 1 TABLET BY MOUTH DAILY SOLD: 10/07/2019 [facility] 4 mg 09/24/2019 12:00:00 AM EST tablet 90 TAKE ONE TABLET BY MOUTH THREE TIMES A DAY NEEDED MAXIMUM DAILY DOSE = 3 TAKE ONE TABLET BY MOUTH THREE TIMES A DAY NEEDED MAXIMUM DAILY DOSE = 3 SOLD: 10/23/2019 [facility] 15 mg 07/02/2019 12:00:00 AM EDT tablet 30 TAKE ONE TABLET BY MOUTH EVERY DAY WITH FOOD OR MILK TAKE ONE TABLET BY MOUTH EVERY DAY WITH FOOD OR MILK S OLD: 11/01/2019 [facility] 15 mg 07/02/2019 12:00:00 AM EDT tablet 30 TAKE ONE TABLET BY MOUTH EVERY DAY WITH FOOD OR MILK TAKE ONE TABLET BY MOUTH EVERY DAY WITH FOOD OR MILK S OLD: 11/29/2019 [facility] Insurance Providers Payer name Policy type / Coverage type Policy ID Covered libertarian ID Covered libertarian's relationship to andersen Policy [employer] Plan Information [facility] [id number] SP [id number] [facility] COMMUNTY PLAN [id number] 18 [id number] [facility] XIX [id number] 18 [id number] [facility]) O [id number] S [id number] [facility] [id number] SP [id number] [facility]) O [id number] S [id number] [facility] [id number] SP [id number] [facility]) O [id number] S [id number] [facility] COMMUNTY PLAN [id number] 18 [id number] [employer] P [id number] [id number] [employer] Workers Compensation [id number] Self [id number] BS [place] Medigap Part B [id number] [facility] Community Plan Commercial [id number] Self [id number] [facility] Community Plan Medigap Part B [id number] Self [id number] [facility] Ins Fund () Workers Compensation [id number] Self [id number] [employer] BCYO P [id number] VYA [id number] [employer] Workers Compensation [id number] Self [id number] BS [place] Medigap Part B [id number] [facility] Community Plan Commercial [id number] Self [id number] Medicaid Commercial [id number] Self [id number] SELF PAY ONLY [id number] SP [id number] [facility] [id number] SP [id number] [facility] [id number] [employer] Workers Compensation [id number] Self [id number] BS [place] Medigap Part B [id number] [facility] Community Plan Commercial [id number] Self [id number] [employer] Workers Compensation [id number] Self [id number] BS [place] Medigap Part B [id number] [facility] Community Plan Commercial [id number] Self [id number] [employer] [facility] MCDO [id number] SP [id number] [facility] [employer] [employer] XIX [id number] 18 [id number] [facility] Communty Plan Medicaid [id number] Self [id number] [employer] Workers Compensation [id number] Self [id number] BS [place] Medigap Part B [id number] [facility] Community Plan Commercial [id number] Self [id number] [facility] O [id number] S [id number] [place] [id number] [employer] Workers Compensation [id number] Self [id number] BS [place] Medigap Part B [id number] [facility] Community Plan Commercial [id number] Self [id number] [employer] Workers Compensation [id number] Self [id number] BS [place] Medigap Part B [id number] [facility] Community Plan Commercial [id number] Self [id number] [facility] [employer] [employer] MCDHMO [id number] SP [id number] [employer] Workers Compensation [id number] Self [id number] BS [place] Medigap Part B [id number] [employer] Workers Compensation [id number] Self [id number] BS [place] Medigap Part B [id number] [place] [id number] Self [id number] Medicaid Commercial [id number] Self [id number] [employer] Workers Compensation [id number] Self [id number] BS [place] Medigap Part B [id number] [facility] Community Plan Commercial [id number] Self [id number] [employer] Workers Compensation [id number] Self [id number] BS [place] Medigap Part B [id number] [employer] Workers Compensation [id number] Self [id number] BS [place] Medigap Part B [id number] [employer] Compensation [id number] Self [id number] BS [place] Med[employer] Part B [id number] [employer] Workers Compensation [id number] Self [id number] BS [place] Medig[employer] Part B [id number] [employer] Workers Compensation [id number] Self [id number] BS [place] Med[employer] Part B [id number] [employer] Workers Compensation [id number] Self [id number] BS [place] Medigap Part B [id number] [facility] Plan Commercial [id number] Self [id number] [employer] Workers Compensation [id number] Self [id number] BS [place] Medigap Part B [id number] [facility] Plan Commercial [id number] Self [id number] [employer] Compensation [id number] Self [id number] BS [place] Medigap Part B [id number] [facility] Plan Commercial [id number] Self [id number] [employer] Compensation [id number] Self [id number] BS [place] Medigap Part B [id number] [facility] Plan Commercial [id number] Self [id number] [employer] Compensation [id number] Self [id number] BS [place] Medigap Part B [id number] [facility] Plan Commercial [id number] Self [id number] [employer] Compensation [id number] Self [id number] BS [place] Medigap Part B [id number] [facility] Community Plan Commercial [id number] Self [id number] [employer] Compensation [id number] Self [id number] BS [place] Medigap Part B [id number] [facility] Community Plan Commercial [id number] Self [id number] [employer] Compensation [id number] Self [id number] BS [place] Medigap Part B [id number] [facility] Community Plan Commercial [id number] Self [id number] [employer] MCDO [id number] SP [id number] [employer] MCDO [id number] SP [id number] MEDICAID M [id number] S [id number] MEDICAID [id number] SP [id number] BCBS [place] PPO [id number] [employer] [place] [id number] SPO VYA [id number] Sliding Fee Scale S [id number] S [id number] Problems, Conditions, and Diagnoses Code Display Name Description Problem Type Effective Dates Data Source(s) 25388180 Essential hypertension Essential hypertension Problem 08/04/2020 12:00:00 AM EDT [facility] ([facility], ) 27752201 Essential hypertension Essential hypertension Problem 08/04/2020 12:00:00 AM EDT [facility] ([facility]) Other allergy, subsequent encounter Other allerg y, subsequent encounter Problem 04/22/2020 12:00:00 AM EDT [facility]) 6078440 Ex-smoker Ex-smoker Problem 04/22/2020 12:00:00 AM ED T [facility] ([facility]) 11854805 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 Pr oblem 04/22/2020 12:00:00 AM EDT [facility] ([facility]) 779069020 Lumbar radiculopathy Lumbar radiculopathy Problem 04/22/2020 12:00:00 AM EDT [facility] ([facility]) 468790798 Spondylolisthesis L5/S1 level Spondylolisthesis L5/S1 level Problem 04/22/2020 12:00:00 AM EDT [facility] ([facility]) 49608190 Degeneration of lumbar intervertebral di sc Degeneration of lumbar intervertebral disc Problem 04/22/2020 12:00:00 AM EDT [facility] ([facility]) 005724284 Screening for malignant neoplasm of colo n Screening for malignant neoplasm of colon Problem 04/22/2020 12:00:00 AM EDT [facility] ([facility]) 196563676 Renal function tests abnormal Renal function tests abn ormal Problem 04/22/2020 12:00:00 AM EDT [facility] ([facility]) 910440007 Taking medication Taking medication Problem 04/22 12:00:00 AM EDT [facility] ([facility]) [id number] Pure hypercholesterolemia Pure hypercholesterolemia Pr oblem 04/22/2020 12:00:00 AM EDT [facility] ([facility]) 81902730 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 Problem 04/22/2020 12:00:00 AM EDT [facility]) R944 Abnormal results of kidney function stud ies Abnormal results of kidney function studies Diagnosis 10/14/2020 08:55:00 AM [facility] N32690 Other mcfp (current) drug therapy O ther mcfp (current) drug therapy Diagnosis 10/14/2020 08:55:00 AM [facility] E7800 Pure hypercholesterolemia, unspecified P ure hypercholesterolemia, unspecified Diagnosis 10/14/2020 08:55:00 AM [facility] E8342 Hypomagnesemia Hypomagnesemia Diagnosis 10/14/2020 08:55: 00 AM [facility] I700 Atherosclerosis of aorta Atherosclerosis of aorta Diag nosis 07/21/2020 12:51:00 PM EDT [facility] E278 Other specified disorders of adrenal gla nd Other specified disorders of adrenal gland Diagnosis 07/21/2020 12:51:00 PM EDT [facility] E162 Hypoglycemia, unspecified Hypoglycemia, unspecified Di agnosis 07/21/2020 12:51:00 PM EDT [facility] I10 Essential (primary) hypertension Essential (primary) h ypertension Diagnosis 07/21/2020 12:51:00 PM EDT [facility] M5416 Radiculopathy, lumbar region Radiculopathy, lumbar reg ion Diagnosis 10/16/2019 09:20:00 AM [facility] M4317 Spondylolisthesis, lumbosacral region Sp ondylolisthesis, lumbosacral region Diagnosis 10/16/2019 09:20:00 AM [facility] M5136 Other intervertebral disc degeneration, lumbar region Other intervertebral disc degeneration, lumbar region Diagnosis 10/16/2019 09:20:00 AM [facility] Surgeries/Procedures Procedure Description Date Indications Data Source(s) Physical Therapy Eval - Low Complexity 09/19/2020 12:0 0:00 AM EST [facility] ([facility] ) RADEX SPINE LUMBOSACRAL 2/3 VIEWS 08/29/2020 12:00:00 AM EST [facility] ([facility] ) Admin Patient Focused Health Risk Assessment Instrument 04/22/2020 12:00:00 AM EDT [facility] ([facility]) X-Ray Spine Lumbosacral Complete Inc Bending Views Min Of 6 01/15/2020 12:00:00 AM EDT [facility] ([facility] ) Brief Emotional/Behav Assessment W/ Scoring Doc Per Standard Inst 10/16/2019 12:00:00 AM EST [facility] ([facility]) Results ID Date Data Source [id number] 11/25/2020 09:15:00 AM EST [facility] ([facility], ) Name Value Range Interpretation Code Description Data Annelise rce(s) Supporting Document(s) Glucose, Fasting 86 mg/dL 70-100 Normal (applies to non-numeric results) [facility] ([facility], ) Blood Urea Nitrogen 23 mg/dL 7-18 Above high normal [facility] Creatinine For GFR 1.05 mg/dL 0.70-1.30 Normal (applies to non -numeric results) [facility] ([facility], ) Sodium Level 140 meq/L 136-145 Normal (applies to non-numeric res ults) [facility] ([facility], ) Potassium Serum 3.7 meq/L 3.5-5.1 Normal (applies to non-numeric results) [facility] ([facility]) Glomerular Filtration Rate Laboratory test result Normal (applies to non- numeric results) [facility]) <content>Units are mL/min/1.73 m2</content>
<content></content>
<content>Chronic Kidney Disease Staging per NKF:</content>
<content></content>
<content>Stage I & II GFR >=60 Normal to Mildly Decreased</content>
<content>Stage III GFR 30- 59 Moderately Decreased</content>
<content>Stage IV GFR 15-29 Severely Decreased</content>
<content>Stage V GFR <15 Very Little GFR Left</content>
<content>ESRD GFR <15 on [employer]</content>
<content></content> Anion Gap 7 meq/L 8-16 Below low normal [facility] ( [facility]) Carbon Dioxide Level 28 meq/L 21-32 Normal (applies to non-num cherelle results) [facility] ([facility]) Chloride Level 105 meq/L 98-107 Normal (applies to non-numeric r esults) [facility]) Calcium Level 9.1 mg/dL 8.5-10.1 Normal (applies to non-numeric re sults) [facility]) ID Date Data Source [id number] 11/25/2020 09:15:00 AM EST [facility]) Name Value Range Interpretation Code Description Data Annelise rce(s) Supporting Document(s) White Blood Count 6.1 10 4.0-10.0 Normal (applies to non-numeri c results) [facility]) Hemoglobin 14.1 g/dL 13.5-17.5 Normal (applies to non-numeric resul ts) [facility]) Red Blood Count 4.66 10 4.30-6.10 Normal (applies to non-numeric results) [facility]) Mean Corpuscular Hemoglobin 30.3 pg 27.0-33.0 Norm al (applies to non-numeric results) [facility]) Hematocrit 43.2 % 42.0-52.0 Normal (applies to non-numeric resul ts) [facility] ([facility]) Mean Corpuscular Volume 92.7 fl 80.0-96.0 Normal ( applies to non-numeric results) [facility]) Mean Corpuscular HGB Conc 32.6 g/dL 32.0-36.5 Normal (applies to non-numeric results) [facility]) Platelet Count, Automated 216 10 150-450 Normal (applies to non-numeric results) [facility]) Red Cell Distribution Width 13.4 % 11.5-14.5 Norm al (applies to non-numeric results) [facility] ([facility]) Nucleated Red Blood Cell % 0.0 % 0-0 Normal (applies to n on-numeric results) [facility]) ID Date Data Source [id number] 11/25/2020 09:15:00 AM EST [facility]) Name Value Range Interpretation Code Description Data Annelise rce(s) Supporting Document(s) Glucose, Fasting 86 mg/dL 70-100 Normal (applies to non-numeric results) [facility] ([facility]) Blood Urea Nitrogen 23 mg/dL 7-18 Above high normal [facility] ([facility]) Glomerular Filtration Rate Laboratory test result Normal (applies to non- numeric results) [facility]) <content>Units are mL/min/1.73 m2</content>
<content></content>
<content>Chronic Kidney Disease Staging per NKF:</content>
<content></content>
<content>Stage I & II GFR >=60 Normal to Mildly Decreased</content>
<content>Stage III GFR 30- 59 Moderately Decreased</content>
<content>Stage IV GFR 15-29 Severely Decreased</content>
<content>Stage V GFR <15 Very Little GFR Left</content>
<content>ESRD GFR <15 on [employer]</content>
<content></content> Creatinine For GFR 1.05 mg/dL 0.70-1.30 Normal (applies to non -numeric results) [facility] ([facility]) Chloride Level 105 meq/L 98-107 Normal (applies to non-numeric r esults) [facility] ([facility]) Potassium Serum 3.7 meq/L 3.5-5.1 Normal (applies to non-numeric results) [facility] ([facility]) Sodium Level 140 meq/L 136-145 Normal (applies to non-numeric res ults) [facility] ([facility]) Carbon Dioxide Level 28 meq/L 21-32 Normal (applies to non-num cherelle results) [facility] ([facility]) Calcium Level 9.1 mg/dL 8.5-10.1 Normal (applies to non-numeric re sults) [facility] ([facility]) Anion Gap 7 meq/L 8-16 Below low normal [facility] ( [facility]) ID Date Data Source [id number] 11/25/2020 09:15:00 AM EST [facility] ([facility]) Name Value Range Interpretation Code Description Data Annelise rce(s) Supporting Document(s) Red Blood Count 4.66 10 4.30-6.10 Normal (applies to non-numeric results) [facility] ([facility]) Hemoglobin 14.1 g/dL 13.5-17.5 Normal (applies to non-numeric resul ts) [facility] ([facility]) White Blood Count 6.1 10 4.0-10.0 Normal (applies to non-numeri c results) [facility] ([facility]) Mean Corpuscular Volume 92.7 fl 80.0-96.0 Normal ( applies to non-numeric results) [facility] ([facility]) Hematocrit 43.2 % 42.0-52.0 Normal (applies to non-numeric resul ts) [facility] ([facility]) Mean Corpuscular Hemoglobin 30.3 pg 27.0-33.0 Norm al (applies to non-numeric results) [facility] ([facility]) Red Cell Distribution Width 13.4 % 11.5-14.5 Norm al (applies to non-numeric results) [facility] ([facility]) Mean Corpuscular HGB Conc 32.6 g/dL 32.0-36.5 Normal (applies to non-numeric results) [facility] ([facility]) Nucleated Red Blood Cell % 0.0 % 0-0 Normal (applies to n on-numeric results) [facility] ([facility]) Platelet Count, Automated 216 10 150-450 Normal (applies to non-numeric results) [facility] ([facility]) ID Date Data Source [id number] 10/17/2020 09:19:00 PM [facility] Name Value Range Interpretation Code Description Data Annelise rce(s) Supporting Document(s) Borrelia burgdorferi IgG+IgM Ab [Units/volume] in Serum <0.91 ISR 0. 00-0.90 [facility] Negative <0.91 Equivocal 0.91 - 1.09 Positive >1.09 Borrelia burgdorferi IgM Ab [Units/volume] in Serum by Immun oassay <0.80 index 0.00-0.79 [facility] Negative <0.80 Equivocal 0.80 - 1.19 Positive >1.19 IgM levels may peak at 3-6 weeks post infection, then gradually decline. ID Date Data Source [id number] 10/14/2020 07:09:00 PM [facility] Name Value Range Interpretation Code Description Data Annelise rce(s) Supporting Document(s) CVE PANEL [facility] LIPID PANEL Cholesterol [Mass/volume] in Serum or Plasma 201 MG/DL 131 - 200 H [facility] Deprecated Triglyceride [Mass/volume] in Serum or Plasma 180 MG/DL 3 5 - 160 H [facility] HDL 39 MG/DL 29 - 86 [facility] Cholesterol in LDL [Mass/volume] in Serum or Plasma by Direc t assay 123 mg/dL 65 - 175 [facility] Cholesterol.total/Cholesterol in HDL [Mass Ratio] in Serum o r Plasma 5.2 3.4 - 4.9 H [facility] LDL/HDL 3.15 1.00 - 3.55 [facility] CVE RISK CHOL/HDL LDL/HDLMEN: 1/2 AVERAGE 3.43 1.00 AVERAGE 4.97 3.55 2X AVERAGE 9.55 6.25 3X AVERAGE 23.99 7.99WOMEN: 1/2 AVERAGE 3.27 1.47 AVERAGE 4.44 3.22 2X AVERAGE 7.05 5.03 3X AVERAGE 11.04 6.14 ID Date Data Source [id number] 10/14/2020 07:09:00 PM EST [facility] Name Value Range Interpretation Code Description Data Annelise rce(s) Supporting Document(s) COMPREHENSIVE METABOLIC PANEL [facility] COMPREHENSIVE METABOLIC PANEL Sodium [Moles/volume] in Serum or Plasma 139 mEq/L 134 - 153 [facility] Potassium [Moles/volume] in Serum or Plasma 4.1 mEq/L 3.6 - 5.0 [facility] Chloride [Moles/volume] in Serum or Plasma 103 mEq/L 98 - 107 [facility] Carbon dioxide, total [Moles/volume] in Serum or Plasma 27 MEQ/L 22 - 30 [facility] Glucose [Mass/volume] in Serum or Plasma 94 MG/DL 65 - 110 [facility] BUN 21 MG/DL 7 - 21 [facility] Creatinine [Mass/volume] in Serum or Plasma 0.9 MG/DL 0.7 - 1.5 [facility] BUN/CREAT 23 8 - 27 [facility] Protein [Mass/volume] in Serum or Plasma 5.9 G/DL 6.3 - 8.2 L [facility] Albumin [Mass/volume] in Serum or Plasma 4.2 G/DL 3.9 - 5.0 [facility] Globulin [Mass/volume] in Serum by calculation 1.7 GM/DL 2.4 - 3.2 L [facility] A/G RATIO 2.5 0.8 - 2.0 H [facility] Calcium [Mass/volume] in Serum or Plasma 9.0 MG/DL 8.4 - 10.2 [facility] Bilirubin.total [Mass/volume] in Serum or Plasma <0.7 MG/DL 0.2 - 1.3 [facility] Alkaline phosphatase [Enzymatic activity/volume] in Serum or Plasma 104 U/L 38 - 126 [facility] Aspartate aminotransferase [Enzymatic activity/volume] in Serum or Plasma 23 U/L 5 - 40 [facility] Alanine aminotransferase [Enzymatic activity/volume] in Seru m or Plasma 22 U/L 7 - 56 [facility] Anion gap 3 in Serum or Plasma 9.0 mmol/L 8.0 - 16.0 [facility] AGE [address] [facility] NON-AA GFR >60 mL/min [facility] AFR AMER GFR >60 mL/min [facility] Male GFR In terprentation 20-49 yrs >60 mL/min Normal 50-59 yrs >56 mL/min Normal 60-69 yrs >49 mL/min Normal 70-79yrs >42 mL/min Normal 80 and above >35 mL/min Normal Female GFR Interpretation 20-39 yrs >60 mL/min Normal 40-49 yrs >58 mL/min Normal 50-59 yrs >51 mL/min Normal 60-69 yrs >45 mL/min Normal 70-79 yrs >39 mL/min Normal 80 and above >32 mL/min Normal ID Date Data Source [id number] 10/14/2020 06:51:00 PM [facility] Name Value Range Interpretation Code Description Data Annelise rce(s) Supporting Document(s) Prostate specific Ag [Mass/volume] in Serum or Plasma 0.58 ng/mL 0.00 - 4.00 [facility] \\BLDo\\PSA INTERPRETA TION\\BLDx\\ The PSA assay should not be used alone for a screening test or diagnosis for presence or absence of malignant disease. Predictions of disease recurrence should not be based solely on values obtained from serial patient serum values. The PSA result was determined by "[employer]", on the Cathryn ERIC 6000. Values obtained with different assay methods or kits cannot be used interchangeably. ID Date Data Source [id number] 10/14/2020 06:51:00 PM [facility] Name Value Range Interpretation Code Description Data Annelise rce(s) Supporting Document(s) Thyrotropin [Units/volume] in Serum or Plasma by Detec tion limit <= 0.05 mIU/L 2.86 uIU/mL 0.47 - 5.01 [facility] ID Date Data Source [id number] 10/14/2020 06:47:00 PM [facility] Name Value Range Interpretation Code Description Data Annelise e(s) Supporting Document(s) Hemoglobin A1c/Hemoglobin.total in Blood 5.3 % 4.4 - 6.1 [facility] {A1]{HB] ID Date Data Source [id number] 10/14/2020 06:18:00 PM [facility] Name Value Range Interpretation Code Description Data Annelise rce(s) Supporting Document(s) CBC W/AUTOMATED DIFF [facility] COMPLETE BLOOD COUNT Leukocytes [#/volume] in Blood by Automated count 6.4 10^3/uL 4.2 - 1 1.0 [facility] Erythrocytes [#/volume] in Blood by Automated count 4.40 10^6/uL 4. 50 - 6.30 L [facility] Hemoglobin [Mass/volume] in Blood 13.5 g/dL 14.0 - 16.0 L [facility] Hematocrit [Volume Fraction] of Blood by Automated count 42.1 % 4 1.0 - 51.0 [facility] Erythrocyte mean corpuscular volume [Entitic volume] by Auto mated count 95.7 fL 80.0 - 94.0 H [facility] Erythrocyte mean corpuscular hemoglobin [Entitic mass] by Automated count 30.7 pg 27.0 - 34.0 [facility] Erythrocyte mean corpuscular hemoglobin concentration [Mass/volume] by Automated count 32.1 g/dL 31.0 - 36.0 [facility] Erythrocyte distribution width [Ratio] by Automated count 13.2 % 11.5 - 14.8 [facility] Platelets [#/volume] in Blood by Automated count 243 10^3/uL 150 - 45 0 [facility] Platelet mean volume [Entitic volume] in Blood by Automated count 11.0 fL 7.4 - 10.4 H [facility] Neutrophils/100 leukocytes in Blood by Automated count 60.6 % 37. 0 - 80.0 [facility] Lymphocytes/100 leukocytes in Blood by Manual count 23.1 % 25.0 - 40.0 L [facility] Monocytes/100 leukocytes in Blood by Automated count 13.0 % 3.0 - 8.0 H [facility] Eosinophils/100 leukocytes in Blood by Automated count 2.2 % 0.0 - 7.0 [facility] Basophils/100 leukocytes in Blood by Automated count 0.6 % 0.0 - 2.0 [facility] %IG 0.5 % 0.0 - 0.[address] [facility] %NRBC 0.0 % 0.0 - 0.0 [facility] Neutrophils [#/volume] in Blood by Automated count 3.88 10^3/uL 2.00 - 6.90 [facility] Lymphocytes [#/volume] in Blood by Automated count 1.48 10^3/uL 0.60 - 3.40 [facility] Monocytes [#/volume] in Blood by Automated count 0.83 10^3/uL 0.00 - 0.90 [facility] Eosinophils [#/volume] in Blood by Automated count 0.14 10^3/uL 0.00 - 0.70 [facility] Basophils [#/volume] in Blood by Automated count 0.04 10^3/uL 0.00 - 0.20 [facility] #IG 0.03 10^3/uL 0.00 - 0.10 [facility] #NRBC 0.00 10^3/uL 0.00 - 0.00 [facility] MANUAL DIFF NOT INDICATED [facility] RBC MORPH NOT INDICATED [facility] ID Date Data Source [id number] 10/14/2020 09:00:00 AM EST [facility]) Name Value Range Interpretation Code Description Data Annelise rce(s) Supporting Document(s) Prostate specific Ag [Mass/volume] in Serum or Plasma 0.58 ng/mL 0.00 -4.00 [facility] ([facility]) Is patient fasting? N ID Date Data Source [id number] 10/14/2020 09:00:00 AM EST [facility] ([facility]) Name Value Range Interpretation Code Description Data Annelise rce(s) Supporting Document(s) Lyme IgG/IgM Ab Laboratory test result 0.00-0.90 [facility] ([facility]) Is patient fasting? N Lyme Disease Ab, Quant,IgM Laboratory test result 0.00-0.79 [facility] ([facility]) Is patient fasting? N ID Date Data Source [id number] 10/14/2020 09:00:00 AM EST [facility] ([facility]) Name Value Range Interpretation Code Description Data Annelise rce(s) Supporting Document(s) Thyrotropin [Units/volume] in Serum or Plasma 2.86 uIU/mL 0.47-5.01 [facility] ([facility]) Is patient fasting? N ID Date Data Source [id number] 10/14/2020 09:00:00 AM EST [facility] ([facility]) Name Value Range Interpretation Code Description Data Annelise rce(s) Supporting Document(s) Cve Panel Laboratory test result [facility] ([facility]) Is patient fasting? N Cholesterol 201 mg/dL 131-200 Above high normal [facility] ([facility]) Is patient fasting? N Triglycerides 180 mg/dL 35-160 Above high normal [facility] ([facility]) Is patient fasting? N HDL 39 mg/dL 29-86 [facility] ([facility]) Is patient fasting? N LDL 123 mg/dL 65-175 [facility] ([facility]) Is patient fasting? N Risk Factor 5.2 3.4-4.9 Above high normal [facility] ([facility]) Is patient fasting? N LDL/HDL 3.15 1.00-3.55 [facility] ([facility]) Is patient fasting? N ID Date Data Source [id number] 10/14/2020 09:00:00 AM EST [facility] ([facility]) Name Value Range Interpretation Code Description Data Annelise rce(s) Supporting Document(s) Hemoglobin A1c/Hemoglobin.total in Blood 5.3 % 4.4-6.1 [facility] ([facility]) Is patient fasting? N ID Date Data Source [id number] 10/14/2020 09:00:00 AM EST [facility] ([facility]) Name Value Range Interpretation Code Description Data Annelise rce(s) Supporting Document(s) Comprehensive Metabo Laboratory test result [facility] ([facility]) Is patient fasting? N Chloride 103 meq/L 98-107 [facility] ([facility]) Is patient fasting? N Sodium 139 meq/L 134-153 [facility] ([facility]) Is patient fasting? N Potassium 4.1 meq/L 3.6-5.0 [facility] ([facility]) Is patient fasting? N Glucose 94 mg/dL 65-110 [facility] ([facility]) Is patient fasting? N BUN 21 mg/dL 7-21 [facility] ([facility]) Is patient fasting? N Co2 27 meq/L 22-30 [facility] ([facility]) Is patient fasting? N BUN/Creat 23 8-27 [facility] ([facility]) Is patient fasting? N Creatinine 0.9 mg/dL 0.7-1.5 [facility] ([facility]) Is patient fasting? N Albumin 4.2 g/dL 3.9-5.0 [facility] ([facility]) Is patient fasting? N Total Protein 5.9 g/dL 6.3-8.2 Below low normal [facility] ([facility]) Is patient fasting? N Calcium 9.0 mg/dL 8.4-10.2 [facility] ([facility]) Is patient fasting? N A/G Ratio 2.5 0.8-2.0 Above high normal [facility] ([facility]) Is patient fasting? N Globulin 1.7 GM/DL 2.4-3.2 Below low normal [facility] ( [facility]) Is patient fasting? N Alkaline Phos 104 U/L 38-126 [facility] ([facility]) Is patient fasting? N Total Bili Laboratory test result 0.2-1.3 [facility] ([facility]) Is patient fasting? N Sgot/Ast 23 U/L 5-40 [facility] ([facility]) Is patient fasting? N SGPT/Alt 22 U/L 7-56 [facility] ([facility]) Is patient fasting? N Age 55 yrs [facility] ([facility]) Is patient fasting? N Anion Gap 9.0 mmol/L 8.0-16.0 [facility] ([facility]) Is patient fasting? N Non-Aa GFR Laboratory test result [facility] ([facility]) Is patient fasting? N Afr Amer GFR Laboratory test result [facility] ([facility]) Is patient fasting? N ID Date Data Source [id number] 10/14/2020 09:00:00 AM EST [facility] ([facility]) Name Value Range Interpretation Code Description Data Annelise rce(s) Supporting Document(s) CBC W/Automated Diff Laboratory test result [facility] ([facility]) Is patient fasting? N RBC 4.40 10^6/uL 4.50-6.30 Below low normal [facility] ([facility]) Is patient fasting? N Hemoglobin 13.5 g/dL 14.0-16.0 Below low normal [facility] ( [facility]) Is patient fasting? N WBC 6.4 10^3/uL 4.2-11.0 [facility] ([facility]) Is patient fasting? N MCV 95.7 fL 80.0-94.0 Above high normal [facility] ([facility]) Is patient fasting? N Hematocrit 42.1 % 41.0-51.0 [facility] ([facility]) Is patient fasting? N RDW 13.2 % 11.5-14.8 [facility] ([facility]) Is patient fasting? N MCH 30.7 pg 27.0-34.0 [facility] ([facility]) Is patient fasting? N MCHC 32.1 g/dL 31.0-36.0 [facility] ([facility]) Is patient fasting? N MPV 11.0 fL 7.4-10.4 Above high normal [facility] ([facility]) Is patient fasting? N Platelets 243 10^3/uL 150-450 [facility] ([facility]) Is patient fasting? N Neut 60.6 % 37.0-80.0 [facility] ([facility]) Is patient fasting? N [place] 13.0 % 3.0-8.0 Above high normal [facility] ([facility]) Is patient fasting? N Lymph 23.1 % 25.0-40.0 Below low normal [facility] ( [facility]) Is patient fasting? N Eos 2.2 % 0.0-7.0 [facility] ([facility]) Is patient fasting? N Baso 0.6 % 0.0-2.0 [facility] ([facility]) Is patient fasting? N %NRBC 0.0 % 0.0-0.0 [facility] ([facility]) Is patient fasting? N %Ig 0.5 % 0.0-0.0 Above high normal [facility] ([facility]) Is patient fasting? N #Neut 3.88 10^3/uL 2.00-6.90 [facility] ([facility]) Is patient fasting? N #Lymph 1.48 10^3/uL 0.60-3.40 [facility] ([facility]) Is patient fasting? N #[place] 0.83 10^3/uL 0.00-0.90 [facility] ([facility]) Is patient fasting? N #Eos 0.14 10^3/uL 0.00-0.70 [facility] ([facility]) Is patient fasting? N #Baso 0.04 10^3/uL 0.00-0.20 [facility] ([facility]) Is patient fasting? N #Ig 0.03 10^3/uL 0.00-0.10 [facility] ([facility]) Is patient fasting? N Manual Diff Laboratory test result [facility] ([facility]) Is patient fasting? N #NRBC 0.00 10^3/uL 0.00-0.00 [facility] ([facility]) Is patient fasting? N RBC Morph Laboratory test result [facility] ([facility]) Is patient fasting? N ID Date Data Source [id number] 06/19/2020 09:27:00 AM EDT [facility] ([facility]) Name Value Range Interpretation Code Description Data Annelise rce(s) Supporting Document(s) Glucose [Mass/volume] in Capillary blood by Glucometer 100 [facility] ([facility]) ID Date Data Source [id number] 04/24/2020 12:00:00 AM EDT [facility] Messi Noel MD Patient Name: LEONARDO ALTMAN [facility] 1965[facility] [place] [id number] Date of Exam: 04/24/2020#: Fax: [phone] EXAM: MRI LUMBAR SPINE WITHOUT CONTRASTPROCEDURE INFORMATION:Exam: MR Lumbar Spine Without Contrast. Exam date and time: 04/24/2020 7:03AM Age: 54 years old Clinical indication: Low back pain; Prior surgery; Surgerydate: 6+ monthsTECHNIQUE: Imaging protocol: Multiplanar magnetic resonance images of thelumbar spine without intravenous contrast.COMPARISON: MRI LUMBAR SPINE WITHOUT CONTRAST 07/04/2018 7:37 AMFINDINGS:Vertebrae: There are vertical rods and pedicle screws at L5 and S1. Thereis a mm of grade 1 anterolisthesis of L5 with respect to S1. Normalvertebral body alignment is otherwise preserved. Spinal cord: Conusmedullaris terminates at L1/2.L1-L2: No significant disc disease. No significant spinal canal stenosis.No neural foraminal stenosis. L2- L3: There is shallow disc bulging. Thereis mild facet hypertrophy. There is mild right neural foraminal narrowing.L3-L4: There is shallow disc bulging. There is mild facet hypertrophy. Thespinal canal and neural foramina are patent.L4-L5: There is shallow disc bulging. There is moderate facet hypertrophy.There is mild bilateral neural foraminal narrowing.L5-S1: There is diffuse disc bulging/uncovering related to listhesis. Thefacet joints are obscured by metallic artifact. There is severe bilateralneural foraminal narrowing.Soft tissues: Unremarkable.IMPRESSION:Degenerative disc disease and spondylosis. At L5/S1, changes contribute tosevere bilateral neural foraminal narrowing.Thank you for allowing us to participate in the care of your patient.Dictated and Authenticated by: Ada Rangel MD 04/24/2020 12:50 P[place]astern Time ([place]VradV/jmcTjazlynk you for referring LARRY ALTMAN to our office. Electronically Signed - HERMILA 04/24/20 16:38 Name Value Range Interpretation Code Description Data Annelise rce(s) Supporting Document(s) ID Date Data Source [id number] 04/15/2020 09:05:00 AM EDT [facility] ([facility]) Name Value Range Interpretation Code Description Data Annelise rce(s) Supporting Document(s) Prostate Specific Ag,Serum 0.5 ng/mL 0.0-4.0 [facility] ([facility]) Is patient fasting? Y Reflex Criteria Laboratory test result [facility] ([facility]) Is patient fasting? Y ID Date Data Source [id number] 04/15/2020 09:05:00 AM EDT [facility] ([facility]) Name Value Range Interpretation Code Description Data Annelise rce(s) Supporting Document(s) Thyrotropin [Units/volume] in Serum or Plasma 2.38 uIU/mL 0.47-5.01 [facility] ([facility]) Is patient fasting? Y ID Date Data Source [id number] 04/15/2020 09:05:00 AM EDT [facility] ([facility]) Name Value Range Interpretation Code Description Data Annelise rce(s) Supporting Document(s) Triglycerides 280 mg/dL 35-160 Above high normal [facility] NT ([facility]) Is patient fasting? Y Cve Panel Laboratory test result [facility] ([facility]) Is patient fasting? Y Cholesterol 238 mg/dL 131-200 Above high normal [facility] ([facility]) Is patient fasting? Y LDL 141 mg/dL 65-175 [facility] ([facility]) Is patient fasting? Y HDL 34 mg/dL 29-86 [facility] ([facility]) Is patient fasting? Y LDL/HDL 4.15 1.00-3.55 Above high normal [facility] ([facility]) Is patient fasting? Y Risk Factor 7.0 3.4-4.9 Above high normal [facility] ([facility]) Is patient fasting? Y ID Date Data Source [id number] 04/15/2020 09:05:00 AM EDT [facility] ([facility]) Name Value Range Interpretation Code Description Data Annelise rce(s) Supporting Document(s) Hemoglobin A1c/Hemoglobin.total in Blood 5.2 % 4.4-6.1 [facility] ([facility]) Is patient fasting? Y ID Date Data Source [id number] 04/15/2020 09:05:00 AM EDT [facility] ([facility]) Name Value Range Interpretation Code Description Data Annelise rce(s) Supporting Document(s) Sodium 140 meq/L 134-153 [facility] ([facility]) Is patient fasting? Y Comprehensive Metabo Laboratory test result [facility] ([facility]) Is patient fasting? Y Potassium 4.6 meq/L 3.6-5.0 [facility] ([facility]) Is patient fasting? Y Chloride 105 meq/L 98-107 [facility] ([facility]) Is patient fasting? Y Co2 27 meq/L 22-30 [facility] ([facility]) Is patient fasting? Y Creatinine 1.0 mg/dL 0.7-1.5 [facility] ([facility]) Is patient fasting? Y Glucose 97 mg/dL 65-110 [facility] ([facility]) Is patient fasting? Y BUN 18 mg/dL 7-21 [facility] ([facility]) Is patient fasting? Y BUN/Creat 18 8-27 [facility] ([facility]) Is patient fasting? Y Albumin 4.2 g/dL 3.9-5.0 [facility] ([facility]) Is patient fasting? Y Total Protein 6.3 g/dL 6.3-8.2 [facility] ([facility]) Is patient fasting? Y A/G Ratio 2.0 0.8-2.0 [facility] ([facility]) Is patient fasting? Y Globulin 2.1 GM/DL 2.4-3.2 Below low normal [facility] ( [facility]) Is patient fasting? Y Calcium 9.1 mg/dL 8.4-10.2 [facility] ([facility]) Is patient fasting? Y Total Bili Laboratory test result 0.2-1.3 ME DENT ([facility]) Is patient fasting? Y Alkaline Phos 99 U/L 38-126 [facility] ([facility]) Is patient fasting? Y Sgot/Ast 21 U/L 5-40 [facility] ([facility]) Is patient fasting? Y Anion Gap 8.0 mmol/L 8.0-16.0 [facility] ([facility]) Is patient fasting? Y SGPT/Alt 19 U/L 7-56 [facility] ([facility]) Is patient fasting? Y Afr Amer GFR Laboratory test result [facility] ([facility]) Is patient fasting? Y Non-Aa GFR Laboratory test result [facility] ([facility]) Is patient fasting? Y Age 54 yrs [facility] ([facility]) Is patient fasting? Y ID Date Data Source [id number] 04/15/2020 09:05:00 AM EDT [facility] ([facility]) Name Value Range Interpretation Code Description Data Annelise rce(s) Supporting Document(s) CBC W/Automated Diff Laboratory test result [facility] ([facility]) Is patient fasting? Y WBC 7.2 10^3/uL 4.2-11.0 [facility] ([facility]) Is patient fasting? Y RBC 4.56 10^6/uL 4.50-6.30 [facility] ([facility]) Is patient fasting? Y Hemoglobin 14.0 g/dL 14.0-16.0 [facility] ([facility]) Is patient fasting? Y Hematocrit 43.5 % 41.0-51.0 [facility] ([facility]) Is patient fasting? Y MCH 30.7 pg 27.0-34.0 [facility] ([facility]) Is patient fasting? Y MCV 95.4 fL 80.0-94.0 Above high normal [facility] ([facility]) Is patient fasting? Y Platelets 197 10^3/uL 150-450 [facility] ([facility]) Is patient fasting? Y RDW 13.8 % 11.5-14.8 [facility] ([facility]) Is patient fasting? Y MCHC 32.2 g/dL 31.0-36.0 [facility] ([facility]) Is patient fasting? Y Neut 62.5 % 37.0-80.0 [facility] ([facility]) Is patient fasting? Y MPV 11.3 fL 7.4-10.4 Above high normal [facility] ([facility]) Is patient fasting? Y Shawnee 10.8 % 3.0-8.0 Above high normal [facility] ([facility]) Is patient fasting? Y Eos 2.2 % 0.0-7.0 [facility] ([facility]) Is patient fasting? Y Lymph 23.6 % 25.0-40.0 Below low normal [facility] ( [facility]) Is patient fasting? Y Baso 0.6 % 0.0-2.0 [facility] ([facility]) Is patient fasting? Y %Ig 0.3 % 0.0-0.0 Above high normal [facility] ([facility]) Is patient fasting? Y #Lymph 1.70 10^3/uL 0.60-3.40 [facility] ([facility]) Is patient fasting? Y %NRBC 0.0 % 0.0-0.0 [facility] ([facility]) Is patient fasting? Y #Neut 4.51 10^3/uL 2.00-6.90 [facility] ([facility]) Is patient fasting? Y #[place]awnee 0.78 10^3/uL 0.00-0.90 [facility] ([facility]) Is patient fasting? Y #Eos 0.16 10^3/uL 0.00-0.70 [facility] ([facility]) Is patient fasting? Y #Ig 0.02 10^3/uL 0.00-0.10 [facility] ([facility]) Is patient fasting? Y #NRBC 0.00 10^3/uL 0.00-0.00 [facility] ([facility]) Is patient fasting? Y #Baso 0.04 10^3/uL 0.00-0.20 [facility] ([facility]) Is patient fasting? Y Manual Diff Laboratory test result M [facility] ([facility]) Is patient fasting? Y RBC Morph Laboratory test result [facility] ([facility]) Is patient fasting? Y ID Date Data Source [id number] 04/18/2020 06:37:00 AM EDT [facility] Name Value Range Interpretation Code Description Data Annelise rce(s) Supporting Document(s) Prostate specific Ag [Mass/volume] in Serum or Plasma 0.5 ng/mL 0.0- 4.0 [facility] Cathryn ECLIA methodology.According to the [employer], Serum PSA shoulddecrease and remain at undetectable levels after radicalprostatectomy. The AUA defines biochemical recurrence as an initialPSA value 0.2 ng/mL or greater followed by a subsequent confirmatoryPSA value 0.2 ng/mL or greater.Values obtained with different assay methods or kits cannot be usedinterchangeably. Results cannot be interpreted as absolute evidenceof the presence or absence of malignant disease. Reflex Criteria COMMENT [facility] The percent free PSA is performed on a r eflex basis only when thetotal PSA is between 4.0 and 10.0 ng/mL. ID Date Data Source [id number] 04/15/2020 05:02:00 PM EDT [facility] Name Value Range Interpretation Code Description Data Annelise rce(s) Supporting Document(s) Thyrotropin [Units/volume] in Serum or Plasma by Detec tion limit <= 0.05 mIU/L 2.38 uIU/mL 0.47 - 5.01 [facility] ID Date Data Source [id number] 04/15/2020 04:53:00 PM EDT [facility] Name Value Range Interpretation Code Description Data Annelise rce(s) Supporting Document(s) Hemoglobin A1c/Hemoglobin.total in Blood 5.2 % 4.4 - 6.1 [facility] {A1]{HB] ID Date Data Source [id number] 04/15/2020 04:53:00 PM EDT [facility] Name Value Range Interpretation Code Description Data Annelise rce(s) Supporting Document(s) [facility] Cholesterol [Mass/volume] in Serum or Plasma 238 MG/DL 131 - 200 H [facility] Deprecated Triglyceride [Mass/volume] in Serum or Plasma 280 MG/DL 3 5 - 160 [facility] HDL 34 MG/DL 29 - 86 [facility] Cholesterol in LDL [Mass/volume] in Serum or Plasma by Direc t assay 141 mg/dL 65 - 175 [facility] Cholesterol.total/Cholesterol in HDL [Mass Ratio] in Serum o r Plasma 7.0 3.4 - 4.9 H [facility] LDL/HDL 4.15 1.00 - 3.[address] [facility] CVE RISK CHOL/HDL LDL/HDLMEN: 1/2 AVERAGE 3.43 1.00 AVERAGE 4.97 3.55 2X AVERAGE 9.55 6.25 3X AVERAGE 23.99 7.99WOMEN: 1/2 AVERAGE 3.27 1.47 AVERAGE 4.44 3.22 2X AVERAGE 7.05 5.03 3X AVERAGE 11.04 6.14 ID Date Data Source [id number] 04/15/2020 04:49:00 PM EDT [facility] Name Value Range Interpretation Code Description Data Annelise rce(s) Supporting Document(s) COMPREHENSIVE METABOLIC PANEL [facility] COMPREHENSIVE METABOLIC PANEL Sodium [Moles/volume] in Serum or Plasma 140 mEq/L 134 - 153 [facility] Potassium [Moles/volume] in Serum or Plasma 4.6 mEq/L 3.6 - 5.0 [facility] Chloride [Moles/volume] in Serum or Plasma 105 mEq/L 98 - 107 [facility] Carbon dioxide, total [Moles/volume] in Serum or Plasma 27 MEQ/L 22 - 30 [facility] Glucose [Mass/volume] in Serum or Plasma 97 MG/DL 65 - 110 [facility] BUN 18 MG/DL 7 - 21 [facility] Creatinine [Mass/volume] in Serum or Plasma 1.0 MG/DL 0.7 - 1.5 [facility] BUN/CREAT 18 8 - 27 [facility] Protein [Mass/volume] in Serum or Plasma 6.3 G/DL 6.3 - 8.2 [facility] Albumin [Mass/volume] in Serum or Plasma 4.2 G/DL 3.9 - 5.0 [facility] Globulin [Mass/volume] in Serum by calculation 2.1 GM/DL 2.4 - 3.2 L [facility] A/G RATIO 2.0 0.8 - 2.0 [facility] Calcium [Mass/volume] in Serum or Plasma 9.1 MG/DL 8.4 - 10.2 [facility] Bilirubin.total [Mass/volume] in Serum or Plasma <0.7 MG/DL 0.2 - 1.3 [facility] Alkaline phosphatase [Enzymatic activity/volume] in Serum or Plasma 99 U/L 38 - 126 [facility] Aspartate aminotransferase [Enzymatic activity/volume] in Serum or Plasma 21 U/L 5 - 40 [facility] Alanine aminotransferase [Enzymatic activity/volume] in Seru m or Plasma 19 U/L 7 - 56 [facility] Anion gap 3 in Serum or Plasma 8.0 mmol/L 8.0 - 16.0 [facility] AGE 54 yrs [facility] NON-AA GFR >60 mL/min [facility] AFR AMER GFR >60 mL/min [facility] Male GFR In terprentation 20-49 yrs >60 mL/min Normal 50-59 yrs >56 mL/min Normal 60-69 yrs >49 mL/min Normal 70-79yrs >42 mL/min Normal 80 and above >35 mL/min Normal Female GFR Interpretation 20-39 yrs >60 mL/min Normal 40-49 yrs >58 mL/min Normal 50-59 yrs >51 mL/min Normal 60-69 yrs >45 mL/min Normal 70-79 yrs >39 mL/min Normal 80 and above >32 mL/min Normal ID Date Data Source [id number] 04/15/2020 04:29:00 PM EDT [facility] Name Value Range Interpretation Code Description Data Annelise rce(s) Supporting Document(s) CBC W/AUTOMATED DIFF [facility] COMPLETE BLOOD COUNT Leukocytes [#/volume] in Blood by Automated count 7.2 10^3/uL 4.2 - 1 1.0 [facility] Erythrocytes [#/volume] in Blood by Automated count 4.56 10^6/uL 4. 50 - 6.30 [facility] Hemoglobin [Mass/volume] in Blood 14.0 g/dL 14.0 - 16.0 [facility] Hematocrit [Volume Fraction] of Blood by Automated count 43.5 % 4 1.0 - 51.0 [facility] Erythrocyte mean corpuscular volume [Entitic volume] by Auto mated count 95.4 fL 80.0 - 94.0 H [facility] Erythrocyte mean corpuscular hemoglobin [Entitic mass] by Automated count 30.7 pg 27.0 - 34.0 [facility] Erythrocyte mean corpuscular hemoglobin concentration [Mass/volume] by Automated count 32.2 g/dL 31.0 - 36.0 [facility] Erythrocyte distribution width [Ratio] by Automated count 13.8 % 11.5 - 14.8 [facility] Platelets [#/volume] in Blood by Automated count 197 10^3/uL 150 - 45 0 [facility] Platelet mean volume [Entitic volume] in Blood by Automated count 11.3 fL 7.4 - 10.4 H [facility] Neutrophils/100 leukocytes in Blood by Automated count 62.5 % 37. 0 - 80.0 [facility] Lymphocytes/100 leukocytes in Blood by Manual count 23.6 % 25.0 - 40.0 L [facility] Monocytes/100 leukocytes in Blood by Automated count 10.8 % 3.0 - 8.0 H [facility] Eosinophils/100 leukocytes in Blood by Automated count 2.2 % 0.0 - 7.0 [facility] Basophils/100 leukocytes in Blood by Automated count 0.6 % 0.0 - 2.0 [facility] %IG 0.3 % 0.0 - 0.0 [facility] %NRBC 0.0 % 0.0 - 0.0 [facility] Neutrophils [#/volume] in Blood by Automated count 4.51 10^3/uL 2.00 - 6.90 [facility] Lymphocytes [#/volume] in Blood by Automated count 1.70 10^3/uL 0.60 - 3.40 [facility] Monocytes [#/volume] in Blood by Automated count 0.78 10^3/uL 0.00 - 0.90 [facility] Eosinophils [#/volume] in Blood by Automated count 0.16 10^3/uL 0.00 - 0.70 [facility] Basophils [#/volume] in Blood by Automated count 0.04 10^3/uL 0.00 - 0.20 [facility] #IG 0.02 10^3/uL 0.00 - 0.10 [facility] #NRBC 0.00 10^3/uL 0.00 - 0.00 [facility] MANUAL DIFF NOT INDICATED [facility] RBC MORPH NOT INDICATED [facility] ID Date Data Source [id number] 01/18/2020 08:06:00 AM EDT [facility] [address] [place] [address] [phone] NAME SEX PT STATUS ACCOUNT NUMBER LARRY ALTMAN JR M REG REF [id number] ORDERING PHYSICIAN LOCATION MEDICAL RECORD NO. 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 The patient this study, there is no evidence of hardware complication or failure. Note is made of grade II anter olisthesis of L5, where there also appears to be bilateral spondylolysis. Note is made of left-sided laminotomy at L5. Mild anterior compression deformity of L2 is seen, associated with approximately 15-20% loss of anterior height. At upper spinal levels, there is no significant disc bulge or protrusion. No significant spinal stenosis is suggested at those levels. At L4-5, significant ligamentous hypertrophy is seen, and this appears to be associated with moderate spinal stenosis. However, no significant neural foraminal stenosis is seen. No significant disc bulge or protrusion is seen at L5-S1. As result of the laminotomy, there is no significant spinal stenosis. IMPRESSION: Lumbar spinal fusion at L5-S1 without evidence of hardware complication or failure. Grade II anterolisthesis of L5. Left-sided L5 laminotomy. Ligamentous thickening at L4-5. Associated spinal stenosis but no significant neural foraminal narrowing. Dose reduction was performed utilizing CARE dose with automated adjustment of the kV and MAS according to patient size, iterative reconstruction, automated exposure control, as well as adaptivedose shielding. Reported By Gautam Collado MD on 01/18/20805 Signed By Gautam Collado MD on 01/18/20819 Date Time CC: SANTOS Ortiz; Gautam Collado MD Techn: [id number] Trans Dt/Tm: Trans by: DT Prt Dt/Tm: : Total DLP = 448.00 mGy-cm : Total Radiation Dose = 6.7200 mSv Lifetime Dose: 6.7200 mSv Name Value Range Interpretation Code Description Data Annelise rce(s) Supporting Document(s) ID Date Data Source [id number] 10/16/2019 10:30:00 AM EST [facility] ([facility]) Name Value Range Interpretation Code Description Data Annelise rce(s) Supporting Document(s) Reflex Criteria COMMENT [facility] ([facility]) FASTING~.~.~E8342 Prostate Specific Ag,Serum 0.6 ng/mL 0.0-4.0 [facility] ([facility]) FASTING~.~.~[id number] ID Date Data Source [id number] 10/16/2019 10:30:00 AM EST [facility] ([facility]) Name Value Range Interpretation Code Description Data Annelise rce(s) Supporting Document(s) Thyrotropin [Units/volume] in Serum or Plasma 2.40 uIU/mL 0.47-5.01 [facility] ([facility]) FASTING~.~.~[id number] ID Date Data Source [id number] 10/16/2019 10:30:00 AM EST [facility] ([facility]) Name Value Range Interpretation Code Description Data Annelise rce(s) Supporting Document(s) Cve Panel (SEE NOTE) [facility] ([facility]) FASTING~.~.~E8342 Triglycerides 202 mg/dL 35-160 Above high [facility] FASTING~.~.~E8342 HDL 39 mg/dL 29-86 [facility] ([facility]) FASTING~.~.~E8342 Cholesterol 237 mg/dL 131-200 Above high normal [facility] ([facility]) FASTING~.~.~E8342 LDL 175 mg/dL 65-175 [facility] FASTING~.~.~E8342 Risk Factor 6.1 3.4-4.9 Above high normal [facility] ([facility]) FASTING~.~.~E8342 LDL/HDL 4.49 1.00-3.55 Above high normal [facility] ([facility]) FASTING~.~.~[id number] ID Date Data Source [id number] 10/16/2019 10:30:00 AM EST [facility] ([facility]) Name Value Range Interpretation Code Description Data Annelise rce(s) Supporting Document(s) Hemoglobin A1c/Hemoglobin.total in Blood 5.4 % 4.4-6.1 [facility] ([facility]) FASTING~.~.~[id number] ID Date Data Source [id number] 10/16/2019 10:30:00 AM EST [facility] ([facility]) Name Value Range Interpretation Code Description Data Annelise rce(s) Supporting Document(s) Sodium 141 meq/L 134-153 [facility] ([facility]) FASTING~.~.~E8342 Comprehensive Metabo (SEE NOTE) [facility] ( [facility]) FASTING~.~.~E8342 Chloride 104 meq/L 98-107 [facility] ([facility]) FASTING~.~.~E8342 Co2 28 meq/L 22-30 [facility] ([facility]) FASTING~.~.~E8342 Potassium 4.4 meq/L 3.6-5.0 [facility]) FASTING~.~.~E8342 Creatinine 1.0 mg/dL 0.7-1.5 [facility] ([facility]) FASTING~.~.~E8342 Glucose 98 mg/dL 65-110 [facility]) FASTING~.~.~E8342 BUN 15 mg/dL 7-21 [facility] ([facility]) FASTING~.~.~E8342 Albumin 4.4 g/dL 3.9-5.0 [facility] ([facility]) FASTING~.~.~E8342 Total Protein 6.8 g/dL 6.3-8.2 [facility] ([facility]) FASTING~.~.~E8342 BUN/Creat 15 8-27 [facility] ([facility]) FASTING~.~.~E8342 Globulin 2.4 GM/DL 2.4-3.2 [facility] ([facility]) FASTING~.~.~E8342 A/G Ratio 1.8 0.8-2.0 [facility] ([facility]) FASTING~.~.~E8342 Calcium 9.7 mg/dL 8.4-10.2 [facility]) FASTING~.~.~E8342 Sgot/Ast 19 U/L 5-40 [facility] ([facility]) FASTING~.~.~E8342 Alkaline Phos 104 U/L 38-126 [facility] ([facility]) FASTING~.~.~E8342 Total Bili <0.7 mg/dL 0.2-1.3 [facility] ([facility]) FASTING~.~.~E8342 Anion Gap 9.0 mmol/L 8.0-16.0 [facility] ([facility]) FASTING~.~.~E8342 Age 54 yrs [facility] ([facility]) FASTING~.~.~E8342 SGPT/Alt 17 U/L 7-56 [facility] ([facility]) FASTING~.~.~E8342 Non-Aa GFR >60 mL/min [facility] ([facility]) FASTING~.~.~E8342 Afr Amer GFR >60 mL/min [facility] FASTING~.~.~[id number] ID Date Data Source [id number] 10/16/2019 10:30:00 AM EST [facility] ([facility]) Name Value Range Interpretation Code Description Data Annelise rce(s) Supporting Document(s) WBC 7.6 10^3/uL 4.2-11.0 [facility] FASTING~.~.~E8342 CBC W/Automated Diff (SEE NOTE) [facility] ( [facility]) FASTING~.~.~E8342 Hemoglobin 15.2 g/dL 14.0-16.0 [facility] ([facility]) FASTING~.~.~E8342 RBC 4.92 10^6/uL 4.50-6.30 [facility] FASTING~.~.~E8342 Hematocrit 46.3 % 41.0-51.0 [facility] ([facility]) FASTING~.~.~E8342 MCH 30.9 pg 27.0-34.0 [facility] ([facility]) FASTING~.~.~E8342 MCV 94.1 fL 80.0-94.0 Above high normal [facility] ([facility]) FASTING~.~.~E8342 RDW 13.9 % 11.5-14.8 [facility] ([facility]) FASTING~.~.~E8342 Platelets 197 10^3/uL 150-450 [facility]) FASTING~.~.~E8342 MCHC 32.8 g/dL 31.0-36.0 [facility] FASTING~.~.~E8342 MPV 11.6 fL 7.4-10.4 Above high normal [facility] ([facility]) FASTING~.~.~E8342 Lymph 23.3 % 25.0-40.0 Below low normal [facility] ( [facility]) FASTING~.~.~E8342 Neut 63.5 % 37.0-80.0 [facility] ([facility]) FASTING~.~.~E8342 [place]nee 9.7 % 3.0-8.0 Above high normal [facility] ([facility]) FASTING~.~.~E8342 Baso 0.7 % 0.0-2.0 [facility] ([facility]) FASTING~.~.~E8342 Eos 1.9 % 0.0-7.0 [facility] ([facility]) FASTING~.~.~E8342 %Ig 0.9 % 0.0-0.0 Above high normal [facility] ([facility]) FASTING~.~.~E8342 #Neut 4.81 10^3/uL 2.00-6.90 [facility] ([facility]) FASTING~.~.~E8342 %NRBC 0.0 % 0.0-0.0 [facility] ([facility]) FASTING~.~.~E8342 #[place] 0.73 10^3/uL 0.00-0.90 [facility] ([facility]) FASTING~.~.~E8342 #Lymph 1.76 10^3/uL 0.60-3.40 [facility] ([facility]) FASTING~.~.~E8342 #Eos 0.14 10^3/uL 0.00-0.70 [facility] ([facility]) FASTING~.~.~E8342 #Baso 0.05 10^3/uL 0.00-0.20 [facility] ([facility]) FASTING~.~.~E8342 #Ig 0.07 10^3/uL 0.00-0.10 [facility] ([facility]) FASTING~.~.~E8342 #NRBC 0.00 10^3/uL 0.00-0.00 [facility] ([facility]) FASTING~.~.~E8342 Manual Diff NOT INDICATED [facility] ([facility]) FASTING~.~.~E8342 RBC Morph NOT INDICATED [facility] ([facility]) FASTING~.~.~E8342 ID Date Data Source [id number] 10/18/2019 06:48:00 AM EST [facility] Name Value Range Interpretation Code Description Data Annelise rce(s) Supporting Document(s) Prostate specific Ag [Mass/volume] in Serum or Plasma 0.6 ng/mL 0.0- 4.0 [facility] Cathryn ECLIA methodology.According to the [employer], Serum PSA shoulddecrease and remain at undetectable levels after radicalprostatectomy. The AUA defines biochemical recurrence as an initialPSA value 0.2 ng/mL or greater followed by a subsequent confirmatoryPSA value 0.2 ng/mL or greater.Values obtained with different assay methods or kits cannot be usedinterchangeably. Results cannot be interpreted as absolute evidenceof the presence or absence of malignant disease. Reflex Criteria COMMENT [facility] The percent free PSA is performed on a r eflex basis only when thetotal PSA is between 4.0 and 10.0 ng/mL. ID Date Data Source [id number] 10/16/2019 05:44:00 PM EST [facility] Name Value Range Interpretation Code Description Data Annelise rce(s) Supporting Document(s) CVE PANEL [facility] LIPID PANEL Cholesterol [Mass/volume] in Serum or Plasma 237 MG/DL 131 - 200 [facility] Deprecated Triglyceride [Mass/volume] in Serum or Plasma 202 MG/DL 3 5 - 160 [facility] HDL 39 MG[facility]DL [facility] Ch[facility] in LDL/Cholesterol in HDL [Mass Ratio] in Serum or Plasma 175 mg/dL 65 - 175 [facility] Cholesterol.total/Cholesterol in HDL [Mass Ratio] in Serum o r Plasma 6.1 3.4 - 4.9 [facility] LDL/HDL 4.49 1.00 - 3.[address] [facility] CVE RISK CHOL/HDL LDL/HDLMEN: 1/2 AVERAGE 3.43 1.00 AVERAGE 4.97 3.55 2X AVERAGE 9.55 6.25 3X AVERAGE 23.99 7.99WOMEN: 1/2 AVERAGE 3.27 1.47 AVERAGE 4.44 3.22 2X AVERAGE 7.05 5.03 3X AVERAGE 11.04 6.14 ID Date Data Source [id number] 10/16/2019 05:41:00 PM [facility] Name Value Range Interpretation Code Description Data Annelise rce(s) Supporting Document(s) Thyrotropin [Units/volume] in Serum or Plasma by Detec tion limit <= 0.05 mIU/L 2.40 uIU/mL 0.47 - 5.01 [facility] ID Date Data Source [id number] 10/16/2019 05:39:00 PM EST [facility] Name Value Range Interpretation Code Description Data Annelise rce(s) Supporting Document(s) COMPREHENSIVE METABOLIC PANEL [facility] COMPREHENSIVE METABOLIC PANEL Sodium [Moles/volume] in Serum or Plasma 141 mEq/L 134 - 153 [facility] Potassium [Moles/volume] in Serum or Plasma 4.4 mEq/L 3.6 - 5.0 [facility] Chloride [Moles/volume] in Serum or Plasma 104 mEq/L 98 - 107 [facility] Carbon dioxide, total [Moles/volume] in Serum or Plasma 28 MEQ/L 22 - 30 [facility] Glucose [Mass/volume] in Serum or Plasma 98 MG/DL 65 - 110 [facility] BUN 15 MG/DL 7 - 21 [facility] Creatinine [Mass/volume] in Serum or Plasma 1.0 MG/DL 0.7 - 1.5 [facility] BUN/CREAT 15 8 - 27 [facility] Protein [Mass/volume] in Serum or Plasma 6.8 G/DL 6.3 - 8.2 [facility] Albumin [Mass/volume] in Serum or Plasma 4.4 G/DL 3.9 - 5.0 [facility] Globulin [Mass/volume] in Serum by calculation 2.4 GM/DL 2.4 - 3.2 [facility] A/G RATIO 1.8 0.8 - 2.0 [facility] Calcium [Mass/volume] in Serum or Plasma 9.7 MG/DL 8.4 - 10.2 [facility] Bilirubin.total [Mass/volume] in Serum or Plasma <0.7 MG/DL 0.2 - 1.3 [facility] Alkaline phosphatase [Enzymatic activity/volume] in Serum or Plasma 104 U/L 38 - 126 [facility] Aspartate aminotransferase [Enzymatic activity/volume] in Serum or Plasma 19 U/L 5 - 40 [facility] Alanine aminotransferase [Enzymatic activity/volume] in Seru m or Plasma 17 U/L 7 - 56 [facility] Anion gap 3 in Serum or Plasma 9.0 mmol/L 8.0 - 16.0 [facility] AGE [address] [facility] NON-AA GFR >60 mL/min [facility] AFR AMER GFR >60 mL/min [facility] Male GFR In terprentation 20-49 yrs >60 mL/min Normal 50-59 yrs >56 mL/min Normal 60-69 yrs >49 mL/min Normal 70-79yrs >42 mL/min Normal 80 and above >35 mL/min Normal Female GFR Interpretation 20-39 yrs >60 mL/min Normal 40-49 yrs >58 mL/min Normal 50-59 yrs >51 mL/min Normal 60-69 yrs >45 mL/min Normal 70-79 yrs >39 mL/min Normal 80 and above >32 mL/min Normal ID Date Data Source [id number] 10/16/2019 05:29:00 PM [facility] Name Value Range Interpretation Code Description Data Annelise rce(s) Supporting Document(s) Hemoglobin A1c/Hemoglobin.total in Blood 5.4 % 4.4 - 6.1 [facility] {A1]{HB] ID Date Data Source [id number] 10/16/2019 05:20:00 PM [facility] Name Value Range Interpretation Code Description Data Annelise rce(s) Supporting Document(s) CBC W/AUTOMATED DIFF [facility] COMPLETE BLOOD COUNT Leukocytes [#/volume] in Blood by Automated count 7.6 10^3/uL 4.2 - 1 1.0 [facility] Erythrocytes [#/volume] in Blood by Automated count 4.92 10^6/uL 4. 50 - 6.30 [facility] Hemoglobin [Mass/volume] in Blood 15.2 g/dL 14.0 - 16.0 [facility] Hematocrit [Volume Fraction] of Blood by Automated count 46.3 % 4 1.0 - 51.0 [facility] Erythrocyte mean corpuscular volume [Entitic volume] by Auto mated count 94.1 fL 80.0 - 94.0 H [facility] Erythrocyte mean corpuscular hemoglobin [Entitic mass] by Automated count 30.9 pg 27.0 - 34.0 [facility] Erythrocyte mean corpuscular hemoglobin concentration [Mass/volume] by Automated count 32.8 g/dL 31.0 - 36.0 [facility] Erythrocyte distribution width [Ratio] by Automated count 13.9 % 11.5 - 14.8 [facility] Platelets [#/volume] in Blood by Automated count 197 10^3/uL 150 - 45 0 [facility] Platelet mean volume [Entitic volume] in Blood by Automated count 11.6 fL 7.4 - 10.4 H [facility] Neutrophils/100 leukocytes in Blood by Automated count 63.5 % 37. 0 - 80.0 [facility] Lymphocytes/100 leukocytes in Blood by Manual count 23.3 % 25.0 - 40.0 L [facility] Monocytes/100 leukocytes in Blood by Automated count 9.7 % 3.0 - 8.0 H [facility] Eosinophils/100 leukocytes in Blood by Automated count 1.9 % 0.0 - 7.0 [facility] Basophils/100 leukocytes in Blood by Automated count 0.7 % 0.0 - 2.0 [facility] %IG 0.9 % 0.0 - 0.0 H [facility] al %NRBC 0.0 % 0.0 - 0.0 [facility] Neutrophils [#/volume] in Blood by Automated count 4.81 10^3/uL 2.00 - 6.90 [facility] Lymphocytes [#/volume] in Blood by Automated count 1.76 10^3/uL 0.60 - 3.40 [facility] Monocytes [#/volume] in Blood by Automated count 0.73 10^3/uL 0.00 - 0.90 [facility] Eosinophils [#/volume] in Blood by Automated count 0.14 10^3/uL 0.00 - 0.70 [facility] Basophils [#/volume] in Blood by Automated count 0.05 10^3/uL 0.00 - 0.20 [facility] #IG 0.07 10^3/uL 0.00 - 0.10 [facility] #NRBC 0.00 10^3/uL 0.00 - 0.00 [facility] MANUAL DIFF NOT INDICATED [facility] RBC MORPH NOT INDICATED [facility] Procedure Vital Signs ID Date Data Source UNK Name Value Range Interpretation Code Description Data Source(s) Body surface area Derived from formula 1.89 m2 1.89 m2 [facility] ([facility]) Body mass index (BMI) [Ratio] 28.1 kg/m2 28.1 k g/m2 [facility] ([facility]) Body height 66 [in_i] 66 [in_i] [facility] ([facility]) 5'6" Body weight 78.983 kg 78.983 kg [facility] ([facility]) Body weight 174.12 [lb_av] 174.12 [lb_av] [facility] ([facility]) Oxygen saturation in Arterial blood by Pulse oximetry 97 % 97 % [facility] ([facility]) Respiratory rate 18 /min 18 /min [facility] ( [facility]) Body temperature 97.2 [degF] 97.2 [degF] [facility] ([facility]) Heart rate 78 /min 78 /min [facility] ([facility]) Diastolic blood pressure 72 mm[Hg] 72 mm[Hg] [facility] ([facility]) Systolic blood pressure 124 mm[Hg] 124 mm[Hg] [facility] Body surface area Derived from formula 1.87 m2 1.87 m2 [facility] ([facility], ) Body weight 77.112 kg 77.112 kg [facility] ([facility], ) [place] body weight 142 [lb_av] 142 [lb_av] [facility] ([facility], ) Body mass index (BMI) [Ratio] 27.4 kg/m2 27.4 k g/m2 [facility] ([facility], ) Body weight 170.00 [lb_av] 170.00 [lb_av] [facility] ([facility]) Body height 66 [in_i] 66 [in_i] [facility] 5'6" Diastolic blood pressure 70 mm[Hg] 70 mm[Hg] [facility] ([facility]) Systolic blood pressure 130 mm[Hg] 130 mm[Hg] [facility] ([facility]) Body surface area Derived from formula 1.89 m2 1.89 m2 [facility] ([facility]) Body weight 79.607 kg 79.607 kg [facility] ([facility]) [place] body weight 142 [lb_av] 142 [lb_av] [facility] ([facility]) Body mass index (BMI) [Ratio] 28.3 kg/m2 28.3 k g/m2 [facility] ([facility]) Body weight 175.50 [lb_av] 175.50 [lb_av] [facility] ([facility]) Body height 66 [in_i] 66 [in_i] [facility] ([facility]) 5'6" Diastolic blood pressure 99 mm[Hg] 99 mm[Hg] [facility] ([facility]) Systolic blood pressure 153 mm[Hg] 153 mm[Hg] [facility] ([facility]) Body surface area Derived from formula 1.86 m2 1.86 m2 [facility] ([facility]) Body weight 76.205 kg 76.205 kg [facility] ([facility]) [place] body weight 142 [lb_av] 142 [lb_av] [facility] ([facility]) Body mass index (BMI) [Ratio] 27.1 kg/m2 27.1 k g/m2 [facility] ([facility]) Body weight 168.00 [lb_av] 168.00 [lb_av] [facility] ([facility]) Body height 66 [in_i] 66 [in_i] [facility] ([facility]) 5'6" Diastolic blood pressure 96 mm[Hg] 96 mm[Hg] [facility] ([facility], ) Systolic blood pressure 152 mm[Hg] 152 mm[Hg] [facility] Body surface area Derived from formula 1.86 m2 1.86 m2 [facility] ([facility]) Body mass index (BMI) [Ratio] 27.3 kg/m2 27.3 k g/m2 [facility] ([facility]) Body height 66 [in_i] 66 [in_i] [facility] ([facility]) 5'6" Body weight 76.829 kg 76.829 [facility] Body weight 169.38 [lb_av] 169.38 [lb_av] [facility] ([facility]) Oxygen saturation in Arterial blood by Pulse oximetry 98 % 98 % [facility] ([facility]) Respiratory rate 18 /min 18 /min [facility] ( [facility]) Body temperature 98.2 [degF] 98.2 [degF] [facility] ([facility]) Heart rate 84 /min 84 /min [facility] ([facility]) Diastolic blood pressure 80 mm[Hg] 80 mm[Hg] [facility] ([facility]) Systolic blood pressure 126 mm[Hg] 126 mm[Hg] [facility] ([facility]) Body surface area Derived from formula 1.85 m2 1.85 m2 [facility] ([facility]) Body mass index (BMI) [Ratio] 27.0 kg/m2 27.0 k g/m2 [facility] ([facility]) Body height 66 [in_i] 66 [in_i] [facility] ([facility]) 5'6" Body weight 75.865 kg 75.865 kg [facility] ([facility]) Body weight 167.25 [lb_av] 167.25 [lb_av] [facility] ([facility]) Oxygen saturation in Arterial blood by Pulse oximetry 98 % 98 % [facility] ([facility]) Respiratory rate 18 /min 18 /min [facility] ( [facility]) Body temperature 97.6 [degF] 97.6 [degF] [facility] ([facility]) Heart rate 86 /min 86 /min [facility] ([facility]) Diastolic blood pressure--sitting 88 mm[Hg] 88 mm[Hg] [facility] Systolic blood pressure--sitting 144 mm[Hg] 144 mm[Hg] [facility] ([facility]) Diastolic blood pressure 88 mm[Hg] 88 mm[Hg] [facility] ([facility]) Systolic blood pressure 152 mm[Hg] 152 mm[Hg] [facility] ([facility]) Body surface area 1.85 m2 1.85 m2 [facility] ([facility]) Body surface area Derived from formula 1.87 m2 1.87 m2 [facility] ([facility]) Body mass index (BMI) [Ratio] 27.6 kg/m2 27.6 k g/m2 [facility] ([facility]) Body height 66 [in_i] 66 [in_i] [facility] ([facility]) 5'6" Body weight 77.566 kg 77.566 kg [facility] ([facility]) Body weight 171.00 [lb_av] 171.00 [lb_av] [facility] ([facility]) Oxygen saturation in Arterial blood by Pulse oximetry 97 % 97 % [facility] ([facility]) Respiratory rate 18 /min 18 /min [facility] ( [facility]) Body temperature 98.0 [degF] 98.0 [degF] [facility] ([facility]) Heart rate 82 /min 82 /min [facility] ([facility]) Diastolic blood pressure 90 mm[Hg] 90 mm[Hg] [facility] ([facility]) Systolic blood pressure 142 mm[Hg] 142 mm[Hg] [facility] ([facility]) Body surface area 1.87 m2 1.87 m2 [facility] ([facility]) Body surface area 1.88 m2 1.88 m2 [facility] ([facility]) Body mass index (BMI) [Ratio] 27.8 kg/m2 27.8 k g/m2 [facility] ([facility]) Body height 66 [in_i] 66 [in_i] [facility] ([facility]) 5'6" Body weight 78.189 kg 78.189 kg [facility] ([facility]) Body weight 172.38 [lb_av] 172.38 [lb_av] [facility] ([facility]) Oxygen saturation in Arterial blood by Pulse oximetry 97 % 97 % [facility] ([facility]) Respiratory [facility] 16 /min 16 /min [facility] Body temperature 98.2 [degF] 98.2 [degF] [facility] Heart rate 96 /min 96 /min [facility] Diastolic blood pressure 98 mm[Hg] 98 mm[Hg] [facility] ([facility]) Systolic blood pressure 150 mm[Hg] 150 mm[Hg] [facility] ([facility])
[2020-11-29 00:50] LABS: BASO # 0.1 10^3/uL (0.0-0.2); BASO % 0.7 % (0.0-1.0); EOS # 0.2 10^3/uL (0.0-0.5); HEMATOCRIT 38.2 % (42.0-52.0); HEMOGLOBIN 12.4 g/dl (13.5-17.5); LYMPH # 1.8 10^3/uL (1.5-5.0); LYMPH % 23.5 % (24.0-44.0); MEAN CORPUSCULAR HEMOGLOBIN 30.5 pg (27.0-33.0); MEAN CORPUSCULAR HGB CONC 32.5 g/dl (32.0-36.5); MEAN CORPUSCULAR VOLUME 93.9 fl (80.0-96.0); MONO # 0.9 10^3/uL (0.0-0.8); MONO % 12.6 % (2.0-8.0); NEUTROPHILS # 4.5 10^3/uL (1.5-8.5); NEUTROPHILS % 60.9 % (36.0-66.0); PLATELET COUNT, AUTOMATED 197 10^3/uL (150-450); RED BLOOD COUNT 4.07 10^6/uL (4.30-6.10); WHITE BLOOD COUNT 7.5 10^3/uL (4.0-10.0)
[2020-11-29 01:16] LABS: BLOOD UREA NITROGEN 26 MG/DL (7-18); CALCIUM LEVEL 8.5 MG/DL (8.5-10.1); CARBON DIOXIDE LEVEL 28 MEQ/L (21-32); CHLORIDE LEVEL 107 MEQ/L (98-107); CREATININE FOR GFR 0.97 MG/DL (0.70-1.30); GLOMERULAR FILTRATION RATE > 60.0 (>56); GLUCOSE, FASTING 99 MG/DL (70-100); POTASSIUM SERUM 4.1 MEQ/L (3.5-5.1); SODIUM LEVEL 140 MEQ/L (136-145)
[2020-11-29 01:38] LABS: C REACTIVE PROTEIN QUANTITATIV 2.73 MG/DL (0.00-0.30)
[2020-11-29 01:44] LABS: ERYTHROCYTE SEDIMENTATION RATE 27 mm/hr (0-20)
--- NOTE | 2020-11-29 02:13 | REPVR ---
PROCEDURE INFORMATION: Exam: US Duplex Right Lower Extremity Veins, Limited Exam date and time: 11/29/2020 1:46 AM Age: 55 years old Clinical indication: Leg, upper; Right; Prior surgery; Surgery date: 3-7 days post-operative; Surgery type: Patient had renal artery stent placed on 11/25/2020 with access from RT fem art; Patient HX: Patient has had increased swelling and pain since procedure; Additional info: Swelling S/P fem art acess R/O dvt/hematoma TECHNIQUE: Imaging protocol: Real-time Duplex ultrasound of the Right Lower Extremity with 2-D lee scale, color Doppler flow and spectral waveform analysis with image documentation. Limited exam was focused on the right lower extremity veins. COMPARISON: No relevant prior studies available. FINDINGS: Right deep veins: Unremarkable. The common femoral, femoral, proximal profunda femoral and popliteal veins are patent without thrombus. Normal Doppler waveforms. Normal compressibility and/or augmentation response. Right superficial veins: Unremarkable. Saphenofemoral junction is patent without thrombus. Soft tissues: Reactive right inguinal adenopathy. IMPRESSION: No evidence of deep vein thrombosis. No evidence of a significant hematoma or fluid collection. Reactive right inguinal adenopathy. Electronically signed by: Sukhdev Tai On 11/29/2020 02:14:00 AM
--- OUTSIDE RECORDS SUMMARY | 2020-11-29 02:42 | CCD ---
Author Author [facility] Organization [facility] Address Unknown Phone Unavailable Care Team Providers Care Ragman Name Role Phone Hensley, L Emily RPA [...] Zainab Kyara ANP-BC Unavailable Unavailable Harris, Yodit DIRECT MAIL COORDINATOR Unavailable Unavailable Harris, Yodit DIRECT MAIL COORDINATOR Unavailable Unavailable Harris, Yodit DIRECT MAIL COORDINATOR Unavailable Unavailable Harris, Yodit DIRECT MAIL COORDINATOR Unavailable Unavailable Harris, Yodit DIRECT MAIL COORDINATOR Unavailable Unavailable Harris, Yodit DIRECT MAIL COORDINATOR Unavailable Unavailable Harris, Yodit DIRECT MAIL COORDINATOR Unavailable Unavailable Harris, Yodit DIRECT MAIL COORDINATOR Unavailable Unavailable Harris, Yodit DIRECT MAIL COORDINATOR Unavailable Unavailable Harris, Yodit DIRECT MAIL COORDINATOR Unavailable Unavailable Harris, Yodit DIRECT MAIL COORDINATOR Unavailable Unavailable Harris, Yodit DIRECT MAIL COORDINATOR Unavailable Unavailable Harris, Yodit DIRECT MAIL COORDINATOR Unavailable Unavailable Harris, Yodit DIRECT MAIL COORDINATOR Unavailable Unavailable Harris, Yodit DIRECT MAIL COORDINATOR Unavailable Unavailable Harris, Yodit DIRECT MAIL COORDINATOR Unavailable Unavailable Harris, Yodit DIRECT MAIL COORDINATOR Unavailable Unavailable Harris, Yodit DIRECT MAIL COORDINATOR Unavailable Unavailable Harris, Yodit DIRECT MAIL COORDINATOR Unavailable Unavailable Harris, Yodit DIRECT MAIL COORDINATOR Unavailable Unavailable Harris, Yodit DIRECT MAIL COORDINATOR Unavailable Unavailable Harris, Yodit DIRECT MAIL COORDINATOR Unavailable Unavailable Harris, Yodit DIRECT MAIL COORDINATOR Unavailable Unavailable Harris, Yodit DIRECT MAIL COORDINATOR Unavailable Unavailable Harris, Yodit DIRECT MAIL COORDINATOR Unavailable Unavailable Harris, Yodit DIRECT MAIL COORDINATOR Unavailable Unavailable Harris, Yodit DIRECT MAIL COORDINATOR Unavailable Unavailable Harris, Yodit DIRECT MAIL COORDINATOR Unavailable Unavailable Harris, Yodit DIRECT MAIL COORDINATOR Unavailable Unavailable Harris, Yodit DIRECT MAIL COORDINATOR Unavailable Unavailable Harris, Yodit DIRECT MAIL COORDINATOR Unavailable Unavailable Harris, Yodit DIRECT MAIL COORDINATOR Unavailable Unavailable Harris, Yodit DIRECT MAIL COORDINATOR Unavailable Unavailable Harris, Yodit DIRECT MAIL COORDINATOR Unavailable Unavailable Harris, Yodit DIRECT MAIL COORDINATOR Unavailable Unavailable Harris, Yodit DIRECT MAIL COORDINATOR Unavailable Unavailable Harris, Yodit DIRECT MAIL COORDINATOR Unavailable Unavailable Harris, Yodit DIRECT MAIL COORDINATOR Unavailable Unavailable Harris, Yodit DIRECT MAIL COORDINATOR Unavailable Unavailable Harris, Yodit DIRECT MAIL COORDINATOR Unavailable Unavailable Harris, Yodit DIRECT MAIL COORDINATOR Unavailable Unavailable Harris, Yodit DIRECT MAIL COORDINATOR Unavailable Unavailable Harris, Yodit DIRECT MAIL COORDINATOR Unavailable Unavailable Harris, Yodit DIRECT MAIL COORDINATOR Unavailable Unavailable Harris, Yodit DIRECT MAIL COORDINATOR Unavailable Unavailable Harris, Yodit DIRECT MAIL COORDINATOR Unavailable Unavailable Harris, Yodit DIRECT MAIL COORDINATOR Unavailable Unavailable Harris, Yodit DIRECT MAIL COORDINATOR Unavailable Unavailable Harris, Yodit DIRECT MAIL COORDINATOR Unavailable Unavailable Harris, Yodit DIRECT MAIL COORDINATOR Unavailable Unavailable Harris, Yodit DIRECT MAIL COORDINATOR Unavailable Unavailable Harris, Yodit DIRECT MAIL COORDINATOR Unavailable Unavailable Harris, Yodit DIRECT MAIL COORDINATOR Unavailable Unavailable Harris, Yodit DIRECT MAIL COORDINATOR Unavailable Unavailable Harris, Yodit DIRECT MAIL COORDINATOR Unavailable Unavailable Harris, Yodit DIRECT MAIL COORDINATOR Unavailable Unavailable Harris, Yodit DIRECT MAIL COORDINATOR Unavailable Unavailable Harris, Yodit DIRECT MAIL COORDINATOR Unavailable Unavailable Harris, Yodit DIRECT MAIL COORDINATOR Unavailable Unavailable Harris, Yodit DIRECT MAIL COORDINATOR Unavailable Unavailable Harris, Yodit DIRECT MAIL COORDINATOR Unavailable Unavailable Harris, Yodit DIRECT MAIL COORDINATOR Unavailable Unavailable Harris, Yodit DIRECT MAIL COORDINATOR Unavailable Unavailable Harris, Yodit DIRECT MAIL COORDINATOR Unavailable Unavailable Harris, Yodit DIRECT MAIL COORDINATOR Unavailable Unavailable Harris, Yodit DIRECT MAIL COORDINATOR Unavailable Unavailable Harris, Yodit DIRECT MAIL COORDINATOR Unavailable Unavailable Harris, Yodit DIRECT MAIL COORDINATOR Unavailable Unavailable David, Zainab Kyara ANP-BC Unavailable [...] Unavailable David, Zainab Kyara ANP-BC Unavailable Unavailable Noel, L Messi [...] Unavailable Noel, L Messi CRAWFORD Unavailable Unavailable Onel, L Messi MD Unavailable Unavailable Noel, L [...] is protected by Article 27-F of the [facility] Public Health law. If you continue you may have access to information: Regarding HIV / AIDS; Provided by facilities licensed or operated by the [facility] Office of Mental Health; or Provided by the [facility] Office for People With Developmental Disabilities. If such information is present, then the following [facility] mandated warning applies: This information has been [...] law may result in a fine or prison sentence or both. A general authorization for the release of medical or other information is NOT sufficient authorization for further disc losure. Family History Family Member Name Family Member Gender Family Member Status Date o f Status Description Data Source(s) Unknown Male Problem [facility] ([facility]) Unknown Male Problem [facility] ([facility] ) Encounters Encounter Providers Location Date Indications Data Source(s ) Outpatient Attender: Kyara LOVELACEBCConsultant: Kyara GRAHAM-MAKSIM 10/21/2020 12:59:00 PM EST - 10/21/2020 12:59:00 PM [facility] Outpatient Attender: Kyara CASILLASonsultant: Kyara GRAHAM-MAKSIM 10/14/2020 08:55:00 AM EST - 10/14/2020 08:55:00 AM [facility] Outpatient Attender: Emily Enriquez/[place]/R eindl 09/25/2020 10:00:00 AM EST [facility] ([facility] Outpatient Attender: Emily Hensley RPA Zoe/[place]ios/R eindl 09/02/2020 08:45:00 AM EST [facility] ([facility] Outpatient Attender: Messi Noel MD Physical Therapy 08/29/2020 0 1:15:00 PM EST [facility] ([facility]) Outpatient Attender: Emily Hensley RPA Zoe/[place]/R eindl 08/04/2020 01:00:00 PM EDT [facility] ([facility]) Outpatient Attender: Kyara Ortiz ANP-BCConsultant: Kyara brar ANP-BC 07/21/2020 12:51:00 PM EDT - 07/21/2020 12:51:00 PM EDT [facility] Outpatient Attender: Kyara Ortiz ANP-BCConsultant: Kyara brar ANP-BC 06/19/2020 08:53:00 AM EDT - 06/19/2020 08:53:00 AM EDT [facility] Office Visit Attender: Messi Noel MD Physical Therapy 2019 03:30:00 PM EDT [facility] ([facility]) Outpatient Attender: Kyara Ortiz ANP-BCConsultant: Kyara brar ANP-BC 04/22/2020 08:53:00 AM EDT - 04/22/2020 08:53:00 AM EDT [facility] Outpatient Attender: Kyara Ortiz ANP-BCConsultant: Kyara brar ANP-BC 04/15/2020 09:03:00 AM EDT - 04/15/2020 09:03:00 AM EDT [facility] Outpatient Attender: Messi Noel MD Physical Therapy 04/08/2020 1 0:45:00 AM EDT [facility] ([facility]) Outpatient Attender: Yodit Harris DIRECT MAIL COORDINATOR ADULT PC 03/03/2020 09:01:03 PM EDT [facility] Outpatient Attender: Messi Noel MD Physical Therapy 02/26/2020 1 0:00:00 AM EDT [facility] ([facility]) Outpatient Attender: Messi Noel MD 01/17/2020 12:58 :00 PM EDT SPONDYLOLISTHERSIS, LUMBAR REGION [facility] SPONDYLOLISTHERSIS, LUMBAR REGION Outpatient Attender: Messi Noel MD Physical Therapy 01/15/2020 1 1:00:00 AM EDT [facility] ([facility] ) Outpatient [facility]: [facility]: Kyara ALEXIS 10/16/2019 09:20:00 AM EST - 10/16/2019 09:20:00 AM EST [facility] Outpatient Attender: Kyara ALEXIS Family Practice 04/2020 08:20:00 AM EST [facility] ([facility]) Immunizations Vaccine Date Status Description Data Source(s) New in 2011. IIV4 10/16/2019 08:45:00 AM EST completed [facility] ([facility]) Medications Medication Brand Name Start Date Product [...] 11/05/2020 12:00:00 AM EST act jorje [facility] ([facility]) 40 mg 10/09/2020 12:00:00 AM EST tablet [...] 12:00:00 A M EST ORAL active [facility] ([facility]) 5 mg 09/12/2020 12:00:00 AM EST [...] Epinephrine 07/21/2020 12:00:00 AM EDT active [facility] ([facility]) 24 HR Bupropion Hydrochloride 300 MG Extended [...] 07/2020 12:00:00 AM EDT ORAL active [facility] ([facility]) BLOOD-GLUCOSE METER 06/19/2020 12:00:00 AM EDT [...] Premium 06/19/2020 12:00:00 AM EDT active [facility] ([facility]) [facility] Blood Glucose Meter 06/19/2020 12:00:00 AM EDT active [facility] ([facility]) Lancets Micro Thin 33G 06/19/2020 12:00:00 AM EDT active [facility] ([facility]) 33 gauge 06/19/2020 12:00:00 AM EDT misc [...] TABLET BY MOUTH EVERY DAY SOLD: 07/17/2020 [facility] BLOOD SUGAR DIAGNOSTIC 06/19/2020 12:00:00 AM [...] Lactate 10/16/2019 12:00:00 AM EST active [facility] ([facility]) 300 mg 10/05/2019 12:00:00 AM EST [...] type / Coverage type Policy ID Covered green party ID Covered green party's relationship to andersen Policy Andersen Plan Information [facility] COMMUNITY PLAN [facility] [id number] SP [id number] [facility] COMMUNTY PLAN [id number] 18 [id number] [facility] COMMUNITY PLAN XIX [id number] 18 [id number] [facility]) O [id number] S [id number] [facility] COMMUNITY PLAN [facility] [id number] SP [id number] [facility]) O [id number] S [id number] [facility] COMMUNITY PLAN [facility] [id number] SP [id number] [facility]) O [id number] S [id number] [facility] COMMUNTY PLAN [id number] 18 [id number] [employer] BC[employer] P [id number] [place] [employer] Workers Compensation [id number] Self [id number] [place] Medigap Part B [id number] [facility] Community Plan Commercial [id number] Self [id number] [facility] Community Plan Medigap Part B [id number] Self [id number] [facility] Ins Fund () Workers Compensation [id number] Self [id number] [employer] BCYO P [id number] VYA [id number] [place] [employer] Workers Compensation [id number] Self [id number] BS [place] Medigap Part B [id number] [facility] Community Plan Commercial [id number] Self [id number] Medicaid Commercial [id number] Self [id number] SELF PAY ONLY [id number] SP [id number] [facility] COMMUNITY PLAN [facility] [id number] SP [id number] [facility] COMMUNITY PLAN [facility] [id number] [place] [employer] Compensation [id number] Self [id number] BS [place] Medigap Part B [id number] [facility] Community Plan Commercial [id number] Self [id number] [place] [employer] Compensation [id number] Self [id number] BS [place] Medigap Part B [id number] [facility] Community Plan Commercial [id number] Self [id number] [facility] COMMUNITY PLAN MCDO [id number] SP [id number] [facility] COMMUNITY PLAN XIX [id number] 18 [id number] [facility] Communty Plan Medicaid [id number] Self [id number] [place] [employer] Workers Compensation [id number] Self [id number] BS [place] Medigap Part B [id number] [facility] Community Plan Commercial [id number] Self [id number] [facility] O [id number] S [id number] [place] [id number] [place] [employer] Workers Compensation [id number] Self [id number] BS [place] Medigap Part B [id number] [facility] Community Plan Commercial [id number] Self [id number] [place] [employer] Workers Compensation [id number] Self [id number] BS [place] Medigap Part B [id number] [facility] Community Plan Commercial [id number] Self [id number] [facility] COMMUNITY PLAN MCDHMO [id number] SP [id number] [place] [employer] Compensation [id number] Self [id number] BS [place] Medigap Part B [id number] [place] [employer] Compensation [id number] Self [id number] BS [place] Medigap Part B [id number] [place] [id number] Self [id number] Medicaid Commercial [id number] Self [id number] [place] [employer] Workers Compensation [id number] Self [id number] BS [place] Medigap Part B [id number] [facility] Community Plan Commercial [id number] Self [id number] [place] [employer] Compensation [id number] Self [id number] BS [place] Medigap Part B [id number] [place] [employer] Compensation [id number] Self [id number] BS [place] Medigap Part B [id number] [place] [employer] Compensation [id number] Self [id number] BS [place] Medigap Part B [id number] [place] [employer] Compensation [id number] Self [id number] BS [place] Medigap Part B [id number] [place] [employer] Compensation [id number] Self [id number] [place] Medigap Part B [id number] [place] [employer] Compensation [id number] Self [id number] BS [place] Medigap Part B [id number] [facility] Plan Commercial [id number] Self [id number] [place] [employer] Compensation [id number] Self [id number] BS [place] Medigap Part B [id number] [facility] Plan Commercial [id number] Self [id number] [place] [employer] Compensation [id number] Self [id number] BS [place] Medigap Part B [id number] [facility] Plan Commercial [id number] Self [id number] [place] [employer] Compensation [id number] Self [id number] BS [place] Medigap Part B [id number] [facility] Plan Commercial [id number] Self [id number] [place] [employer] Compensation [id number] Self [id number] BS [place] Medigap Part B [id number] [facility] Plan Commercial [id number] Self [id number] [place] [employer] Compensation [id number] Self [id number] BS [place] Medigap Part B [id number] [facility] Community Plan Commercial [id number] Self [id number] [place] [employer] Compensation [id number] Self [id number] BS [place] Medigap Part B [id number] [facility] Community Plan Commercial [id number] Self [id number] [place] [employer] Compensation [id number] Self [id number] BS [place] Medigap Part B [id number] [facility] Community Plan Commercial [id number] Self [id number] [facility] COMMUNITY PLAN MCDO [id number] SP [id number] [facility] COMMUNITY PLAN MCDO [id number] SP [id number] MEDICAID M [id number] S [id number] MEDICAID [id number] SP [id number] [place]BS [place] PPO [id number] [place] [id number] SPO [id number] [id number] Sliding Fee Scale S [id number] S [id number] Problems, Conditions, and Diagnoses Code Display Name Description Problem Type Effective Dates Data Source(s) 48312171 Essential hypertension Essential hypertension Problem 08/04/2020 12:00:00 AM EDT [facility] ([facility], ) [id number] Essential hypertension Essential hypertension Problem 08/04/2020 12:00:00 AM EDT [facility] ([facility]) Other allergy, subsequent encounter Other allerg y, subsequent encounter Problem 04/22/2020 12:00:00 AM EDT [facility] ([facility]) [id number] Ex-smoker Ex-smoker Problem 04/22/2020 12:00:00 AM ED T MED[facility] ([facility]) 09754116 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 Pr oblem 04/22/2020 12:00:00 AM EDT [facility] ([facility]) [id number] Lumbar radiculopathy Lumbar radiculopathy Problem 04/22/2020 12:00:00 AM EDT [facility] ([facility]) [id number] Spondylolisthesis L5/S1 level Spondylolisthesis L5/S1 level Problem 04/22/2020 12:00:00 AM EDT [facility] ([facility]) 36171429 Degeneration of lumbar intervertebral di sc Degeneration of lumbar intervertebral disc Problem 04/22/2020 12:00:00 AM EDT [facility] ([facility]) [id number] Screening for malignant neoplasm of colo n Screening for malignant neoplasm of colon Problem 04/22/2020 12:00:00 AM EDT [facility] ([facility]) [id number] Renal function tests abnormal Renal function tests abn ormal Problem 04/22/2020 12:00:00 AM EDT [facility] ([facility]) [id number] Taking medication Taking medication Problem 04/22 12:00:00 AM EDT [facility] ([facility]) 767395803 Pure hypercholesterolemia Pure hypercholesterolemia Pr oblem 04/22/2020 12:00:00 AM EDT [facility] ([facility]) 50301480 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 Problem 04/22/2020 12:00:00 AM EDT [facility] ([facility]) R944 Abnormal results of kidney function stud ies Abnormal results of kidney function studies Diagnosis 10/14/2020 08:55:00 AM [facility] [id number] Other prison (current) drug therapy O ther prison (current) drug therapy Diagnosis 10/14/2020 08:55:00 AM [facility] E7800 Pure hypercholesterolemia, unspecified P ure hypercholesterolemia, unspecified Diagnosis 10/14/2020 08:55:00 AM [facility] E8342 Hypomagnesemia Hypomagnesemia Diagnosis 10/14/2020 08:55: 00 AM [facility] I700 Atherosclerosis of aorta Atherosclerosis of aorta Diag nosis 07/21/2020 12:51:00 PM EDT [facility] E278 Other specified disorders of adrenal gla nd Other specified disorders of adrenal gland Diagnosis 07/21/2020 12:51:00 PM EDT [facility] E162 Hypoglycemia, unspecified Hypoglycemia, unspecified Di agnosis 07/21/2020 12:51:00 PM EDT [facility] I10 Essential (primary) hypertension Essential (primary) h ypertension Diagnosis 07/21/2020 12:51:00 PM EDT [facility] M5416 Radiculopathy, lumbar region Radiculopathy, lumbar reg ion Diagnosis 10/16/2019 09:20:00 AM [facility] M4317 Spondylolisthesis, lumbosacral region Sp ondylolisthesis, lumbosacral region Diagnosis 10/16/2019 09:20:00 AM [facility] M5136 Other intervertebral disc degeneration, lumbar region Other intervertebral disc degeneration, lumbar region Diagnosis 10/16/2019 09:20:00 AM [facility] Surgeries/Procedures Procedure Description Date Indications Data Source(s) Physical Therapy Eval - Low Complexity 09/19/2020 12:0 0:00 AM EST [facility] ([facility] ) RADEX SPINE LUMBOSACRAL 2/3 VIEWS 08/29/2020 12:00:00 AM EST [facility] ([facility] ) Admin Patient Focused Health Risk Assessment Instrument 04/22/2020 12:00:00 AM EDT [facility] ([facility]) X-Ray Spine Lumbosacral Complete Inc Bending Views Min Of 6 01/15/2020 12:00:00 AM EDT [facility] ([facility] ) Brief Emotional/Behav Assessment W/ Scoring Doc Per Standard Inst 10/16/2019 12:00:00 AM EST [facility] ([facility]) Results ID Date Data Source [id number] 11/25/2020 09:15:00 AM EST [facility] ([facility], ) Name Value Range Interpretation Code Description Data Annelise rce(s) Supporting Document(s) Glucose, Fasting 86 mg/dL 70-100 Normal (applies to non-numeric results) [facility] ([facility], ) Blood Urea Nitrogen 23 mg/dL 7-18 Above high normal [facility] Creatinine For GFR 1.05 mg/dL 0.70-1.30 Normal (applies to non -numeric results) [facility] ([facility], ) Sodium Level 140 meq/L 136-145 Normal (applies to non-numeric res ults) [facility] ([facility], ) Potassium Serum 3.7 meq/L 3.5-5.1 Normal (applies to non-numeric results) [facility] ([facility]) Glomerular Filtration Rate Laboratory test result Normal (applies to non- numeric results) [facility]) <content>Units are mL/min/1.73 m2</content>
<content></content>
<content>Chronic Kidney Disease Staging per NKF:</content>
<content></content>
<content>Stage I & II GFR >=60 Normal to Mildly Decreased</content>
<content>Stage III GFR 30- 59 Moderately Decreased</content>
<content>Stage IV GFR 15-29 Severely Decreased</content>
<content>Stage V GFR <15 Very Little GFR Left</content>
<content>ESRD GFR <15 on SUPERINTENDENT REFUSE DISPOSAL</content>
<content></content> Anion Gap 7 meq/L 8-16 Below low normal [facility] ( [facility]) Carbon Dioxide Level 28 meq/L 21-32 Normal (applies to non-num cherelle results) [facility] ([facility]) Chloride Level 105 meq/L 98-107 Normal (applies to non-numeric r esults) [facility]) Calcium Level 9.1 mg/dL 8.5-10.1 Normal (applies to non-numeric re sults) [facility]) ID Date Data Source [id number] 11/25/2020 09:15:[address] [facility]) Name Value Range Interpretation Code Description Data Annelise rce(s) Supporting Document(s) White Blood Count 6.1 10 4.0-10.0 Normal (applies to non-numeri c results) [facility]) Hemoglobin 14.1 g/dL 13.5-17.5 Normal (applies to non-numeric resul ts) [facility]) Red Blood Count 4.66 10 4.30-6.10 Normal (applies to non-numeric results) [facility]) Mean Corpuscular Hemoglobin 30.3 pg 27.0-33.0 Norm al (applies to non-numeric results) [facility]) Hematocrit 43.2 % 42.0-52.0 Normal (applies to non-numeric resul ts) [facility] ([facility]) Mean Corpuscular Volume 92.7 fl 80.0-96.0 Normal ( applies to non-numeric results) [facility] [facility]) Mean Corpuscular HGB Conc 32.6 g/dL 32.0-36.5 Normal (applies to non-numeric results) [facility]) Platelet Count, Automated 216 10 150-450 Normal (applies to non-numeric results) [facility]) Red Cell Distribution Width 13.4 % 11.5-14.5 Norm al (applies to non-numeric results) [facility] ([facility]) Nucleated Red Blood Cell % 0.0 % 0-0 Normal (applies to n on-numeric results) [facility]) ID Date Data Source [id number] 11/25/2020 09:15:00 AM EST [facility]) Name Value Range Interpretation Code Description Data Annelise rce(s) Supporting Document(s) Glucose, Fasting 86 mg/dL 70-100 Normal (applies to non-numeric results) [facility] ([facility]) Blood Urea Nitrogen 23 mg/dL 7-18 Above high normal [facility] ([facility]) Glomerular Filtration Rate Laboratory test result Normal (applies to non- numeric results) [facility]) <content>Units are mL/min/1.73 m2</content>
<content></content>
<content>Chronic Kidney Disease Staging per NKF:</content>
<content></content>
<content>Stage I & II GFR >=60 Normal to Mildly Decreased</content>
<content>Stage III GFR 30- 59 Moderately Decreased</content>
<content>Stage IV GFR 15-29 Severely Decreased</content>
<content>Stage V GFR <15 Very Little GFR Left</content>
<content>ESRD GFR <15 on SUPERINTENDENT REFUSE DISPOSAL</content>
<content></content> Creatinine For GFR 1.05 mg/dL 0.70-1.30 Normal (applies to non -numeric results) [facility] ([facility]) Chloride Level 105 meq/L 98-107 Normal (applies to non-numeric r esults) [facility] ([facility]) Potassium Serum 3.7 meq/L 3.5-5.1 Normal (applies to non-numeric results) [facility] ([facility]) Sodium Level 140 meq/L 136-145 Normal (applies to non-numeric res ults) [facility] ([facility]) Carbon Dioxide Level 28 meq/L 21-32 Normal (applies to non-num cherelle results) [facility] ([facility]) Calcium Level 9.1 mg/dL 8.5-10.1 Normal (applies to non-numeric re sults) [facility] ([facility]) Anion Gap 7 meq/L 8-16 Below low normal [facility] ( [facility]) ID Date Data Source [id number] 11/25/2020 09:15:00 AM EST [facility] ([facility]) Name Value Range Interpretation Code Description Data Annelise rce(s) Supporting Document(s) Red Blood Count 4.66 10 4.30-6.10 Normal (applies to non-numeric results) [facility] ([facility]) Hemoglobin 14.1 g/dL 13.5-17.5 Normal (applies to non-numeric resul ts) [facility] ([facility]) White Blood Count 6.1 10 4.0-10.0 Normal (applies to non-numeri c results) [facility] ([facility]) Mean Corpuscular Volume 92.7 fl 80.0-96.0 Normal ( applies to non-numeric results) [facility] ([facility]) Hematocrit 43.2 % 42.0-52.0 Normal (applies to non-numeric resul ts) [facility] ([facility]) Mean Corpuscular Hemoglobin 30.3 pg 27.0-33.0 Norm al (applies to non-numeric results) [facility] ([facility]) Red Cell Distribution Width 13.4 % 11.5-14.5 Norm al (applies to non-numeric results) [facility] ([facility]) Mean Corpuscular HGB Conc 32.6 g/dL 32.0-36.5 Normal (applies to non-numeric results) [facility] ([facility]) Nucleated Red Blood Cell % 0.0 % 0-0 Normal (applies to n on-numeric results) [facility] ([facility]) Platelet Count, Automated 216 10 150-450 Normal (applies to non-numeric results) [facility] ([facility]) ID Date Data Source [id number] 10/17/2020 09:19:00 PM [facility] Name Value Range Interpretation Code Description Data Annelise rce(s) Supporting Document(s) Borrelia burgdorferi IgG+IgM Ab [Units/volume] in Serum <0.91 ISR 0. 00-0.90 [facility] Negative <0.91 Equivocal 0.91 - 1.09 Positive >1.09 Borrelia burgdorferi IgM Ab [Units/volume] in Serum by Immun oassay <0.80 index 0.00-0.79 [facility] Negative <0.80 Equivocal 0.80 - 1.19 Positive >1.19 IgM levels may peak at 3-6 weeks post infection, then gradually decline. ID Date Data Source [id number] 10/14/2020 07:09:00 PM [facility] Name Value Range Interpretation Code Description Data Annelise rce(s) Supporting Document(s) CVE PANEL [facility] LIPID PANEL Cholesterol [Mass/volume] in Serum or Plasma 201 MG/DL 131 - 200 H [facility] Deprecated Triglyceride [Mass/volume] in Serum or Plasma 180 MG/DL 3 5 - 160 H [facility] HDL 39 MG/DL 29 - 86 [facility] Cholesterol in LDL [Mass/volume] in Serum or Plasma by Direc t assay 123 mg/dL 65 - 175 [facility] Cholesterol.total/Cholesterol in HDL [Mass Ratio] in Serum o r Plasma 5.2 3.4 - 4.9 H [facility] LDL/HDL 3.15 1.00 - 3.55 [facility] ital CVE RISK CHOL/HDL LDL/HDLMEN: 1/2 AVERAGE 3.43 1.00 AVERAGE 4.97 3.55 2X AVERAGE 9.55 6.25 3X AVERAGE 23.99 7.99WOMEN: 1/2 AVERAGE 3.27 1.47 AVERAGE 4.44 3.22 2X AVERAGE 7.05 5.03 3X AVERAGE 11.04 6.14 ID Date Data Source [id number] 10/14/2020 07:09:00 PM EST [facility] Name Value Range Interpretation Code Description Data Annelise rce(s) Supporting Document(s) COMPREHENSIVE METABOLIC PANEL [facility] COMPREHENSIVE METABOLIC PANEL Sodium [Moles/volume] in Serum or Plasma 139 mEq/L 134 - 153 [facility] Potassium [Moles/volume] in Serum or Plasma 4.1 mEq/L 3.6 - 5.0 [facility] Chloride [Moles/volume] in Serum or Plasma 103 mEq/L 98 - 107 [facility] Carbon dioxide, total [Moles/volume] in Serum or Plasma 27 MEQ/L 22 - 30 [facility] Glucose [Mass/volume] in Serum or Plasma 94 MG/DL 65 - 110 [facility] BUN 21 MG/DL 7 - 21 [facility] Creatinine [Mass/volume] in Serum or Plasma 0.9 MG/DL 0.7 - 1.5 [facility] BUN/CREAT 23 8 - 27 [facility] Protein [Mass/volume] in Serum or Plasma 5.9 G/DL 6.3 - 8.2 L [facility] Albumin [Mass/volume] in Serum or Plasma 4.2 G/DL 3.9 - 5.0 [facility] Globulin [Mass/volume] in Serum by calculation 1.7 GM/DL 2.4 - 3.2 L [facility] A/G RATIO 2.5 0.8 - 2.0 H [facility] Calcium [Mass/volume] in Serum or Plasma 9.0 MG/DL 8.4 - 10.2 [facility] Bilirubin.total [Mass/volume] in Serum or Plasma <0.7 MG/DL 0.2 - 1.3 [facility] Alkaline phosphatase [Enzymatic activity/volume] in Serum or Plasma 104 U/L 38 - 126 [facility] Aspartate aminotransferase [Enzymatic activity/volume] in Serum or Plasma 23 U/L 5 - 40 [facility] Alanine aminotransferase [Enzymatic activity/volume] in Seru m or Plasma 22 U/L 7 - 56 [facility] Anion gap 3 in Serum or Plasma 9.0 mmol/L 8.0 - 16.0 [facility] AGE [address] [facility] NON-AA GFR >60 mL/min [facility] ital AFR AMER GFR >60 mL/min [facility] Ho sp[facility] Male GFR In terprentation 20-49 [...] >32 mL/min Normal ID Date Data Source [id number] 10/14/2020 06:51:00 PM [facility] Name Value Range Interpretation Code Description Data Annelise rce(s) Supporting Document(s) Prostate specific Ag [Mass/volume] in Serum or Plasma 0.58 ng/mL 0.00 - 4.00 [facility] \\BLDo\\PSA INTERPRETA TION\\BLDx\\ The PSA [...] be used interchangeably. ID Date Data Source [id number] 10/14/2020 06:51:00 PM [facility] Name Value Range Interpretation Code Description Data Annelise rce(s) Supporting Document(s) Thyrotropin [Units/volume] in Serum or Plasma by Detec tion limit <= 0.05 mIU/L 2.86 uIU/mL 0.47 - 5.01 [facility] ID Date Data Source [id number] 10/14/2020 06:47:00 PM [facility] Name Value Range Interpretation Code Description Data Annelise e(s) Supporting Document(s) Hemoglobin A1c/Hemoglobin.total in Blood 5.3 % 4.4 - 6.1 [facility] {A1]{HB] ID Date Data Source [id number] 10/14/2020 06:18:00 PM [facility] Name Value Range Interpretation Code Description Data Annelise rce(s) Supporting Document(s) CBC W/AUTOMATED DIFF [facility] COMPLETE BLOOD COUNT Leukocytes [#/volume] in Blood by Automated count 6.4 10^3/uL 4.2 - 1 1.0 [facility] Erythrocytes [#/volume] in Blood by Automated count 4.40 10^6/uL 4. 50 - 6.30 L [facility] Hemoglobin [Mass/volume] in Blood 13.5 g/dL 14.0 - 16.0 L [facility] Hematocrit [Volume Fraction] of Blood by Automated count 42.1 % 4 1.0 - 51.0 [facility] Erythrocyte mean corpuscular volume [Entitic volume] by Auto mated count 95.7 fL 80.0 - 94.0 H [facility] Erythrocyte mean corpuscular hemoglobin [Entitic mass] by Automated count 30.7 pg 27.0 - 34.0 [facility] Erythrocyte mean corpuscular hemoglobin concentration [Mass/volume] by Automated count 32.1 g/dL 31.0 - 36.0 [facility] Erythrocyte distribution width [Ratio] by Automated count 13.2 % 11.5 - 14.8 [facility] Platelets [#/volume] in Blood by Automated count 243 10^3/uL 150 - 45 0 [facility] Platelet mean volume [Entitic volume] in Blood by Automated count 11.0 fL 7.4 - 10.4 H [facility] Neutrophils/100 leukocytes in Blood by Automated count 60.6 % 37. 0 - 80.0 [facility] Lymphocytes/100 leukocytes in Blood by Manual count 23.1 % 25.0 - 40.0 L [facility] Monocytes/100 leukocytes in Blood by Automated count 13.0 % 3.0 - 8.0 H [facility] Eosinophils/100 leukocytes in Blood by Automated count 2.2 % 0.0 - 7.0 [facility] Basophils/100 leukocytes in Blood by Automated count 0.6 % 0.0 - 2.0 [facility] %IG 0.5 % 0.0 - 0.[address] [facility] %NRBC 0.0 % 0.0 - 0.0 [facility] Neutrophils [#/volume] in Blood by Automated count 3.88 10^3/uL 2.00 - 6.90 [facility] Lymphocytes [#/volume] in Blood by Automated count 1.48 10^3/uL 0.60 - 3.40 [facility] Monocytes [#/volume] in Blood by Automated count 0.83 10^3/uL 0.00 - 0.90 [facility] Eosinophils [#/volume] in Blood by Automated count 0.14 10^3/uL 0.00 - 0.70 [facility] Basophils [#/volume] in Blood by Automated count 0.04 10^3/uL 0.00 - 0.20 [facility] #IG 0.03 10^3/uL 0.00 - 0.10 [facility] #NRBC 0.00 10^3/uL 0.00 - 0.00 [facility] MANUAL DIFF NOT INDICATED [facility] RBC MORPH NOT INDICATED [facility] ID Date Data Source [id number] 10/14/2020 09:00:00 AM EST [facility] Name Value Range Interpretation Code Description Data Annelise rce(s) Supporting Document(s) Prostate specific Ag [Mass/volume] in Serum or Plasma 0.58 ng/mL 0.00 -4.00 [facility] ([facility]) Is patient fasting? N ID Date Data Source [id number] 10/14/2020 09:00:00 AM EST [facility] ([facility]) Name Value Range Interpretation Code Description Data Annelise rce(s) Supporting Document(s) Lyme IgG/IgM Ab Laboratory test result 0.00-0.90 [facility] ([facility]) Is patient fasting? N Lyme Disease Ab, Quant,IgM Laboratory test result 0.00-0.79 [facility] ([facility]) Is patient fasting? N ID Date Data Source [id number] 10/14/2020 09:00:00 AM EST [facility] ([facility]) Name Value Range Interpretation Code Description Data Annelise rce(s) Supporting Document(s) Thyrotropin [Units/volume] in Serum or Plasma 2.86 uIU/mL 0.47-5.01 [facility] ([facility]) Is patient fasting? N ID Date Data Source [id number] 10/14/2020 09:00:00 AM EST [facility] ([facility]) Name Value Range Interpretation Code Description Data Annelise rce(s) Supporting Document(s) Cve Panel Laboratory test result [facility] ([facility]) Is patient fasting? N Cholesterol 201 mg/dL 131-200 Above high normal [facility] ([facility]) Is patient fasting? N Triglycerides 180 mg/dL 35-160 Above high normal [facility] ([facility]) Is patient fasting? N HDL 39 mg/dL 29-86 [facility] ([facility]) Is patient fasting? N LDL 123 mg/dL 65-175 [facility] ([facility]) Is patient fasting? N Risk Factor 5.2 3.4-4.9 Above high normal [facility] ([facility]) Is patient fasting? N LDL/HDL 3.15 1.00-3.55 [facility] ([facility]) Is patient fasting? N ID Date Data Source [id number] 10/14/2020 09:00:00 AM EST [facility] ([facility]) Name Value Range Interpretation Code Description Data Annelise rce(s) Supporting Document(s) Hemoglobin A1c/Hemoglobin.total in Blood 5.3 % 4.4-6.1 [facility] ([facility]) Is patient fasting? N ID Date Data Source [id number] 10/14/2020 09:00:00 AM EST [facility] ([facility]) Name Value Range Interpretation Code Description Data Annelise rce(s) Supporting Document(s) Comprehensive Metabo Laboratory test result [facility] ([facility]) Is patient fasting? N Chloride 103 meq/L 98-107 [facility] ([facility]) Is patient fasting? N Sodium 139 meq/L 134-153 [facility] ([facility]) Is patient fasting? N Potassium 4.1 meq/L 3.6-5.0 [facility] ([facility]) Is patient fasting? N Glucose 94 mg/dL 65-110 [facility] ([facility]) Is patient fasting? N BUN 21 mg/dL 7-21 [facility] ([facility]) Is patient fasting? N Co2 27 meq/L 22-30 [facility] ([facility]) Is patient fasting? N BUN/Creat 23 8-27 [facility] ([facility]) Is patient fasting? N Creatinine 0.9 mg/dL 0.7-1.5 [facility] ([facility]) Is patient fasting? N Albumin 4.2 g/dL 3.9-5.0 [facility] ([facility]) Is patient fasting? N Total Protein 5.9 g/dL 6.3-8.2 Below low normal [facility] ([facility]) Is patient fasting? N Calcium 9.0 mg/dL 8.4-10.2 [facility] ([facility]) Is patient fasting? N A/G Ratio 2.5 0.8-2.0 Above high normal [facility] ([facility]) Is patient fasting? N Globulin 1.7 GM/DL 2.4-3.2 Below low normal [facility] ( [facility]) Is patient fasting? N Alkaline Phos 104 U/L 38-126 [facility] ([facility]) Is patient fasting? N Total Bili Laboratory test result 0.2-1.3 [facility] ([facility]) Is patient fasting? N Sgot/Ast 23 U/L 5-40 [facility] ([facility]) Is patient fasting? N SGPT/Alt 22 U/L 7-56 [facility] ([facility]) Is patient fasting? N Age 55 yrs [facility] ([facility]) Is patient fasting? N Anion Gap 9.0 mmol/L 8.0-16.0 [facility] ([facility]) Is patient fasting? N Non-Aa GFR Laboratory test result [facility] ([facility]) Is patient fasting? N Afr Amer GFR Laboratory test result [facility] ([facility]) Is patient fasting? N ID Date Data Source [id number] 10/14/2020 09:00:00 AM EST [facility] ([facility]) Name Value Range Interpretation Code Description Data Annelise rce(s) Supporting Document(s) CBC W/Automated Diff Laboratory test result [facility] ([facility]) Is patient fasting? N RBC 4.40 10^6/uL 4.50-6.30 Below low normal [facility] ([facility]) Is patient fasting? N Hemoglobin 13.5 g/dL 14.0-16.0 Below low normal [facility] ( [facility]) Is patient fasting? N WBC 6.4 10^3/uL 4.2-11.0 [facility] ([facility]) Is patient fasting? N MCV 95.7 fL 80.0-94.0 Above high normal [facility] ([facility]) Is patient fasting? N Hematocrit 42.1 % 41.0-51.0 [facility] ([facility]) Is patient fasting? N RDW 13.2 % 11.5-14.8 [facility] ([facility]) Is patient fasting? N MCH 30.7 pg 27.0-34.0 [facility] ([facility]) Is patient fasting? N MCHC 32.1 g/dL 31.0-36.0 [facility] ([facility]) Is patient fasting? N MPV 11.0 fL 7.4-10.4 Above high normal [facility] ([facility]) Is patient fasting? N Platelets 243 10^3/uL 150-450 [facility] ([facility]) Is patient fasting? N Neut 60.6 % 37.0-80.0 [facility] ([facility]) Is patient fasting? N [place] 13.0 % 3.0-8.0 Above high normal [facility] ([facility]) Is patient fasting? N Lymph 23.1 % 25.0-40.0 Below low normal [facility] ( [facility]) Is patient fasting? N Eos 2.2 % 0.0-7.0 [facility] ([facility]) Is patient fasting? N Baso 0.6 % 0.0-2.0 [facility] ([facility]) Is patient fasting? N %NRBC 0.0 % 0.0-0.0 [facility] ([facility]) Is patient fasting? N %Ig 0.5 % 0.0-0.0 Above high normal [facility] ([facility]) Is patient fasting? N #Neut 3.88 10^3/uL 2.00-6.90 [facility] ([facility]) Is patient fasting? N #Lymph 1.48 10^3/uL 0.60-3.40 [facility] ([facility]) Is patient fasting? N #[place] 0.83 10^3/uL 0.00-0.90 [facility] ([facility]) Is patient fasting? N #Eos 0.14 10^3/uL 0.00-0.70 [facility] ([facility]) Is patient fasting? N #Baso 0.04 10^3/uL 0.00-0.20 [facility] ([facility]) Is patient fasting? N #Ig 0.03 10^3/uL 0.00-0.10 [facility] ([facility]) Is patient fasting? N Manual Diff Laboratory test result [facility] ([facility]) Is patient fasting? N #NRBC 0.00 10^3/uL 0.00-0.00 [facility] ([facility]) Is patient fasting? N RBC Morph Laboratory test result [facility] ([facility]) Is patient fasting? N ID Date Data Source [id number] 06/19/2020 09:27:00 AM EDT [facility] ([facility]) Name Value Range Interpretation Code Description Data Annelise rce(s) Supporting Document(s) Glucose [Mass/volume] in Capillary blood by Glucometer 100 [facility] ([facility]) ID Date Data Source [id number] 04/24/2020 12:00:00 AM EDT [facility] Noel MD Patient Name: LEONARDO ALTMAN [facility] 1965[facility] [id number] Date of Exam: 04/24/2020#: Fax: [phone] EXAM: [...] rce(s) Supporting Document(s) ID Date Data Source [id number] 04/15/2020 09:05:00 AM EDT [facility] ([facility]) Name Value Range Interpretation Code Description Data Annelise rce(s) Supporting Document(s) Prostate Specific Ag,Serum 0.5 ng/mL 0.0-4.0 [facility] ([facility]) Is patient fasting? Y Reflex Criteria Laboratory test result [facility] ([facility]) Is patient fasting? Y ID Date Data Source [id number] 04/15/2020 09:05:00 AM EDT [facility] ([facility]) Name Value Range Interpretation Code Description Data Annelise rce(s) Supporting Document(s) Thyrotropin [Units/volume] in Serum or Plasma 2.38 uIU/mL 0.47-5.01 [facility] ([facility]) Is patient fasting? Y ID Date Data Source [id number] 04/15/2020 09:05:00 AM EDT [facility] ([facility]) Name Value Range Interpretation Code Description Data Annelise rce(s) Supporting Document(s) Triglycerides 280 mg/dL 35-160 Above high normal [facility] ([facility]) Is patient fasting? Y Cve Panel Laboratory test result [facility] ([facility]) Is patient fasting? Y Cholesterol 238 mg/dL 131-200 Above high normal [facility] ([facility]) Is patient fasting? Y LDL 141 mg/dL 65-175 [facility] ([facility]) Is patient fasting? Y HDL 34 mg/dL 29-86 [facility] ([facility]) Is patient fasting? Y LDL/HDL 4.15 1.00-3.55 Above high normal [facility] ([facility]) Is patient fasting? Y Risk Factor 7.0 3.4-4.9 Above high normal [facility] ([facility]) Is patient fasting? Y ID Date Data Source [id number] 04/15/2020 09:05:00 AM EDT [facility] ([facility]) Name Value Range Interpretation Code Description Data Annelise rce(s) Supporting Document(s) Hemoglobin A1c/Hemoglobin.total in Blood 5.2 % 4.4-6.1 [facility] ([facility]) Is patient fasting? Y ID Date Data Source [id number] 04/15/2020 09:05:00 AM EDT [facility] ([facility]) Name Value Range Interpretation Code Description Data Annelise rce(s) Supporting Document(s) Sodium 140 meq/L 134-153 [facility] ([facility]) Is patient fasting? Y Comprehensive Metabo Laboratory test result [facility] ([facility]) Is patient fasting? Y Potassium 4.6 meq/L 3.6-5.0 [facility] ([facility]) Is patient fasting? Y Chloride 105 meq/L 98-107 [facility] ([facility]) Is patient fasting? Y Co2 27 meq/L 22-30 [facility] ([facility]) Is patient fasting? Y Creatinine 1.0 mg/dL 0.7-1.5 [facility] ([facility]) Is patient fasting? Y Glucose 97 mg/dL 65-110 [facility] ([facility]) Is patient fasting? Y BUN 18 mg/dL 7-21 [facility] ([facility]) Is patient fasting? Y BUN/Creat 18 8-27 [facility] ([facility]) Is patient fasting? Y Albumin 4.2 g/dL 3.9-5.0 [facility] ([facility]) Is patient fasting? Y Total Protein 6.3 g/dL 6.3-8.2 [facility] ([facility]) Is patient fasting? Y A/G Ratio 2.0 0.8-2.0 [facility] ([facility]) Is patient fasting? Y Globulin 2.1 GM/DL 2.4-3.2 Below low normal [facility] ( [facility]) Is patient fasting? Y Calcium 9.1 mg/dL 8.4-10.2 [facility] ([facility]) Is patient fasting? Y Total Bili Laboratory test result 0.2-1.3 [facility] ([facility]) Is patient fasting? Y Alkaline Phos 99 U/L 38-126 [facility] ([facility]) Is patient fasting? Y Sgot/Ast 21 U/L 5-40 [facility] ([facility]) Is patient fasting? Y Anion Gap 8.0 mmol/L 8.0-16.0 [facility] ([facility]) Is patient fasting? Y SGPT/Alt 19 U/L 7-56 [facility] ([facility]) Is patient fasting? Y Afr Amer GFR Laboratory test result [facility] ([facility]) Is patient fasting? Y Non-Aa GFR Laboratory test result [facility] ([facility]) Is patient fasting? Y Age 54 yrs [facility] ([facility]) Is patient fasting? Y ID Date Data Source [id number] 04/15/2020 09:05:00 AM EDT [facility] ([facility]) Name Value Range Interpretation Code Description Data Annelise rce(s) Supporting Document(s) CBC W/Automated Diff Laboratory test result [facility] ([facility]) Is patient fasting? Y WBC 7.2 10^3/uL 4.2-11.0 [facility] ([facility]) Is patient fasting? Y RBC 4.56 10^6/uL 4.50-6.30 [facility] ([facility]) Is patient fasting? Y Hemoglobin 14.0 g/dL 14.0-16.0 [facility] ([facility]) Is patient fasting? Y Hematocrit 43.5 % 41.0-51.0 [facility] ([facility]) Is patient fasting? Y MCH 30.7 pg 27.0-34.0 [facility] ([facility]) Is patient fasting? Y MCV 95.4 fL 80.0-94.0 Above high normal [facility] ([facility]) Is patient fasting? Y Platelets 197 10^3/uL 150-450 [facility] ([facility]) Is patient fasting? Y RDW 13.8 % 11.5-14.8 [facility] ([facility]) Is patient fasting? Y MCHC 32.2 g/dL 31.0-36.0 [facility] ([facility]) Is patient fasting? Y Neut 62.5 % 37.0-80.0 [facility] ([facility]) Is patient fasting? Y MPV 11.3 fL 7.4-10.4 Above high normal [facility] ([facility]) Is patient fasting? Y [place] 10.8 % 3.0-8.0 Above high normal [facility] ([facility]) Is patient fasting? Y Eos 2.2 % 0.0-7.0 [facility] ([facility]) Is patient fasting? Y Lymph 23.6 % 25.0-40.0 Below low normal [facility] ( [facility]) Is patient fasting? Y Baso 0.6 % 0.0-2.0 [facility] ([facility]) Is patient fasting? Y %Ig 0.3 % 0.0-0.0 Above high normal [facility] ([facility]) Is patient fasting? Y #Lymph 1.70 10^3/uL 0.60-3.40 [facility] ([facility]) Is patient fasting? Y %NRBC 0.0 % 0.0-0.0 [facility] ([facility]) Is patient fasting? Y #Neut 4.51 10^3/uL 2.00-6.90 [facility] ([facility]) Is patient fasting? Y #[place] 0.78 10^3/uL 0.00-0.90 [facility] ([facility]) Is patient fasting? Y #Eos 0.16 10^3/uL 0.00-0.70 [facility] ([facility]) Is patient fasting? Y #Ig 0.02 10^3/uL 0.00-0.10 [facility] ([facility]) Is patient fasting? Y #NRBC 0.00 10^3/uL 0.00-0.00 [facility] ([facility]) Is patient fasting? Y #Baso 0.04 10^3/uL 0.00-0.20 [facility] ([facility]) Is patient fasting? Y Manual Diff Laboratory test result M [facility]ENT ([facility]) Is patient fasting? Y RBC Morph Laboratory test result [facility] ([facility]) Is patient fasting? Y ID Date Data Source [id number] 04/18/2020 06:37:00 AM EDT [facility] Name Value Range Interpretation Code Description Data Annelise rce(s) Supporting Document(s) Prostate specific Ag [Mass/volume] in Serum or Plasma 0.5 ng/mL 0.0- 4.0 [facility] Cathryn ECLIA methodology.According to the [employer], Serum PSA shoulddecrease and remain at undetectable levels after radicalprostatectomy. The AUA defines biochemical recurrence as an initialPSA value 0.2 ng/mL or greater followed by a subsequent confirmatoryPSA value 0.2 ng/mL or greater.Values obtained with different assay methods or kits cannot be usedinterchangeably. Results cannot be interpreted as absolute evidenceof the presence or absence of malignant disease. Reflex Criteria COMMENT [facility] The percent free PSA is performed on a r eflex basis only when thetotal PSA is between 4.0 and 10.0 ng/mL. ID Date Data Source [id number] 04/15/2020 05:02:00 PM EDT [facility] Name Value Range Interpretation Code Description Data Annelise rce(s) Supporting Document(s) Thyrotropin [Units/volume] in Serum or Plasma by Detec tion limit <= 0.05 mIU/L 2.38 uIU/mL 0.47 - 5.01 [facility] ID Date Data Source [id number] 04/15/2020 04:53:00 PM EDT [facility] Name Value Range Interpretation Code Description Data Annelise rce(s) Supporting Document(s) Hemoglobin A1c/Hemoglobin.total in Blood 5.2 % 4.4 - 6.1 [facility] {A1]{HB] ID Date Data Source [id number] 04/15/2020 04:53:00 PM EDT [facility] Name Value Range Interpretation Code Description Data Annelise rce(s) Supporting Document(s) [facility] Cholesterol [Mass/volume] in Serum or Plasma 238 MG/DL 131 - 200 H [facility] Deprecated Triglyceride [Mass/volume] in Serum or Plasma 280 MG/DL 3 5 - 160 H [facility] HDL 34 MG/DL 29 - 86 [facility] Cholesterol in LDL [Mass/volume] in Serum or Plasma by Direc t assay 141 mg/dL 65 - 175 [facility] Cholesterol.total/Cholesterol in HDL [Mass Ratio] in Serum o r Plasma 7.0 3.4 - 4.9 H [facility] LDL/HDL 4.15 1.00 - 3.55 H [facility] ital CVE RISK CHOL/HDL LDL/HDLMEN: 1/2 AVERAGE 3.43 1.00 AVERAGE 4.97 3.55 2X AVERAGE 9.55 6.25 3X AVERAGE 23.99 7.99WOMEN: 1/2 AVERAGE 3.27 1.47 AVERAGE 4.44 3.22 2X AVERAGE 7.05 5.03 3X AVERAGE 11.04 6.14 ID Date Data Source [id number] 04/15/2020 04:49:00 PM EDT [facility] Name Value Range Interpretation Code Description Data Annelise rce(s) Supporting Document(s) COMPREHENSIVE METABOLIC PANEL [facility] COMPREHENSIVE METABOLIC PANEL Sodium [Moles/volume] in Serum or Plasma 140 mEq/L 134 - 153 [facility] Potassium [Moles/volume] in Serum or Plasma 4.6 mEq/L 3.6 - 5.0 [facility] Chloride [Moles/volume] in Serum or Plasma 105 mEq/L 98 - 107 [facility] Carbon dioxide, total [Moles/volume] in Serum or Plasma 27 MEQ/L 22 - 30 [facility] Glucose [Mass/volume] in Serum or Plasma 97 MG/DL 65 - 110 [facility] BUN 18 MG/DL 7 - 21 [facility] Creatinine [Mass/volume] in Serum or Plasma 1.0 MG/DL 0.7 - 1.5 [facility] BUN/CREAT 18 8 - 27 [facility] Protein [Mass/volume] in Serum or Plasma 6.3 G/DL 6.3 - 8.2 [facility] Albumin [Mass/volume] in Serum or Plasma 4.2 G/DL 3.9 - 5.0 [facility] Globulin [Mass/volume] in Serum by calculation 2.1 GM/DL 2.4 - 3.2 L [facility] A/G RATIO 2.0 0.8 - 2.0 [facility] Calcium [Mass/volume] in Serum or Plasma 9.1 MG/DL 8.4 - 10.2 [facility] Bilirubin.total [Mass/volume] in Serum or Plasma <0.7 MG/DL 0.2 - 1.3 [facility] Alkaline phosphatase [Enzymatic activity/volume] in Serum or Plasma 99 U/L 38 - 126 [facility] Aspartate aminotransferase [Enzymatic activity/volume] in Serum or Plasma 21 U/L 5 - 40 [facility] Alanine aminotransferase [Enzymatic activity/volume] in Seru m or Plasma 19 U/L 7 - 56 [facility] Anion gap 3 in Serum or Plasma 8.0 mmol/L 8.0 - 16.0 [facility] AGE 54 yrs [facility] NON-AA GFR >60 mL/min [facility] ital AFR AMER GFR >60 mL/min [facility] Male GFR In terprentation 20-49 [...] >32 mL/min Normal ID Date Data Source [id number] 04/15/2020 04:29:00 PM EDT [facility] Name Value Range Interpretation Code Description Data Annelise rce(s) Supporting Document(s) CBC W/AUTOMATED DIFF [facility] COMPLETE BLOOD COUNT Leukocytes [#/volume] in Blood by Automated count 7.2 10^3/uL 4.2 - 1 1.0 [facility] Erythrocytes [#/volume] in Blood by Automated count 4.56 10^6/uL 4. 50 - 6.30 [facility] Hemoglobin [Mass/volume] in Blood 14.0 g/dL 14.0 - 16.0 [facility] Hematocrit [Volume Fraction] of Blood by Automated count 43.5 % 4 1.0 - 51.0 [facility] Erythrocyte mean corpuscular volume [Entitic volume] by Auto mated count 95.4 fL 80.0 - 94.0 H [facility] Erythrocyte mean corpuscular hemoglobin [Entitic mass] by Automated count 30.7 pg 27.0 - 34.0 [facility] Erythrocyte mean corpuscular hemoglobin concentration [Mass/volume] by Automated count 32.2 g/dL 31.0 - 36.0 [facility] Erythrocyte distribution width [Ratio] by Automated count 13.8 % 11.5 - 14.8 [facility] Platelets [#/volume] in Blood by Automated count 197 10^3/uL 150 - 45 0 [facility] Platelet mean volume [Entitic volume] in Blood by Automated count 11.3 fL 7.4 - 10.4 H [facility] Neutrophils/100 leukocytes in Blood by Automated count 62.5 % 37. 0 - 80.0 [facility] Lymphocytes/100 leukocytes in Blood by Manual count 23.6 % 25.0 - 40.0 L [facility] Monocytes/100 leukocytes in Blood by Automated count 10.8 % 3.0 - 8.0 H [facility] Eosinophils/100 leukocytes in Blood by Automated count 2.2 % 0.0 - 7.0 [facility] Basophils/100 leukocytes in Blood by Automated count 0.6 % 0.0 - 2.0 [facility] %IG 0.3 % 0.0 - 0.0 [facility] %NRBC 0.0 % 0.0 - 0.0 [facility] Neutrophils [#/volume] in Blood by Automated count 4.51 10^3/uL 2.00 - 6.90 [facility] Lymphocytes [#/volume] in Blood by Automated count 1.70 10^3/uL 0.60 - 3.40 [facility] Monocytes [#/volume] in Blood by Automated count 0.78 10^3/uL 0.00 - 0.90 [facility] Eosinophils [#/volume] in Blood by Automated count 0.16 10^3/uL 0.00 - 0.70 [facility] Basophils [#/volume] in Blood by Automated count 0.04 10^3/uL 0.00 - 0.20 [facility] #IG 0.02 10^3/uL 0.00 - 0.10 [facility] #NRBC 0.00 10^3/uL 0.00 - 0.00 [facility] MANUAL DIFF NOT INDICATED [facility] RBC MORPH NOT INDICATED [facility] ID Date Data Source [id number] 01/18/2020 08:06:00 AM EDT [facility] [address] [place] [address] [phone] NAME SEX PT STATUS ACCOUNT NUMBER LARRY ALTMAN JR M REG REF [id number] ORDERING PHYSICIAN LOCATION MEDICAL RECORD NO. Messi Noel MD CT [id number] ATTENDING PHYSICIAN DATE OF DATE OF EXAM/TIME [...] rce(s) Supporting Document(s) ID Date Data Source [id number] 10/16/2019 10:30:00 AM EST [facility] ([facility]) Name Value Range Interpretation Code Description Data Annelise rce(s) Supporting Document(s) Reflex Criteria COMMENT [facility] ([facility]) FASTING~.~.~E8342 Prostate Specific Ag,Serum 0.6 ng/mL 0.0-4.0 [facility] ([facility]) FASTING~.~.~E8342 ID Date Data Source [id number] 10/16/2019 10:30:00 AM EST [facility] ([facility]) Name Value Range Interpretation Code Description Data Annelise rce(s) Supporting Document(s) Thyrotropin [Units/volume] in Serum or Plasma 2.40 uIU/mL 0.47-5.01 [facility] ([facility]) FASTING~.~.~E8342 ID Date Data Source [id number] 10/16/2019 10:30:00 AM EST [facility] ([facility]) Name Value Range Interpretation Code Description Data Annelise rce(s) Supporting Document(s) Cve Panel (SEE NOTE) [facility] ([facility]) FASTING~.~.~E8342 Triglycerides 202 mg/dL 35-160 [facility] FASTING~.~.~E8342 HDL 39 mg/dL 29-86 [facility] ([facility]) FASTING~.~.~E8342 Cholesterol 237 mg/dL 131-200 Above high normal [facility] ([facility]) FASTING~.~.~E8342 LDL 175 mg/dL 65-175 [facility] FASTING~.~.~E8342 Risk Factor 6.1 3.4-4.9 Above high normal [facility] ([facility]) FASTING~.~.~E8342 LDL/HDL 4.49 1.00-3.55 Above high normal [facility] ([facility]) FASTING~.~.~E8342 ID Date Data Source [id number] 10/16/2019 10:30:00 AM EST [facility] ([facility]) Name Value Range Interpretation Code Description Data Annelise rce(s) Supporting Document(s) Hemoglobin A1c/Hemoglobin.total in Blood 5.4 % 4.4-6.1 [facility] ([facility]) FASTING~.~.~E8342 ID Date Data Source [id number] 10/16/2019 10:30:00 AM EST [facility] ([facility]) Name Value Range Interpretation Code Description Data Annelise rce(s) Supporting Document(s) Sodium 141 meq/L 134-153 [facility] ([facility]) FASTING~.~.~E8342 Comprehensive Metabo (SEE NOTE) [facility] ( [facility]) FASTING~.~.~E8342 Chloride 104 meq/L 98-107 [facility] ([facility]) FASTING~.~.~E8342 Co2 28 meq/L 22-30 [facility] ([facility]) FASTING~.~.~E8342 Potassium 4.4 meq/L 3.6-5.0 [facility] FASTING~.~.~E8342 Creatinine 1.0 mg/dL 0.7-1.5 [facility] ([facility]) FASTING~.~.~E8342 Glucose 98 mg/dL 65-110 [facility]) FASTING~.~.~E8342 BUN 15 mg/dL 7-21 [facility]) FASTING~.~.~E8342 Albumin 4.4 g/dL 3.9-5.0 [facility] ([facility]) FASTING~.~.~E8342 Total Protein 6.8 g/dL 6.3-8.2 [facility] ([facility]) FASTING~.~.~E8342 BUN/Creat 15 8-27 [facility]) FASTING~.~.~E8342 Globulin 2.4 GM/DL 2.4-3.2 [facility] ([facility]) FASTING~.~.~E8342 A/G Ratio 1.8 0.8-2.0 [facility] ([facility]) FASTING~.~.~E8342 Calcium 9.7 mg/dL 8.4-10.2 [facility]) FASTING~.~.~E8342 Sgot/Ast 19 U/L 5-40 [facility]) FASTING~.~.~E8342 Alkaline Phos 104 U/L 38-126 [facility]) FASTING~.~.~E8342 Total Bili <0.7 mg/dL 0.2-1.3 [facility] ([facility]) FASTING~.~.~E8342 Anion Gap 9.0 mmol/L 8.0-16.0 [facility] ([facility]) FASTING~.~.~E8342 Age 54 yrs [facility] ([facility]) FASTING~.~.~E8342 SGPT/Alt 17 U/L 7-56 [facility] ([facility]) FASTING~.~.~E8342 Non-Aa GFR >60 mL/min [facility] ([facility]) FASTING~.~.~E8342 Afr Amer GFR >60 mL/min [facility]) FASTING~.~.~E8342 ID Date Data Source [id number] 10/16/2019 10:30:00 AM EST [facility] ([facility]) Name Value Range Interpretation Code Description Data Annelise rce(s) Supporting Document(s) WBC 7.6 10^3/uL 4.2-11.0 [facility]) FASTING~.~.~E8342 CBC W/Automated Diff (SEE NOTE) [facility] ( [facility]) FASTING~.~.~E8342 Hemoglobin 15.2 g/dL 14.0-16.0 [facility] ([facility]) FASTING~.~.~E8342 RBC 4.92 10^6/uL 4.50-6.30 [facility]) FASTING~.~.~E8342 Hematocrit 46.3 % 41.0-51.0 [facility] ([facility]) FASTING~.~.~E8342 MCH 30.9 pg 27.0-34.0 [facility] ([facility]) FASTING~.~.~E8342 MCV 94.1 fL 80.0-94.0 Above high normal [facility] ([facility]) FASTING~.~.~E8342 RDW 13.9 % 11.5-14.8 [facility] ([facility]) FASTING~.~.~E8342 Platelets 197 10^3/uL 150-450 [facility]) FASTING~.~.~E8342 MCHC 32.8 g/dL 31.0-36.0 [facility] FASTING~.~.~E8342 MPV 11.6 fL 7.4-10.4 Above high normal [facility] ([facility]) FASTING~.~.~E8342 Lymph 23.3 % 25.0-40.0 Below low normal [facility] ( [facility]) FASTING~.~.~E8342 Neut 63.5 % 37.0-80.0 [facility] ([facility]) FASTING~.~.~E8342 [place] 9.7 % 3.0-8.0 Above high normal [facility] ([facility]) FASTING~.~.~E8342 Baso 0.7 % 0.0-2.0 [facility] ([facility]) FASTING~.~.~E8342 Eos 1.9 % 0.0-7.0 [facility] ([facility]) FASTING~.~.~E8342 %Ig 0.9 % 0.0-0.0 Above high normal [facility] ([facility]) FASTING~.~.~E8342 #Neut 4.81 10^3/uL 2.00-6.90 [facility] ([facility]) FASTING~.~.~E8342 %NRBC 0.0 % 0.0-0.0 [facility] ([facility]) FASTING~.~.~E8342 #[place] 0.73 10^3/uL 0.00-0.90 [facility] ([facility]) FASTING~.~.~E8342 #Lymph 1.76 10^3/uL 0.60-3.40 [facility] ([facility]) FASTING~.~.~E8342 #Eos 0.14 10^3/uL 0.00-0.70 [facility] ([facility]) FASTING~.~.~E8342 #Baso 0.05 10^3/uL 0.00-0.20 [facility] ([facility]) FASTING~.~.~E8342 #Ig 0.07 10^3/uL 0.00-0.10 [facility] ([facility]) FASTING~.~.~E8342 #NRBC 0.00 10^3/uL 0.00-0.00 [facility] ([facility]) FASTING~.~.~E8342 Manual Diff NOT INDICATED [facility] ([facility]) FASTING~.~.~E8342 RBC Morph NOT INDICATED [facility] ([facility]) FASTING~.~.~E8342 ID Date Data Source [id number] 10/18/2019 06:48:00 AM EST [facility] Name Value Range Interpretation Code Description Data Annelise rce(s) Supporting Document(s) Prostate specific Ag [Mass/volume] in Serum or Plasma 0.6 ng/mL 0.0- 4.0 [facility] Cathryn ECLIA methodology.According to the [employer], Serum PSA shoulddecrease and remain at undetectable levels after radicalprostatectomy. The AUA defines biochemical recurrence as an initialPSA value 0.2 ng/mL or greater followed by a subsequent confirmatoryPSA value 0.2 ng/mL or greater.Values obtained with different assay methods or kits cannot be usedinterchangeably. Results cannot be interpreted as absolute evidenceof the presence or absence of malignant disease. Reflex Criteria COMMENT [facility] The percent free PSA is performed on a r eflex basis only when thetotal PSA is between 4.0 and 10.0 ng/mL. ID Date Data Source [id number] 10/16/2019 05:44:00 PM EST [facility] Name Value Range Interpretation Code Description Data Annelise rce(s) Supporting Document(s) CVE PANEL [facility] LIPID PANEL Cholesterol [Mass/volume] in Serum or Plasma 237 MG/DL 131 - 200 H [facility] Deprecated Triglyceride [Mass/volume] in Serum or Plasma 202 MG/DL 3 5 - 160 H [facility] HDL 39 MG/DL 29 - 86 [facility] Cholesterol in LDL/Cholesterol in HDL [Mass Ratio] in Serum or Plasma 175 mg/dL 65 - 175 [facility] Cholesterol.total/Cholesterol in HDL [Mass Ratio] in Serum o r Plasma 6.1 3.4 - 4.9 H [facility] LDL/HDL 4.49 1.00 - 3.55 H [facility] ital CVE RISK CHOL/HDL LDL/HDLMEN: 1/2 AVERAGE 3.43 1.00 AVERAGE 4.97 3.55 2X AVERAGE 9.55 6.25 3X AVERAGE 23.99 7.99WOMEN: 1/2 AVERAGE 3.27 1.47 AVERAGE 4.44 3.22 2X AVERAGE 7.05 5.03 3X AVERAGE 11.04 6.14 ID Date Data Source [id number] 10/16/2019 05:41:00 PM [facility] Name Value Range Interpretation Code Description Data Annelise rce(s) Supporting Document(s) Thyrotropin [Units/volume] in Serum or Plasma by Detec tion limit <= 0.05 mIU/L 2.40 uIU/mL 0.47 - 5.01 [facility] ID Date Data Source [id number] 10/16/2019 05:39:00 PM EST [facility] Name Value Range Interpretation Code Description Data Annelise rce(s) Supporting Document(s) COMPREHENSIVE METABOLIC PANEL [facility] COMPREHENSIVE METABOLIC PANEL Sodium [Moles/volume] in Serum or Plasma 141 mEq/L 134 - 153 [facility] Potassium [Moles/volume] in Serum or Plasma 4.4 mEq/L 3.6 - 5.0 [facility] Chloride [Moles/volume] in Serum or Plasma 104 mEq/L 98 - 107 [facility] Carbon dioxide, total [Moles/volume] in Serum or Plasma 28 MEQ/L 22 - 30 [facility] Glucose [Mass/volume] in Serum or Plasma 98 MG/DL 65 - 110 [facility] BUN 15 MG/DL 7 - 21 [facility] Creatinine [Mass/volume] in Serum or Plasma 1.0 MG/DL 0.7 - 1.5 [facility] BUN/CREAT 15 8 - 27 [facility] Protein [Mass/volume] in Serum or Plasma 6.8 G/DL 6.3 - 8.2 [facility] Albumin [Mass/volume] in Serum or Plasma 4.4 G/DL 3.9 - 5.0 [facility] Globulin [Mass/volume] in Serum by calculation 2.4 GM/DL 2.4 - 3.2 [facility] A/G RATIO 1.8 0.8 - 2.0 [facility] Calcium [Mass/volume] in Serum or Plasma 9.7 MG/DL 8.4 - 10.2 [facility] Bilirubin.total [Mass/volume] in Serum or Plasma <0.7 MG/DL 0.2 - 1.3 [facility] Alkaline phosphatase [Enzymatic activity/volume] in Serum or Plasma 104 U/L 38 - 126 [facility] Aspartate aminotransferase [Enzymatic activity/volume] in Serum or Plasma 19 U/L 5 - 40 [facility] Alanine aminotransferase [Enzymatic activity/volume] in Seru m or Plasma 17 U/L 7 - 56 [facility] Anion gap 3 in Serum or Plasma 9.0 mmol/L 8.0 - 16.0 [facility] AGE [address] [facility] al NON-AA GFR >60 mL/min [facility] ital AFR AMER GFR >60 mL/min [facility] Male GFR In terprentation 20-49 [...] >32 mL/min Normal ID Date Data Source [id number] 10/16/2019 05:29:00 PM [facility] Name Value Range Interpretation Code Description Data Annelise rce(s) Supporting Document(s) Hemoglobin A1c/Hemoglobin.total in Blood 5.4 % 4.4 - 6.1 [facility] {A1]{HB] ID Date Data Source [id number] 10/16/2019 05:20:00 PM [facility] Name Value Range Interpretation Code Description Data Annelise rce(s) Supporting Document(s) CBC W/AUTOMATED DIFF [facility] COMPLETE BLOOD COUNT Leukocytes [#/volume] in Blood by Automated count 7.6 10^3/uL 4.2 - 1 1.0 [facility] Erythrocytes [#/volume] in Blood by Automated count 4.92 10^6/uL 4. 50 - 6.30 [facility] Hemoglobin [Mass/volume] in Blood 15.2 g/dL 14.0 - 16.0 [facility] Hematocrit [Volume Fraction] of Blood by Automated count 46.3 % 4 1.0 - 51.0 [facility] Erythrocyte mean corpuscular volume [Entitic volume] by Auto mated count 94.1 fL 80.0 - 94.0 H [facility] Erythrocyte mean corpuscular hemoglobin [Entitic mass] by Automated count 30.9 pg 27.0 - 34.0 [facility] Erythrocyte mean corpuscular hemoglobin concentration [Mass/volume] by Automated count 32.8 g/dL 31.0 - 36.0 [facility] Erythrocyte distribution width [Ratio] by Automated count 13.9 % 11.5 - 14.8 [facility] Platelets [#/volume] in Blood by Automated count 197 10^3/uL 150 - 45 0 [facility] Platelet mean volume [Entitic volume] in Blood by Automated count 11.6 fL 7.4 - 10.4 H [facility] Neutrophils/100 leukocytes in Blood by Automated count 63.5 % 37. 0 - 80.0 [facility] Lymphocytes/100 leukocytes in Blood by Manual count 23.3 % 25.0 - 40.0 L [facility] Monocytes/100 leukocytes in Blood by Automated count 9.7 % 3.0 - 8.0 H [facility] Eosinophils/100 leukocytes in Blood by Automated count 1.9 % 0.0 - 7.0 [facility] Basophils/100 leukocytes in Blood by Automated count 0.7 % 0.0 - 2.0 [facility] %IG 0.9 % 0.0 - 0.0 H [facility] al %NRBC 0.0 % 0.0 - 0.0 [facility] Neutrophils [#/volume] in Blood by Automated count 4.81 10^3/uL 2.00 - 6.90 [facility] Lymphocytes [#/volume] in Blood by Automated count 1.76 10^3/uL 0.60 - 3.40 [facility] Monocytes [#/volume] in Blood by Automated count 0.73 10^3/uL 0.00 - 0.90 [facility] Eosinophils [#/volume] in Blood by Automated count 0.14 10^3/uL 0.00 - 0.70 [facility] Basophils [#/volume] in Blood by Automated count 0.05 10^3/uL 0.00 - 0.20 [facility] #IG 0.07 10^3/uL 0.00 - 0.10 [facility] #NRBC 0.00 10^3/uL 0.00 - 0.00 [facility] MANUAL DIFF NOT INDICATED [facility] RBC MORPH NOT INDICATED [facility] Procedure Vital Signs ID Date Data Source UNK Name Value Range Interpretation Code Description Data Source(s) Body surface area Derived from formula 1.89 m2 1.89 m2 [facility] ([facility]) Body mass index (BMI) [Ratio] 28.1 kg/m2 28.1 k g/m2 [facility] ([facility]) Body height 66 [in_i] 66 [in_i] [facility] ([facility]) 5'6" Body weight 78.983 kg 78.983 kg [facility] ([facility]) Body weight 174.12 [lb_av] 174.12 [lb_av] [facility] ([facility]) Oxygen saturation in Arterial blood by Pulse oximetry 97 % 97 % [facility] ([facility]) Respiratory rate 18 /min 18 /min [facility] ( [facility]) Body temperature 97.2 [degF] 97.2 [degF] [facility] ([facility]) Heart rate 78 /min 78 /min [facility] ([facility]) Diastolic blood pressure 72 mm[Hg] 72 mm[Hg] [facility] ([facility]) Systolic blood pressure 124 mm[Hg] 124 mm[Hg] [facility] Body surface area Derived from formula 1.87 m2 1.87 m2 [facility] ([facility], ) Body weight 77.112 kg 77.112 kg [facility] ([facility], ) [place] body weight 142 [lb_av] 142 [lb_av] [facility] T ([facility], ) Body mass index (BMI) [Ratio] 27.4 kg/m2 27.4 k g/m2 [facility] ([facility], ) Body weight 170.00 [lb_av] 170.00 [lb_av] [facility] T ([facility]) Body height 66 [in_i] 66 [in_i] [facility] 5'6" Diastolic blood pressure 70 mm[Hg] 70 mm[Hg] [facility] ([facility]) Systolic blood pressure 130 mm[Hg] 130 mm[Hg] [facility] ([facility]) Body surface area Derived from formula 1.89 m2 1.89 m2 [facility] ([facility]) Body weight 79.607 kg 79.607 kg [facility] ([facility]) [place] body weight 142 [lb_av] 142 [lb_av] [facility] T ([facility]) Body mass index (BMI) [Ratio] 28.3 kg/m2 28.3 k g/m2 [facility] ([facility]) Body weight 175.50 [lb_av] 175.50 [lb_av] [facility] ([facility]) Body height 66 [in_i] 66 [in_i] [facility] ([facility]) 5'6" Diastolic blood pressure 99 mm[Hg] 99 mm[Hg] [facility] ([facility]) Systolic blood pressure 153 mm[Hg] 153 mm[Hg] [facility] ([facility]) Body surface area Derived from formula 1.86 m2 1.86 m2 [facility] ([facility]) Body weight 76.205 kg 76.205 kg [facility] ([facility]) [place] body weight 142 [lb_av] 142 [lb_av] [facility] T ([facility]) Body mass index (BMI) [Ratio] 27.1 kg/m2 27.1 k g/m2 [facility] ([facility]) Body weight 168.00 [lb_av] 168.00 [lb_av] [facility] T ([facility]) Body height 66 [in_i] 66 [in_i] [facility] ([facility]) 5'6" Diastolic blood pressure 96 mm[Hg] 96 mm[Hg] [facility] ([facility], ) Systolic blood pressure 152 mm[Hg] 152 mm[Hg] [facility] Body surface area Derived from formula 1.86 m2 1.86 m2 [facility] ([facility]) Body mass index (BMI) [Ratio] 27.3 kg/m2 27.3 k g/m2 [facility] ([facility]) Body height 66 [in_i] 66 [in_i] [facility] ([facility]) 5'6" [facility] 76.829 [facility]29 [facility] Body weight 169.38 [lb_av] 169.38 [lb_av] [facility] T ([facility]) Oxygen saturation in Arterial blood by Pulse oximetry 98 % 98 % [facility] ([facility]) Respiratory rate 18 /min 18 /min [facility] ( [facility]) Body temperature 98.2 [degF] 98.2 [degF] [facility] ([facility]) Heart rate 84 /min 84 /min [facility] ([facility]) Diastolic blood pressure 80 mm[Hg] 80 mm[Hg] [facility] ([facility]) Systolic blood pressure 126 mm[Hg] 126 mm[Hg] [facility] ([facility]) Body surface area Derived from formula 1.85 m2 1.85 m2 [facility] ([facility]) Body mass index (BMI) [Ratio] 27.0 kg/m2 27.0 k g/m2 [facility] ([facility]) Body height 66 [in_i] 66 [in_i] [facility] ([facility]) 5'6" Body weight 75.865 kg 75.865 kg [facility] ([facility]) Body weight 167.25 [lb_av] 167.25 [lb_av] [facility] T ([facility]) Oxygen saturation in Arterial blood by Pulse oximetry 98 % 98 % [facility] ([facility]) Respiratory rate 18 /min 18 /min [facility] ( [facility]) Body temperature 97.6 [degF] 97.6 [degF] [facility] ([facility]) Heart rate 86 /min 86 /min [facility] ([facility]) Diastolic blood pressure--sitting 88 mm[Hg] 88 mm[Hg] [facility] Systolic blood pressure--sitting 144 mm[Hg] 144 mm[Hg] [facility] ([facility]) Diastolic blood pressure 88 mm[Hg] 88 mm[Hg] [facility] ([facility]) Systolic blood pressure 152 mm[Hg] 152 mm[Hg] [facility] ([facility]) Body surface area 1.85 m2 1.85 m2 [facility] ([facility]) Body surface area Derived from formula 1.87 m2 1.87 m2 [facility] ([facility]) Body mass index (BMI) [Ratio] 27.6 kg/m2 27.6 k g/m2 [facility] ([facility]) Body height 66 [in_i] 66 [in_i] [facility] ([facility]) 5'6" Body weight 77.566 kg 77.566 kg [facility] ([facility]) Body weight 171.00 [lb_av] 171.00 [lb_av] [facility] T ([facility]) Oxygen saturation in Arterial blood by Pulse oximetry 97 % 97 % [facility] ([facility]) Respiratory rate 18 /min 18 /min [facility] ( [facility]) Body temperature 98.0 [degF] 98.0 [degF] [facility] ([facility]) Heart rate 82 /min 82 /min [facility] ([facility]) Diastolic blood pressure 90 mm[Hg] 90 mm[Hg] [facility] ([facility]) Systolic blood pressure 142 mm[Hg] 142 mm[Hg] [facility] ([facility]) Body surface area 1.87 m2 1.87 m2 [facility] ([facility]) Body surface area 1.88 m2 1.88 m2 [facility] ([facility]) Body mass index (BMI) [Ratio] 27.8 kg/m2 27.8 k g/m2 [facility] ([facility]) Body height 66 [in_i] 66 [in_i] [facility] ([facility]) 5'6" Body weight 78.189 kg 78.189 kg [facility] ([facility]) Body weight 172.38 [lb_av] 172.38 [lb_av] [facility] T ([facility]) Oxygen saturation in Arterial blood by Pulse oximetry 97 % 97 % [facility] ([facility]) Respiratory rate 16 /min 16 /min [facility] Body temperature 98.2 [degF] 98.2 [degF] [facility] Heart rate 96 /min 96 /min [facility] Diastolic blood pressure 98 mm[Hg] 98 mm[Hg] [facility] ([facility]) Systolic blood pressure 150 mm[Hg] 150 mm[Hg] M [facility] ([facility])
[2020-11-29] MEDS ORDERED: CLINDAMYCIN 150MG CAPSULE PO ONE (02:45)
[2020-11-29] MEDS ORDERED: CLEO150C PO (02:47)
[2020-11-29 02:55] VITALS: BP 147/80
== END 2020-11-29 03:05 | disposition home or self-care (01) ==
LOC: M ED 23:54
DX: L03.314 Cellulitis of groin (principal); I10 Essential (primary) hypertension; E78.5 Hyperlipidemia, unspecified; M54.9 Dorsalgia, unspecified; F41.9 Anxiety disorder, unspecified; F33.9 Major depressive disorder, recurrent, unspecified; Z88.0 Allergy status to penicillin; Z79.899 Other long term (current) drug therapy

== ENCOUNTER → 2021-01-12 | Outpatient (CLI) | payer OTHER ==
[~2021-01-12] MED LIST changes: +CLEO150C PO
--- NOTE | 2021-01-12 07:45 | REP ---
INDICATION: ATHEROSCLEROSIS OF RENAL ARTERY. COMPARISON: 08/14/2020. TECHNIQUE: Ultrasound of the kidneys and duplex ultrasound of the renal arteries. FINDINGS: Ultrasound of the kidneys: The right kidney measures 11.2 x 5.4 x 5.6 cm. The right kidney measures 12.1 x 5.5 x 6.7 cm. The kidneys are normal size. Renal cortical echogenicity is normal bilaterally. There is no hydronephrosis on the right or the left. There are no renal calculi. There are no solid or cystic renal masses. Essentially negative bilateral renal ultrasound. Duplex ultrasound of the renal arteries: The patient has had an interim right main renal artery endovascular stent. Right kidney: Renal length is 11.2 cm. Peak renal artery flow velocity 161 centimeters/second Peak aortic velocity: 92.5 centimeters/second Renal-aortic ratio: 1.74 Resistive index: Upper pole 0.53, mid pole 0.61, lower pole 0.58 Acceleration time: Upper pole 0.058, mid pole 0.050, lower pole 0.063 Left kidney: Renal length is 12.1 cm. Peak renal artery flow velocity: 122 centimeters/second Peak aortic velocity: 92.5 centimeters/second Renal-aortic ratio: 1.31 Resistive index: Upper pole 0.57, mid pole 0.58, lower pole 0.53 Acceleration time: Upper pole 0.050, mid pole 0.037, lower pole 0.033 IMPRESSION: Patient has had an interval right main renal artery vascular stent. The peak flow velocities, waveforms and resistive indices are normal bilaterally today. There is no duplex ultrasound evidence of renal artery stenosis on the study today. <Electronically signed by Tomy Mcfadden > 01/12/21 0741
== END ==
LOC: M RAD 06:00
PROVIDERS: ATTEND Physician Assistant
DX: I70.1 Atherosclerosis of renal artery (principal); Z95.828 Presence of other vascular implants and grafts

== ENCOUNTER → 2021-05-13 | Outpatient (CLI) | payer OTHER ==
--- NOTE | 2021-05-13 14:17 | REP ---
INDICATION: PAIN. COMPARISON: None TECHNIQUE: Four views FINDINGS: There is no acute fracture, dislocation, subluxation, or joint effusion. IMPRESSION: Within normal limits <Electronically signed by Jerson Kirkpatrick > 05/13/21 [id number]
== END ==
LOC: M WUC 13:39
PROVIDERS: ATTEND Physician Assistant
DX: M25.522 Pain in left elbow (principal)

== ENCOUNTER → 2021-12-18 | Outpatient (CLI) | payer MEDICARE, OTHER ==
[~2021-12-18] MED LIST changes: -MONT10TA10 PO; +MONT10TA97 PO
[2021-12-18 11:05] LABS: ALBUMIN 3.6 GM/DL (3.2-5.2); BLOOD UREA NITROGEN 22 MG/DL (7-18); CALCIUM LEVEL 8.7 MG/DL (8.5-10.1); CARBON DIOXIDE LEVEL 29 MEQ/L (21-32); CHLORIDE LEVEL 109 MEQ/L (98-107); CREATININE FOR GFR 1.15 MG/DL (0.70-1.30); GLOMERULAR FILTRATION RATE > 60.0 (>56); GLUCOSE, FASTING 95 MG/DL (70-100); POTASSIUM SERUM 4.5 MEQ/L (3.5-5.1); SODIUM LEVEL 141 MEQ/L (136-145)
== END ==
LOC: M LAB 09:43
PROVIDERS: ATTEND Orthopaedic Surgery
DX: Z98.1 Arthrodesis status (principal)

== ENCOUNTER → 2022-12-01 | Outpatient (CLI) | payer MEDICARE, OTHER ==
[2022-12-01 13:44] LABS: HEMATOCRIT 43.7 % (42.0-52.0); HEMATOCRIT 43.8 % (42.0-52.0); HEMOGLOBIN 13.8 g/dl (13.5-17.5); MEAN CORPUSCULAR HEMOGLOBIN 30.4 pg (27.0-33.0); MEAN CORPUSCULAR HGB CONC 31.5 g/dl (32.0-36.5); MEAN CORPUSCULAR VOLUME 96.5 fl (80.0-96.0); PLATELET COUNT, AUTOMATED 223 10^3/uL (150-450); RED BLOOD COUNT 4.54 10^6/uL (4.30-6.10); WHITE BLOOD COUNT 6.2 10^3/uL (4.0-10.0)
[2022-12-01 14:07] LABS: IRON (FE) 104 UG/DL (65-175); PERCENT SATURATION 28.5 % (19.7-50.0); TOTAL IRON BINDING CAPACITY 365 UG/DL (250-425)
[2022-12-01 14:27] LABS: ALBUMIN 3.7 G/DL (3.2-5.2); ALKALINE PHOSPHATASE 91 U/L (46-116); ALT/SGPT 32 U/L (7.0-40); AST/SGOT 25 U/L (<34); BILIRUBIN,TOTAL 0.4 MG/DL (0.3-1.2); BLOOD UREA NITROGEN 25 MG/DL (9-23); CALCIUM LEVEL 9.9 MG/DL (8.5-10.1); CARBON DIOXIDE LEVEL 31 MMOL/L (20-31); CHLORIDE LEVEL 105 MMOL/L (98-107); CREATININE FOR GFR 1.22 MG/DL (0.70-1.30); FERRITIN 13.5 NG/ML (10.5-307.3); FREE T4 1.17 NG/DL (0.89-1.76); GLOMERULAR FILTRATION RATE > 60.0 (>56); GLUCOSE, FASTING 85 MG/DL (60-100); POTASSIUM SERUM 4.8 MMOL/L (3.5-5.1); SODIUM LEVEL 142 MMOL/L (136-145); THYROID STIMULATING HORMONE 1.943 uIU/ML (0.55-4.78); VITAMIN B12 LEVEL 306 PG/ML (211-911)
[2022-12-01 18:45] LABS: TOTAL PROTEIN 6.7 G/DL (5.7-8.2)
== END ==
LOC: M PLALAB 10:22
PROVIDERS: ATTEND Internal Medicine Hematology
DX: D53.9 Nutritional anemia, unspecified (principal)

== ENCOUNTER 2023-01-28 09:10 | Emergency (ER) | payer MEDICARE ==
[~2023-01-28] VITALS: Ht 167.6 cm; Wt 79.6 kg
[2023-01-28 10:57] VITALS: BP 119/75
== END 2023-01-28 11:33 | disposition home or self-care (01) ==
LOC: M ED 09:10
DX: I10 Essential (primary) hypertension (principal); M43.16 Spondylolisthesis, lumbar region; E78.5 Hyperlipidemia, unspecified; D35.02 Benign neoplasm of left adrenal gland; G43.909 Migraine, unspecified, not intractable, without status migrainosus; Z88.0 Allergy status to penicillin; Z79.01 Long term (current) use of anticoagulants; Z79.891 Long term (current) use of opiate analgesic; Z79.83 Long term (current) use of bisphosphonates; Z79.899 Other long term (current) drug therapy

== ENCOUNTER 2023-04-10 14:40 | Inpatient (IN) | payer MEDICARE ==
[~2023-04-10] VITALS: Ht 167.6 cm; Wt 79.2 kg
[2023-04-10] MEDS ORDERED: NS 1,000 ML IV ONE ×2 (14:55→17:45)
[2023-04-10 15:19] LABS: BASO % 0.4 % (0.0-1.0); EOS # 0.1 10^3/uL (0.0-0.5); EOS % 1.8 % (0.0-3.0); HEMATOCRIT 30.8 % (42.0-52.0); HEMOGLOBIN 10.1 g/dl (13.5-17.5); LYMPH # 0.7 10^3/uL (1.5-5.0); LYMPH % 13.5 % (24.0-44.0); MEAN CORPUSCULAR HEMOGLOBIN 30.6 pg (27.0-33.0); MEAN CORPUSCULAR HGB CONC 32.8 g/dl (32.0-36.5); MEAN CORPUSCULAR VOLUME 93.3 fl (80.0-96.0); MONO # 0.5 10^3/uL (0.0-0.8); MONO % 9.6 % (2.0-8.0); NEUTROPHILS # 3.8 10^3/uL (1.5-8.5); NEUTROPHILS % 74.3 % (36.0-66.0); PLATELET COUNT, AUTOMATED 184 10^3/uL (150-450); WHITE BLOOD COUNT 5.1 10^3/uL (4.0-10.0)
[2023-04-10 15:33] LABS: INR 1.12; PROTHROMBIN TIME 14.6 SECONDS (12.5-14.5)
[2023-04-10 15:34] LABS: PARTIAL THROMBOPLASTIN TIME 23.6 SECONDS (24.8-34.2)
[2023-04-10 15:45] LABS: CALCIUM LEVEL 7.6 MG/DL (8.5-10.1); CREATININE FOR GFR 1.47 MG/DL (0.70-1.30); GLOMERULAR FILTRATION RATE 52.2 (>56); MAGNESIUM LEVEL 1.9 MG/DL (1.8-2.4); POTASSIUM SERUM 3.9 MMOL/L (3.5-5.1)
[2023-04-10 15:47] LABS: FREE T4 0.99 NG/DL (0.89-1.76); THYROID STIMULATING HORMONE 2.597 uIU/ML (0.55-4.78)
[2023-04-10 15:49] LABS: RSV AMPLIFICATION NEGATIVE (NEGATIVE)
[2023-04-10] MEDS ORDERED: NS 1,000 ML IV SCH (16:25)
[2023-04-10 16:39] LABS: CK-MB VALUE MASS 1.1 NG/ML (<3.6)
[2023-04-10 16:40] LABS: MB/CK RELATIVE INDEX 1.22 (< OR =4)
[2023-04-10 17:02] LABS: CPK CREATINE PHOSPHOKINASE 92 U/L (46-171)
[2023-04-10 17:05] LABS: CK-MB VALUE MASS < 1.0 NG/ML (<3.6); MB/CK RELATIVE INDEX 1.08 (< OR =4)
[2023-04-10] MEDS ORDERED: VITA100093 PO (18:00)
[2023-04-10] MEDS ORDERED: GABA600T4 PO ×2 (18:00)
[2023-04-10] MEDS ORDERED: FLUO20CA22 PO (18:00)
[2023-04-10] MEDS ORDERED: LOSA50TA28 PO (18:00)
[2023-04-10] MEDS ORDERED: FENO160T10 PO (18:00)
[2023-04-10] MEDS ORDERED: AMLO1TAB24 PO (18:00)
[2023-04-10] MEDS ORDERED: PROP60TA14 PO (18:00)
[2023-04-10] MEDS ORDERED: ROSU40TA4 PO (18:00)
[2023-04-10] MEDS ORDERED: ASPI-226 PO (18:00)
[2023-04-10] MEDS ORDERED: CLOP75TA2 PO (18:01)
[2023-04-10] MEDS ORDERED: HOME MED LIST COMPLETE! XX SCH (18:05)
[2023-04-10 19:43] LABS: IRON (FE) 50 UG/DL (65-175); PERCENT SATURATION 16.2 % (19.7-50.0); TOTAL IRON BINDING CAPACITY 308 UG/DL (250-425)
[2023-04-10 19:45] LABS: FERRITIN 25.1 NG/ML (10.5-307.3); FOLATE 12.99 NG/ML (>5.4)
[2023-04-10 19:46] LABS: VITAMIN B12 LEVEL 238 PG/ML (211-911)
[2023-04-10] MEDS ORDERED: GABAPENTIN 300 MG CAP PO SCH (21:00)
[2023-04-10 21:05] VITALS: BP 133/68; TEMP 97; O2SAT 99
[2023-04-10] MEDS: HEPARIN SOD (PORCINE) 5000UNITS/ML 1ML VIAL/SYRINGE SC SCH (21:53)
[2023-04-11] VITALS: BP 126/68; TEMP 97.6; O2SAT 99
[2023-04-11 00:17] VITALS: BP 140/71; TEMP 96.5; O2SAT 98
[2023-04-11 07:25] VITALS: BP 152/80; TEMP 97.7; O2SAT 95
[2023-04-11 08:00] VITALS: BP 150/69; TEMP 97.4; O2SAT 97
[2023-04-11 08:05] LABS: BASO % 0.7 % (0.0-1.0); EOS # 0.1 10^3/uL (0.0-0.5); EOS % 1.3 % (0.0-3.0); HEMATOCRIT 32.6 % (42.0-52.0); HEMOGLOBIN 10.4 g/dl (13.5-17.5); LYMPH % 21.5 % (24.0-44.0); MEAN CORPUSCULAR HEMOGLOBIN 30.1 pg (27.0-33.0); MEAN CORPUSCULAR HGB CONC 31.9 g/dl (32.0-36.5); MEAN CORPUSCULAR VOLUME 94.2 fl (80.0-96.0); MONO # 0.5 10^3/uL (0.0-0.8); MONO % 10.3 % (2.0-8.0); NEUTROPHILS # 2.9 10^3/uL (1.5-8.5); NEUTROPHILS % 65.8 % (36.0-66.0); PLATELET COUNT, AUTOMATED 195 10^3/uL (150-450); RED BLOOD COUNT 3.46 10^6/uL (4.30-6.10); WHITE BLOOD COUNT 4.5 10^3/uL (4.0-10.0)
[2023-04-11] MEDS: HEPARIN SOD (PORCINE) 5000UNITS/ML 1ML VIAL/SYRINGE SC SCH (08:06)
[2023-04-11 08:14] LABS: BLOOD UREA NITROGEN 22 MG/DL (9-23); CALCIUM LEVEL 7.7 MG/DL (8.5-10.1); CARBON DIOXIDE LEVEL 27 MMOL/L (20-31); CHLORIDE LEVEL 112 MMOL/L (98-107); GLOMERULAR FILTRATION RATE > 60.0 (>56); GLUCOSE, FASTING 85 MG/DL (60-100); POTASSIUM SERUM 3.9 MMOL/L (3.5-5.1); SODIUM LEVEL 143 MMOL/L (136-145)
[2023-04-11] MEDS ORDERED: buPROPion **XL** TABLET 150MG (WELLBUTRIN XL) PO SCH (09:00)
[2023-04-11] MEDS ORDERED: CLOPIDOGREL 75 MG TAB PO SCH (09:00)
[2023-04-11] MEDS ORDERED: ROSUVASTATIN 10 MG TAB (CRESTOR) PO SCH (09:00)
[2023-04-11] MEDS ORDERED: FLUoxetine 20MG CAP PO SCH (09:00)
[2023-04-11] MEDS ORDERED: ASPIRIN 81MG ENTERIC TABLET PO SCH (09:00)
[2023-04-11] MEDS ORDERED: CYANOCOBALAMIN 500 MCG TAB PO SCH (09:00)
[2023-04-11] MEDS ORDERED: GABAPENTIN 400MG CAP PO SCH (09:00)
[2023-04-11] MEDS ORDERED: FERROUS GLUCONATE 324 MG TAB PO SCH (09:00)
[2023-04-11 12:00] VITALS: BP 150/69; TEMP 97.4; O2SAT 96
[2023-04-11] MEDS ORDERED: amLODIPine 5 MG TAB PO ONE (12:30)
[2023-04-11 13:05] VITALS: BP 150/69
[2023-04-11] MEDS ORDERED: LOSA50TA28 PO (14:15)
[2023-04-11] MEDS ORDERED: FERR32TA PO (14:15)
[2023-04-11] MEDS ORDERED: VITA500T40 PO (14:15)
== END 2023-04-11 15:52 | disposition home or self-care (01) | DRG 641 ==
LOC: M ED 14:40 → M ED INP 17:49 → ENRESERV 19:43 → M PCU 21:04
PROVIDERS: ADMIT Internal Medicine Nephrology; ATTEND Internal Medicine Nephrology
DX: E86.0 Dehydration (principal); N17.9 Acute kidney failure, unspecified; I95.9 Hypotension, unspecified; D64.9 Anemia, unspecified; I10 Essential (primary) hypertension; R55 Syncope and collapse; M19.90 Unspecified osteoarthritis, unspecified site; E78.5 Hyperlipidemia, unspecified; R19.7 Diarrhea, unspecified; Z79.82 Long term (current) use of aspirin; Z79.899 Other long term (current) drug therapy; Z88.0 Allergy status to penicillin; Z86.73 Personal history of transient ischemic attack (TIA), and cerebral infarction without residual deficits; F41.9 Anxiety disorder, unspecified; F32.A Depression, unspecified; E55.9 Vitamin D deficiency, unspecified

== ENCOUNTER 2023-04-27 12:31 | Emergency (ER) | payer MEDICARE, MEDICAID ==
[~2023-04-27] VITALS: Ht 167.6 cm; Wt 79.3 kg
[~2023-04-27 12:31] MED LIST changes: +AMLO1TAB24 PO; +ASPI-226 PO; +FENO160T10 PO; +FERR32TA PO; +FLUO20CA22 PO; +GABA600T4 PO; +LOSA50TA28 PO; +PROP60TA14 PO; +ROSU40TA4 PO; +VITA100093 PO; +VITA500T40 PO
[2023-04-27 16:31] LABS: BASO % 0.6 % (0.0-1.0); EOS # 0.1 10^3/uL (0.0-0.5); EOS % 2.3 % (0.0-3.0); HEMATOCRIT 36.8 % (42.0-52.0); HEMOGLOBIN 11.9 g/dl (13.5-17.5); LYMPH # 0.9 10^3/uL (1.5-5.0); LYMPH % 18.3 % (24.0-44.0); MEAN CORPUSCULAR HEMOGLOBIN 30.1 pg (27.0-33.0); MEAN CORPUSCULAR HGB CONC 32.3 g/dl (32.0-36.5); MEAN CORPUSCULAR VOLUME 92.9 fl (80.0-96.0); MONO # 0.5 10^3/uL (0.0-0.8); MONO % 10.9 % (2.0-8.0); NEUTROPHILS # 3.2 10^3/uL (1.5-8.5); NEUTROPHILS % 67.5 % (36.0-66.0); PLATELET COUNT, AUTOMATED 205 10^3/uL (150-450); RED BLOOD COUNT 3.96 10^6/uL (4.30-6.10); WHITE BLOOD COUNT 4.7 10^3/uL (4.0-10.0)
[2023-04-27 17:00] LABS: ALBUMIN 3.4 G/DL (3.2-5.2); ALKALINE PHOSPHATASE 94 U/L (46-116); ALT/SGPT 18 U/L (7.0-40); AST/SGOT 13 U/L (<34); BILIRUBIN,DIRECT < 0.1 MG/DL (<0.4); BILIRUBIN,TOTAL 0.3 MG/DL (0.3-1.2); TOTAL PROTEIN 6.3 G/DL (5.7-8.2)
[2023-04-27 18:37] VITALS: BP 148/89; TEMP 97.8; O2SAT 98
== END 2023-04-27 18:41 | disposition home or self-care (01) ==
LOC: M ED 12:31
DX: R31.9 Hematuria, unspecified (principal); I10 Essential (primary) hypertension; E78.5 Hyperlipidemia, unspecified; N40.1 Benign prostatic hyperplasia with lower urinary tract symptoms; Z87.891 Personal history of nicotine dependence; Z88.0 Allergy status to penicillin; Z79.811 Long term (current) use of aromatase inhibitors; Z79.82 Long term (current) use of aspirin; Z79.899 Other long term (current) drug therapy

== ENCOUNTER → 2023-05-10 | Outpatient (CLI) | payer MEDICARE, OTHER ==
[2023-05-10 18:02] LABS: APPEARANCE, URINE CLEAR (CLEAR); BACTERIA, URINE AUTO NEGATIVE (NEGATIVE); BILIRUBIN, URINE AUTO NEGATIVE (NEGATIVE); BLOOD, URINE BLOOD NEGATIVE (NEGATIVE); COLOR, URINE YELLOW (YELLOW); GLUCOSE, URINE (UA) AUTO NEGATIVE (NEGATIVE); KETONE, URINE AUTO NEGATIVE (NEGATIVE); LEUKOCYTE ESTERASE, URINE AUTO NEGATIVE (NEGATIVE); NITRITE, URINE AUTO NEGATIVE (NEGATIVE); PROTEIN, URINE AUTO NEGATIVE (NEGATIVE); RBC, URINE AUTO 0 /HPF (0-3); SPECIFIC GRAVITY URINE AUTO 1.014 (1.002-1.035); SQUAMOUS EPITHELIAL CELL UR AU 0 /HPF (0-6); UROBILINOGEN, URINE AUTO 0.2 mg/dL (0.0-2.0); WBC, URINE AUTO 1 /HPF (0-3)
== END ==
LOC: M LAB 14:33
PROVIDERS: ATTEND Urology
DX: N48.89 Other specified disorders of penis (principal); Z12.5 Encounter for screening for malignant neoplasm of prostate
CPT/HCPCS: 36415; 81001; G0103

== ENCOUNTER 2023-10-24 12:48 | Day surgery (SDC) | payer MEDICARE, OTHER ==
[~2023-10-24] VITALS: Ht 167.6 cm; Wt 79.8 kg
[~2023-10-24 12:48] MED LIST changes: +RANO500T2 PO
[2023-10-24] MEDS ORDERED: propofoL 200 MG/20 ML VIAL As Ordered ONE (14:15)
[2023-10-24 14:20] VITALS: TEMP 97.2
[2023-10-24 14:44] VITALS: BP 137/73; O2SAT 95
== END 2023-10-24 14:45 | disposition home or self-care (01) ==
LOC: M OPP 12:48
PROVIDERS: ATTEND Internal Medicine Gastroenterology
DX: D12.3 Benign neoplasm of transverse colon (principal); D12.4 Benign neoplasm of descending colon; K63.5 Polyp of colon; K52.9 Noninfective gastroenteritis and colitis, unspecified; F17.290 Nicotine dependence, other tobacco product, uncomplicated; Z79.02 Long term (current) use of antithrombotics/antiplatelets; Z79.82 Long term (current) use of aspirin; Z79.891 Long term (current) use of opiate analgesic; Z79.899 Other long term (current) drug therapy; Z88.0 Allergy status to penicillin

== ENCOUNTER → 2023-11-16 | Outpatient (CLI) | payer MEDICARE, OTHER ==
[2023-11-16 11:17] LABS: HEMATOCRIT 40.2 % (42.0-52.0); HEMOGLOBIN 12.7 g/dl (13.5-17.5); MEAN CORPUSCULAR HGB CONC 31.6 g/dl (32.0-36.5); MEAN CORPUSCULAR VOLUME 94.8 fl (80.0-96.0); PLATELET COUNT, AUTOMATED 270 10^3/uL (150-450); RED BLOOD COUNT 4.24 10^6/uL (4.30-6.10); WHITE BLOOD COUNT 6.1 10^3/uL (4.0-10.0)
[2023-11-16 11:35] LABS: HEMOGLOBIN A1c 5.3 % (4.0-6.0)
[2023-11-16 11:40] LABS: CREATININE, URINE 114.5 MG/DL; MALB URINE SIEMENS < 3.0 MG/L; MAU/CREAT RATIO 2.6 MCG/MG (0.0-30.0)
[2023-11-16 11:41] LABS: ALBUMIN 3.5 G/DL (3.2-5.2); BILIRUBIN,TOTAL 0.4 MG/DL (0.3-1.2); CHOLESTEROL RISK RATIO 3.66 (<5); CREATININE FOR GFR 1.35 MG/DL (0.70-1.30); GLOMERULAR FILTRATION RATE 57.4 (>49); HDL CHOLESTEROL 45.8 MG/DL (>40); LDL CHOLESTEROL 102.4 MG/DL (<100); MAGNESIUM LEVEL 1.9 MG/DL (1.8-2.4); NON-HDL-C 122.2 MG/DL; POTASSIUM SERUM 4.4 MMOL/L (3.5-5.1); TOTAL PROTEIN 6.7 G/DL (5.7-8.2)
[2023-11-16 11:42] LABS: THYROXINE (T4) 13.4 UG/DL (4.5-10.9)
[2023-11-16 11:43] LABS: FOLATE 13.96 NG/ML (>5.4); FREE T4 1.14 NG/DL (0.89-1.76); THYROID STIMULATING HORMONE 3.599 uIU/ML (0.55-4.78)
[2023-11-16 13:35] LABS: FREE T3 3.3 PG/ML (2.3-4.2)
== END ==
LOC: M WUC 10:00
PROVIDERS: ATTEND Registered Nurse
DX: R53.83 Other fatigue (principal); D64.9 Anemia, unspecified; E11.65 Type 2 diabetes mellitus with hyperglycemia; E78.5 Hyperlipidemia, unspecified

== ENCOUNTER → 2024-01-03 | Outpatient (CLI) | payer MEDICARE, OTHER | LOC: M PLALAB 08:19 | PROVIDERS: ATTEND Internal Medicine Hematology | DX: D75.89 Other specified diseases of blood and blood-forming organs (principal) ==

== ENCOUNTER → 2024-03-01 | Outpatient (CLI) | payer MEDICARE, OTHER ==
[~2024-03-01] MED LIST changes: +BUPR-597 PO; -BUPR300T92 PO; +FLUO-365 PO; -FLUO20CA22 PO; -ROSU40TA4 PO; +ROSU40TA63 PO
== END ==
LOC: M SLEEP 18:20
PROVIDERS: ATTEND Nurse Practitioner Family
DX: R40.0 Somnolence (principal)

== ENCOUNTER → 2024-12-28 | Outpatient (CLI) | payer MEDICARE ==
[~2024-12-28] MED LIST changes: +GABA-1172 PO; +GABA-1490 PO; -GABA-282 PO; -GABA600T4 PO; -ROSU40TA63 PO; +ROSU40TA81 PO
[2024-12-28 14:27] LABS: HEMATOCRIT 39.5 % (42.0-52.0); HEMOGLOBIN 12.7 g/dl (13.5-17.5); MEAN CORPUSCULAR HEMOGLOBIN 31.2 pg (27.0-33.0); MEAN CORPUSCULAR HGB CONC 32.2 g/dl (32.0-36.5); MEAN CORPUSCULAR VOLUME 97.1 fl (80.0-96.0); PLATELET COUNT, AUTOMATED 252 10^3/uL (150-450); RED BLOOD COUNT 4.07 10^6/uL (4.30-6.10); WHITE BLOOD COUNT 6.9 10^3/uL (4.0-10.0)
[2024-12-28 14:55] LABS: FREE T4 1.12 NG/DL (0.89-1.76); IRON (FE) 88 UG/DL (65-175); PERCENT SATURATION 26.9 % (19.7-50.0); TOTAL IRON BINDING CAPACITY 327 UG/DL (250-425)
[2024-12-28 14:56] LABS: ALBUMIN 3.5 G/DL (3.2-5.2); ALKALINE PHOSPHATASE 93 U/L (40-129); ALT/SGPT 76 U/L (7.0-40); AST/SGOT 29 U/L (<34); BILIRUBIN,TOTAL 0.3 MG/DL (0.3-1.2); BLOOD UREA NITROGEN 19 MG/DL (9-23); CALCIUM LEVEL 8.8 MG/DL (8.3-10.6); CARBON DIOXIDE LEVEL 28 MMOL/L (20-31); CHLORIDE LEVEL 107 MMOL/L (98-107); CREATININE FOR GFR 1.14 MG/DL (0.70-1.30); FERRITIN 61.4 NG/ML (10.5-307.3); GLOMERULAR FILTRATION RATE > 60.0 (>49); GLUCOSE, FASTING 82 MG/DL (74-106); POTASSIUM SERUM 4.5 MMOL/L (3.5-5.1); SODIUM LEVEL 143 MMOL/L (136-145); TESTOSTERONE 495 NG/DL (241-827); TOTAL PROTEIN 6.7 G/DL (5.7-8.2)
[2024-12-28 14:58] LABS: TOTAL 25(OH) VITAMIN D 55.1 NG/ML (20.0-100.0)
[2024-12-28 15:01] LABS: FREE T3 3.9 PG/ML (2.3-4.2); VITAMIN B12 LEVEL 346 PG/ML (211-911)
== END ==
LOC: M WUC 11:02
PROVIDERS: ATTEND Registered Nurse
DX: R53.83 Other fatigue (principal); Z79.899 Other long term (current) drug therapy

== ENCOUNTER → 2025-05-30 | Outpatient (CLI) | payer MEDICARE ==
[~2025-05-30] MED LIST changes: -BUPR-597 PO; +BUPR-766 PO
[2025-05-30 13:01] LABS: PLATELET COUNT, AUTOMATED 233 10^3/uL (150-450)
[2025-05-30 14:34] LABS: CPK CREATINE PHOSPHOKINASE 66.0 U/L (46-171)
[2025-05-30 15:01] LABS: ALT/SGPT 54.0 U/L (7.0-40); AST/SGOT 30.0 U/L (<34); CALCIUM LEVEL 9.0 MG/DL (8.3-10.6); CARBON DIOXIDE LEVEL 29.0 MMOL/L (20-31); CHLORIDE LEVEL 106.0 MMOL/L (98-107); CHOLESTEROL LEVEL 141.0 MG/DL (<200); CHOLESTEROL RISK RATIO 3.42 (<5); CREATININE FOR GFR 1.23 MG/DL (0.70-1.30); FREE T4 1.15 NG/DL (0.89-1.76); GLOMERULAR FILTRATION RATE 66.8 (>49); LDL CHOLESTEROL 74.2 MG/DL (<100); NON-HDL-C 99.8 MG/DL; POTASSIUM SERUM 4.7 MMOL/L (3.5-5.1); SODIUM LEVEL 145.0 MMOL/L (136-145); TOTAL 25(OH) VITAMIN D 76.3 NG/ML (20.0-100.0); TRIGLYCERIDES LEVEL 128.0 MG/DL (<150)
[2025-05-30 16:41] LABS: ESTIMATED AVERAGE GLUCOSE 100.0 MG/DL (60-110)
[2025-06-04 14:21] LABS: PSA SCREENING 0.47 NG/ML (< 4.00)
== END ==
LOC: M WUC 09:01
PROVIDERS: ATTEND Registered Nurse
DX: E78.2 Mixed hyperlipidemia (principal); I10 Essential (primary) hypertension; F33.9 Major depressive disorder, recurrent, unspecified; Z13.1 Encounter for screening for diabetes mellitus; Z12.5 Encounter for screening for malignant neoplasm of prostate
CPT/HCPCS: 36415; 80053; 80061; 82306; 82550; 83036; 84439; 84443; 84550; 85027; G0103

== ENCOUNTER → 2025-08-02 | Outpatient (CLI) | payer MEDICARE ==
[2025-08-02 13:28] LABS: ALT/SGPT 43 U/L (7.0-40); AST/SGOT 27 U/L (<34)
== END ==
LOC: M WUC 08:26
PROVIDERS: ATTEND Registered Nurse
DX: R74.01 Elevation of levels of liver transaminase levels (principal)